=== PATIENT | female | born 1950 | race Caucasian/White ===

== ENCOUNTER 2016-02-22 07:26 | Inpatient (IN) | payer OTHER, MEDICARE ==
[2016-02-22] MEDS ORDERED: morphine CARPU-JECT 2 MG/1 ML DISP.SYRIN IVPUSH ONE (08:08)
--- NOTE | 2016-02-22 08:09 | PDOC ---
Attending Attestation - Resident Resident Name: Galilea Wall - ED Attending Attestation I have performed the following: I have examined & evaluated the patient, The case was reviewed & discussed with the resident, I agree w/resident's findings & plan, Exceptions are as noted - HPI HPI: 02/22/16 08:08 The patient is a 65-year-old female who presents to the emergency department with hip pain, status post mechanical fall. She does report head trauma, but denies loss of consciousness. - Physicial Exam PE: 02/22/16 08:08 Vitals noted C-spine nontender Left hip with pain on any range of motion and palpation - Medical Decision Making 02/22/16 08:08 She is well-appearing, and in mild pain secondary to the left hip Will obtain head CT, labs, chest x-ray, hip x-ray 02/22/16 12:[address] noted There is no evidence of hip fracture However, the patient is unable to transfer out of the bed She is unable to stand She is unable to bear weight She states that she will be unable to perform her activities of daily living, and her will not be able to assist her Will admit for intractable pain secondary to a hip contusion Case discussed in detail with admitting provider including history, physical exam and ancillary studies. Admitting physician has assumed care for the patient, will follow all pending diagnostics and will complete the evaluation and treatment.
[2016-02-22] MEDS ORDERED: morphine CARPU-JECT 2 MG/1 ML DISP.SYRIN ONE (08:22)
[2016-02-22 08:47] LABS: EOSINOPHIL 17.5 % (0-4.5); MCH 26.6 pg (25.7-33.7); MCHC 32.3 g/dl (32.0-36.0); MEAN CELL VOLUME 82.2 fl (80-96); MEAN PLT VOLUME 9.2 fl (7.5-11.1); NEUTROPHILS 50.5 % (42.8-82.8); PLATELET COUNT 235 K/MM3 (134-434); RDW 15.1 % (11.6-15.6); WHITE BLOOD COUNT 10.9 K/mm3 (4.0-10.0)
--- NOTE | 2016-02-22 08:52 | PDOC ---
History of Present Illness <Lou Pulliam - Last Filed: 02/22/16 16:21> - History of Present Illness Initial Comments: 02/22/16 08:55 Patient is a 65 year old female with a PMHx of HTN, DM, Dermatitis with lymphedema, restless leg syndrome, fibromyalgia who presents to the ED s/p fall after feeling lightheaded this morning landing on her left hip. Patient reports she took benadryl this morning which caused her to be drowsy and lightheaded. Patient states she did hit her head when she fell and is having severe left hip and thigh pain, which prompted this ED visit. Patient denies urinary or bowel incontinence. She denies chest pain, palpitations, shortness of breath She denies fever, chills, nausea, vomiting She denies seizures, dizziness, headaches, loss of consciousness, acute visual changes PMHx: HTN, DM, Dermatitis with lymphedema, restless leg syndrome, fibromyalgia PSHx: Hysterectomy MEDS: Refer to ambulatory Allergies: Penicillins and Sulfa Social: Denies alcohol, drugs, and smoking PCP: Not on staff <Galilea Wall - Last Filed: 02/22/16 16:49> - General Chief Complaint: Injury Stated Complaint: SYNCOPE Time Seen by Provider: 02/22/16 08:04 Past History <Lou Pulliam - Last Filed: 02/22/16 16:21> - Past Medical History Diabetes: Yes HTN: Yes Psychiatric Problems: Yes - Surgical History Abdominal Surgery: Yes - Psycho/Social/Smoking Cessation Hx Suicidal Ideation: No Smoking History: Never smoked Have you smoked in the past 12 months: No Information on smoking cessation initiated: No Hx Alcohol Use: No Drug/Substance Use Hx: No Substance Use Type: None <Galilea Wall - Last Filed: 02/22/16 16:49> - Past Medical History Allergies/Adverse Reactions: Allergies Allergy/AdvReac Type Severity Reaction Status Date / Time Penicillins Allergy Verified 02/22/16 07:59 Sulfa (Sulfonamide Allergy Verified 02/22/16 07:59 Antibiotics) Home Medications: Ambulatory Orders Escitalopram Oxalate [Lexapro -] 10 mg PO DAILY 02/22/16 Furosemide [Lasix] 40 mg PO DAILY 02/22/16 Lisinopril [Prinivil] 10 mg PO DAILY 02/22/16 Metformin HCl [Glucophage] 500 mg PO DAILY 02/22/16 Oxycodone HCl/Acetaminophen [Percocet 5-325 mg Tablet] 1 - 2 tab PO HS 02/22/16 Pramipexole Di-HCl [Mirapex] 0.25 mg PO TID 02/22/16 Review of Systems - Review of Systems Constitutional: No: Chills, Diaphoresis, Fever, Night Sweats HEENTM: No: Blurred Vision, Throat Swelling, Difficulty Swallowing Respiratory: No: Cough, Shortness of Breath, SOB with Exertion, Wheezing, Productive cough Cardiac (ROS): Yes: Lightheadedness. No: Chest Pain, Edema, Irregular Heart Rate, Palpitations, Syncope, Chest Tightness ABD/GI: No: Diarrhea, Nausea, Vomiting, Abdominal cramping : No: Burning, Dysuria, Discharge Musculoskeletal: Yes: Joint Pain (chronic ). No: Back Pain, Muscle Pain Integumentary: No: Bruising, Dryness, Erythema Neurological: No: Headache, Numbness, Paresthesia, Seizure, Tingling, Tremors Endocrine: No: Flushing, Change in Weight Hematologic/Lymphatic: No: Anemia, Blood Clots <Galilea Wall - Last Filed: 02/22/16 16:49> *Physical Exam - Vital Signs Last Vital Signs Temp Pulse Resp BP Pulse Ox 98.2 F 94 H 18 111/77 99 02/22/16 07:48 02/22/16 07:48 02/22/16 07:48 02/22/16 07:48 02/22/16 07:48 <Lou Pulliam - Last Filed: 02/22/16 16:21> - Vital Signs Last Vital Signs Temp Pulse Resp BP Pulse Ox 98.2 F 94 H 18 111/77 99 02/22/16 07:48 02/22/16 07:48 02/22/16 07:48 02/22/16 07:48 02/22/16 07:48 <Galilea Wall - Last Filed: 02/22/16 16:49> Heart Score/ECG Review - ECG Intrepretation Comment:: 02/22/16 13:44 ECG obtained at 07:57 Normal sinus at 87 bpm Low voltage QRS <Lou Pulliam - Last Filed: 02/22/16 16:21> ED Treatment Course - LABORATORY CBC & Chemistry Diagram: 02/22/16 08:16 02/22/16 08:16 - ADDITIONAL ORDERS Additional order review: Laboratory Results 02/22/16 02/22/16 02/22/16 08:16 08:16 08:06 INR 1.11 PTT (Actin FS) 33.3 Sodium 140 Potassium 4.1 Chloride 103 Carbon Dioxide 30 Anion Gap 7 L BUN 18 Creatinine 1.1 H Creat Clearance w eGFR 49.69 Random Glucose 112 H Calcium 8.8 Total Bilirubin 0.2 AST 14 L ALT 19 Alkaline Phosphatase 84 Creatine Kinase 55 Troponin I < 0.02 Total Protein 7.1 Albumin 3.4 Blood Type A POSITIVE Antibody Screen Negative 02/22/16 08:16 RBC 4.20 MCV 82.2 MCHC 32.3 RDW 15.1 MPV 9.2 Neutrophils % 50.5 Lymphocytes % 24.9 Monocytes % 6.1 Eosinophils % 17.5 H Basophils % 1.0 - RADIOLOGY Radiograph Interpretation: 02/22/16 16:22 Left hip and pelvis x-ray as reviewed by Dr. Long reports no acute fracture. Chest X-ray as reviewed by Dr. Cameron reports no acute pathology. Head CT as reviewed by Dr. Montgomery reports no evidence of mass, hemmorhage, or acute vascular territory infarction. CT of the lower extremity and CT of pelvis as reviewed by Dr. Montgomery reports no CT evidence of acute fracture or dislocation. No definite hematoma or collections identified with normal visualization of urinary bladder. Normal images through the pelvis and retroperitoneum with no suspicious findings identified. Inguinal region lymph nodes identified bilaterally. - Medications Given in the ED: ED Medications Discontinued Medications Generic Name Dose Route Start Last Admin Trade Name Freq PRN Reason Stop Dose Admin Hydromorphone HCl 1 mg 02/22/16 09:32 02/22/16 09:38 Dilaudid Injection - IVPUSH 02/22/16 09:33 1 mg ONCE ONE Administration Morphine Sulfate 2 mg 02/22/16 08:08 02/22/16 08:29 Morphine Injection - IVPUSH 02/22/16 08:09 2 mg ONCE ONE Administration <Lou Pulliam - Last Filed: 02/22/16 16:21> - LABORATORY CBC & Chemistry Diagram: 02/22/16 08:16 02/22/16 08:16 - ADDITIONAL ORDERS Additional order review: 02/22/16 08:16 RBC 4.20 MCV 82.2 MCHC 32.3 RDW 15.1 MPV 9.2 Neutrophils % 50.5 Lymphocytes % 24.9 Monocytes % 6.1 Eosinophils % 17.5 H Basophils % 1.0 - RADIOLOGY Radiology Studies Ordered: Category Date Time Status HEAD CT WITHOUT CONTRAST [CT] Stat CT Scan 02/22/16 08:06 Ordered CHEST X-RAY PORTABLE* [RAD] Stat Radiology 02/22/16 08:07 Completed HIP & PELVIS-LEFT [RAD] Stat Radiology 02/22/16 08:10 Ordered - Medications Given in the ED: ED Medications Discontinued Medications Generic Name Dose Route Start Last Admin Trade Name Carlo PRN Reason Stop Dose Admin Morphine Sulfate 2 mg 02/22/16 08:08 02/22/16 08:29 Morphine Injection - IVPUSH 02/22/16 08:09 2 mg ONCE ONE Administration <Galilea Wall - Last Filed: 02/22/16 16:49> Medical Decision Making - Medical Decision Making 02/22/16 11:13 <Lou Pulliam - Last Filed: 02/22/16 16:21> *DC/Admit/Observation/Transfer - Attestations Scribe Attestion: 02/22/16 11:16 Documentation prepared by Lou Pulliam, acting as er medical technician for Galilea Wall MD/. <Lou Pulliam - Last Filed: 02/22/16 16:21> - Discharge Dispostion Admit: Yes <Galilea Wall - Last Filed: 02/22/16 16:49> Diagnosis at time of Disposition: Intractable pain Contusion, hip Qualifiers: Encounter type: initial encounter Laterality: left Qualified Code(s): S70.02XA - Contusion of left hip, initial encounter - Referrals - Patient Instructions Addendum entered and electronically signed by Galilea Wall RES 02/22/16 19:38 : Physical Exam Vital Sings: Vital Signs Temperature 98.2 F 02/22/16 07:48 Pulse Rate 88 02/22/16 14:11 Respiratory Rate 18 02/22/16 14:11 Blood Pressure 113/53 02/22/16 14:11 O2 Sat by Pulse Oximetry (%) 96 02/22/16 14:11 Constitutional: Yes: Other (Awake, alert, and in painful distress ) Eyes: Yes: WNL, Conjunctiva Clear HENT: Yes: WNL, Atraumatic, Normocephalic Neck: Yes: WNL, Supple Cardiovascular: Yes: WNL, Regular Rate and Rhythm Respiratory: Yes: WNL, Regular, CTA Bilaterally Gastrointestinal: Yes: Abdomen, Obese. No: Tenderness, Epigastrium, Tenderness , Rebound, Vomiting Extremities: Yes: Other (unable to move right leg, with pain upon palpation of left hip and thigh ) Edema: Yes Edema: LLE: 3+ (with chronic erythema), RLE: 3+ (with chronic erythema ) Neurological: Yes: WNL, Alert, Oriented. No: Aphasia, Confusion, Dysarthria, Facial Droop, Numbness, Tingling, Tremors Psychiatric: Yes: WNL, Alert, Oriented Labs: CBC, BMP 02/22/16 08:16 02/22/16 08:16
[2016-02-22 09:03] LABS: ACTIVATED PTT 33.3 SECONDS (26.9-34.4)
[2016-02-22 09:06] LABS: ALBUMIN 3.4 g/dl (3.4-5.0); ALK PHOS 84 U/L (45-117); ANION GAP 7 (8-16); BILIRUBIN,TOTAL 0.2 mg/dL (0.2-1.0); CALCIUM 8.8 mg/dL (8.5-10.1); CO2 30 mmol/L (21-32); CREATININE 1.1 mg/dL (0.55-1.02); GLUCOSE,RANDOM 112 mg/dL (74-106); SGOT/AST 14 U/L (15-37); SGPT/ALT 19 U/L (12-78); TOT PROT 7.1 g/dl (6.4-8.2)
[2016-02-22 09:09] LABS: TROPONIN I < 0.02 ng/ml (0.00-0.05)
[2016-02-22 09:31] LABS: INR 1.11 (0.82-1.09); PROTHROMBIN TIME (PATIENT) 12.2 SEC (9.98-11.88)
[2016-02-22] MEDS ORDERED: HYDROmorphone HCL CARPU-JECT 1 MG/1 ML DISP.SYRIN IVPUSH ONE (09:32)
[2016-02-22] MEDS ORDERED: HYDROmorphone HCL CARPU-JECT 1 MG/1 ML DISP.SYRIN ONE (09:36)
--- NOTE | 2016-02-22 12:23 | EKG ---
Test Reason : Blood Pressure : / mmHG Vent. Rate : 087 BPM Atrial Rate : 087 BPM P-R Int : 166 ms QRS Dur : 082 ms QT Int : 376 ms P-R-T Axes : 058 032 050 degrees QTc Int : 452 ms POOR DATA QUALITY, INTERPRETATION MAY BE ADVERSELY AFFECTED NORMAL SINUS RHYTHM LOW VOLTAGE QRS BORDERLINE ECG NO PREVIOUS ECGS AVAILABLE Confirmed by JUAN RIBERA MD ([id number]) on 02/22/2016 12:22:54 PM Referred By: Confirmed By:JUAN RIBERA MD
[2016-02-22] MEDS ORDERED: diphenhydrAMINE HCL 25 MG CAPSULE (FP) PO ONE ×4 (14:03→15:21)
[2016-02-22] MEDS: PRAMIPEXOLE DIHYDROCHLORIDE 0.25 MG TABLET PO SCH ×3 (14:08→23:02)
[2016-02-22] MEDS ORDERED: HEMOQUE TEST 1 EACH EACH ONE (17:22)
[2016-02-22] MEDS: INSULIN SLIDING SCALE (NOVOLOG) 1 VIAL SQ SCH ×2 (17:29→23:02)
[2016-02-22 17:36] LABS: TROPONIN I < 0.02 ng/ml (0.00-0.05)
[2016-02-22] MEDS ORDERED: OXYCODONE/APAP 5/325MG COMBO TABLET PO SCH (22:00)
[2016-02-22 22:26] VITALS: BMI 54.6
[2016-02-22] MEDS: ACETAMINOPHEN 325 MG TABLET (FP) PO SCH (23:11)
[2016-02-22] MEDS: oxyCODONE HCL 5 MG TABLET PO SCH (23:11)
[2016-02-23] MEDS: PRAMIPEXOLE DIHYDROCHLORIDE 0.25 MG TABLET PO SCH ×3 (06:53→22:02)
[2016-02-23] MEDS: metFORMIN HCL 500 MG TABLET (FP) PO SCH (06:53)
[2016-02-23] MEDS: INSULIN SLIDING SCALE (NOVOLOG) 1 VIAL SQ SCH ×4 (06:54→22:04)
[2016-02-23 08:19] LABS: BASOPHIL 0.8 % (0-2.0); EOSINOPHIL 14.2 % (0-4.5); MCH 26.7 pg (25.7-33.7); MCHC 32.5 g/dl (32.0-36.0); MEAN PLT VOLUME 9.4 fl (7.5-11.1); NEUTROPHILS 56.5 % (42.8-82.8); PLATELET COUNT 201 K/MM3 (134-434); RDW 15.2 % (11.6-15.6); WHITE BLOOD COUNT 9.7 K/mm3 (4.0-10.0)
[2016-02-23 08:41] LABS: ANION GAP 5 (8-16); CALCIUM 8.4 mg/dL (8.5-10.1); CO2 28 mmol/L (21-32); GLUCOSE,RANDOM 94 mg/dL (74-106)
[2016-02-23 08:46] LABS: ALK PHOS 72 U/L (45-117); BILIRUBIN,TOTAL 0.5 mg/dL (0.2-1.0); CREATININE 0.9 mg/dL (0.55-1.02); SGOT/AST 59 U/L (15-37); SGPT/ALT 25 U/L (12-78); TOT PROT 6.3 g/dl (6.4-8.2)
[2016-02-23] MEDS: FUROSEMIDE 40 MG TABLET (FP) PO SCH (10:08)
[2016-02-23] MEDS: ESCITALOPRAM OXALATE 10 MG TABLET (FP) PO SCH (10:08)
[2016-02-23] MEDS: LISINOPRIL 10 MG TABLET (FP) PO SCH (10:08)
--- NOTE | 2016-02-23 10:08 | HP ---
Admitting History and Physical - Admission Chief Complaint: s/p fall History of Present Illness: Patient is a 65 year old female with a PMHx of HTN, DM, Dermatitis with lymphedema, restless leg syndrome, fibromyalgia who presents to the ED s/p fall after feeling lightheaded this morning landing on her left hip. Patient reports she took benadryl this morning which caused her to be drowsy and lightheaded. Patient states she did hit her head when she fell and is having severe left hip and thigh pain, which prompted this ED visit. Patient denies urinary or bowel incontinence. She denies chest pain, palpitations, shortness of breath She denies fever, chills, nausea, vomiting She denies seizures, dizziness, headaches, loss of consciousness, acute visual changes PMHx: HTN, DM, Dermatitis with lymphedema, restless leg syndrome, fibromyalgia PSHx: Hysterectomy MEDS: Refer to ambulatory Allergies: Penicillins and Sulfa Social: Denies alcohol, drugs, and smoking PCP: Not on staff per patient she went downstairs to eat cookie and then didnot feel good and got up top call her then next thing she remeber was falling she has been feeling lighteaded and uncoordinated in last few days and has been dropping things whatever she picks up she drops, per patient she has been taking benadryl for her itchy legs for a long time and uses eucerin cream per patient she feels unsteady on her feet History Source: Patient - Past Medical History Cardiovascular: Yes: HTN, Hyperlipdemia ...: No Musculoskeletal: Yes: Other (dermatitis) Rheumatology: Yes: Fibromyalgia Endocrine: Yes: Diabetes Mellitus - Past Surgical History Past Surgical History: Yes: , Hysterectomy Additional Past Surgical History: shoulder repair - Smoking History Smoking history: Never smoked Have you smoked in the past 12 months: No - Alcohol/Substance Use Hx Alcohol Use: No Home Medications - Allergies Allergies/Adverse Reactions: Allergies Allergy/AdvReac Type Severity Reaction Status Date / Time Penicillins Allergy Verified 02/22/16 07:59 Sulfa (Sulfonamide Allergy Verified 02/22/16 07:59 Antibiotics) - Home Medications Home Medications: Ambulatory Orders Escitalopram Oxalate [Lexapro -] 10 mg PO DAILY 02/22/16 Furosemide [Lasix] 40 mg PO DAILY 02/22/16 Lisinopril [Prinivil] 10 mg PO DAILY 02/22/16 Metformin HCl [Glucophage] 500 mg PO DAILY 02/22/16 Oxycodone HCl/Acetaminophen [Percocet 5-325 mg Tablet] 1 - 2 tab PO HS 02/22/16 Pramipexole Di-HCl [Mirapex] 0.25 mg PO TID 02/22/16 Review of Systems - Review of Systems Neck: reports: No Symptoms Cardiovascular: reports: No Symptoms Respiratory: reports: No Symptoms Gastrointestinal: reports: No Symptoms Physical Examination Vital Signs: Vital Signs Temperature 99.3 F 02/23/16 05:42 Pulse Rate 96 H 02/23/16 05:42 Respiratory Rate 18 02/23/16 05:42 Blood Pressure 116/50 02/23/16 05:42 O2 Sat by Pulse Oximetry (%) 98 02/23/16 04:00 Constitutional: Yes: Calm Cardiovascular: Yes: Regular Rate and Rhythm, S1, S2 Respiratory: Yes: CTA Bilaterally Gastrointestinal: Yes: Normal Bowel Sounds, Soft Extremities: Yes: Other (lymphedema) Edema: Yes Labs: CBC, BMP 02/23/16 07:40 02/23/16 07:40 Problem List - Problems (1) Contusion, hip Assessment/Plan: PT eval LS spine done negative neuro eval carotid doppler echo will hold po benadryl and try bendaryl cream instead iv hydration for anohter 12 hrs for elevated CK Code(s): S70.00XA - CONTUSION OF UNSPECIFIED HIP, INITIAL ENCOUNTER Qualifiers : Encounter type: initial encounter Laterality: left Qualified Code(s ): S70.02XA - Contusion of left hip, initial encounter (2) Diabetes Assessment/Plan: metformin check bmg [id number] lipid panel Code(s): E11.9 - TYPE 2 DIABETES MELLITUS WITHOUT COMPLICATIONS Qualifiers: Diabetes mellitus type: type 2 (3) HTN (hypertension) Assessment/Plan: lisinopril Code(s): I10 - ESSENTIAL (PRIMARY) HYPERTENSION (4) Restless leg syndrome Assessment/Plan: mirapex Code(s): G25.81 - RESTLESS LEGS SYNDROME
[2016-02-23] MEDS ORDERED: MINERAL OIL/PETROLAT/WATER TOPICAL CREAM 454 GM JAR TP PRN (10:09)
[2016-02-23] MEDS ORDERED: SODIUM CHLORIDE 1,000 ML IV SCH (10:30)
--- NOTE | 2016-02-23 18:26 | CONSULT ---
Consult - text type - Consultation Consultation Note: NEUROLOGY CONSULTATION is greatly appreciated: This 65 yo RH woman with h/o HTN, DM, depression, lymphedema on insulin , lisinopril, lexapro, glucophage and lasix is well-known to me for treatment of chronic Restless Legs Syndrome (RLS) with Pramipexole .375 mg BID and 1.125 mg qHS. Over the last month has had increased leg swelling and redness for which Dr. Manjinder Dietz gave Bioxin 500 mg BID about 2 weeks ago without significant improvement in leg redness or swelling. Has felt "weak" and "unwell" over the last few weeks. Walks with cane at home but has "2 walkers." Now admitted after a fall in her kitchen yesterday morning. + head trauma. -LOC. Patient denies sequellae. Patient feels "a little steadier" in PT today and could walk up steps. NAHOMY: Obese. Scattered petichial skin lesions over arms and legs. No evidence of external head trauma. B/L lymphedema with diffuse erythema, blisters. NEURO: awake, alert, MS/speech: Normal CN II-XII: Normal. Motor: No drift. Normal strength. Decreased LE reflexes No FTN Dystaxia Decreased vibration in feet. Slight shuffle, slight waddle. IMP: Essentially normal Neurological Exam RLS Diabetic Peripheral Neuropathy. Syncope vs simple fall. SUGGEST: Check orthostatic BP's. Increase pramipexole to .25 BID and .5 qHS. Consider ID consult and possible Rx of cellulitis Continue PT with walker. Encourage use of walker at home. Dermatology consult. Check ESR, CRP, CASSANDRA, CK. Thank you very much, Gurmeet Loyd MD
[2016-02-23] MEDS ORDERED: PT OWN MED DRAWER 7, Y5N ONE (21:40)
[2016-02-23] MEDS: ACETAMINOPHEN 325 MG TABLET (FP) PO SCH (22:02)
[2016-02-23] MEDS: HEPARIN NA (PORCINE) 5,000 UNITS/ML 1ML VIAL SQ SCH (22:02)
[2016-02-23] MEDS: oxyCODONE HCL 5 MG TABLET PO SCH (22:03)
[2016-02-24] MEDS ORDERED: PT OWN MED DRAWER 7, Y5N ONE ×3 (05:47→21:51)
[2016-02-24] MEDS: PRAMIPEXOLE DIHYDROCHLORIDE 0.25 MG TABLET PO SCH ×3 (06:06→21:57)
[2016-02-24] MEDS: INSULIN SLIDING SCALE (NOVOLOG) 1 VIAL SQ SCH ×4 (06:07→21:57)
[2016-02-24] MEDS: metFORMIN HCL 500 MG TABLET (FP) PO SCH (06:38)
[2016-02-24 09:47] LABS: ALK PHOS 70 U/L (45-117); ANION GAP 5 (8-16); BILIRUBIN,TOTAL 0.4 mg/dL (0.2-1.0); CHOLESTEROL 151 mg/dL (50-200); CO2 26 mmol/L (21-32); CREATININE 0.8 mg/dL (0.55-1.02); GLUCOSE,RANDOM 86 mg/dL (74-106); SGOT/AST 45 U/L (15-37); SGPT/ALT 22 U/L (12-78); TOT PROT 6.3 g/dl (6.4-8.2)
[2016-02-24 09:49] LABS: C-REACTIVE PROTEIN 2.9 MG/DL (0.00-0.3)
[2016-02-24] MEDS: HEPARIN NA (PORCINE) 5,000 UNITS/ML 1ML VIAL SQ SCH ×2 (10:08→21:57)
[2016-02-24] MEDS: LISINOPRIL 10 MG TABLET (FP) PO SCH (10:08)
[2016-02-24] MEDS: ESCITALOPRAM OXALATE 10 MG TABLET (FP) PO SCH (10:08)
[2016-02-24] MEDS: FUROSEMIDE 40 MG TABLET (FP) PO SCH (10:08)
[2016-02-24 10:23] LABS: BASOPHIL 0.6 % (0-2.0); EOSINOPHIL 14.2 % (0-4.5); MCH 26.7 pg (25.7-33.7); MCHC 32.4 g/dl (32.0-36.0); MEAN CELL VOLUME 82.3 fl (80-96); MEAN PLT VOLUME 9.8 fl (7.5-11.1); NEUTROPHILS 55.3 % (42.8-82.8); PLATELET COUNT 185 K/MM3 (134-434); RDW 14.8 % (11.6-15.6); WHITE BLOOD COUNT 9.6 K/mm3 (4.0-10.0)
--- NOTE | 2016-02-24 12:59 | PN ---
Progress Note, Physician History of Present Illness: FEELS BETTER NO DIZZINESS - Current Medication List Current Medications: Active Medications Acetaminophen (Tylenol -) 325 mg PO HS [facility] Last Admin: 02/23/16 22:02 Dose: 325 mg Escitalopram Oxalate (Lexapro -) 10 mg PO DAILY [facility] Last Admin: 02/24/16 10:08 Dose: 10 mg Furosemide (Lasix -) 40 mg PO DAILY [facility] Last Admin: 02/24/16 10:08 Dose: 40 mg Heparin Sodium (Porcine) (Heparin -) 5,000 unit SQ BID [facility] Last Admin: 02/24/16 10:08 Dose: 5,000 unit Insulin Aspart (Novolog Vial Sliding Scale -) 1 vial SQ ACHS [facility] PRN Reason: Protocol Last Admin: 02/24/16 11:48 Dose: Not Given Lisinopril (Prinivil) 10 mg PO DAILY [facility] Last Admin: 02/24/16 10:08 Dose: 10 mg Metformin HCl (Glucophage -) 500 mg PO ACBK [facility] Last Admin: 02/24/16 06:38 Dose: 500 mg Multi-Ingredient Lotion (Eucerin (Large Jar) -) 1 applic TP BID PRN PRN Reason: DRY SKIN Oxycodone HCl (Roxicodone -) 5 mg PO HS [facility] Last Admin: 02/23/16 22:03 Dose: 5 mg Pramipexole Dihydrochloride (Mirapex -) 0.25 mg PO TID [facility] Last Admin: 02/24/16 06:06 Dose: 0.25 mg Zinc Acetate/Diphenhydramine (Benadryl 2% Cream) 1 applic TP TID [facility] Last Admin: 02/24/16 06:06 Dose: 1 applic - Objective Vital Signs: Vital Signs Temperature 98.3 F 02/24/16 06:00 Pulse Rate 86 02/24/16 06:00 Respiratory Rate 20 02/24/16 06:00 Blood Pressure 100/59 02/24/16 06:00 O2 Sat by Pulse Oximetry (%) 98 02/23/16 20:00 Cardiovascular: Yes: Regular Rate and Rhythm, Murmur Respiratory: Yes: Regular, CTA Bilaterally Gastrointestinal: Yes: Normal Bowel Sounds, Soft Edema: Yes Integumentary: Yes: Erythema, Venous Stasis Changes Labs: CBC, BMP 02/24/16 07:25 02/24/16 07:25 INR, PTT INR 1.11 (0.82-1.09) 02/22/16 08:16 Problem List - Problems (1) Contusion, hip Assessment/Plan: PT MONITOR CT NO FX Code(s): S70.00XA - CONTUSION OF UNSPECIFIED HIP, INITIAL ENCOUNTER Qualifiers : Encounter type: initial encounter Laterality: left Qualified Code(s ): S70.02XA - Contusion of left hip, initial encounter (2) Diabetes Assessment/Plan: BGM Code(s): E11.9 - TYPE 2 DIABETES MELLITUS WITHOUT COMPLICATIONS Qualifiers: Diabetes mellitus type: type 2 (3) HTN (hypertension) Assessment/Plan: MONITOR STABLE Vital Signs Period Temp Pulse Resp BP Sys/Garcia Pulse Ox Last 24 Hr 98.2 F-99.6 F 86-98 20-20 100-141/49-80 98 Code(s): I10 - ESSENTIAL (PRIMARY) HYPERTENSION (4) Restless leg syndrome Assessment/Plan: PER NEURO Code(s): G25.81 - RESTLESS LEGS SYNDROME (5) Anemia Assessment/Plan: W/U ORDERED FOLLOW CBC Code(s): D64.9 - ANEMIA, UNSPECIFIED (6) Syncope Assessment/Plan: POSSIBLE--VS FALL?? W/U IN PROGRESS CARDIO Code(s): R55 - SYNCOPE AND COLLAPSE (7) Edema Assessment/Plan: ON DIURETICS ID CONSULT__POSSIBLE CELLULITIS Code(s): R60.9 - EDEMA, UNSPECIFIED (8) Aortic stenosis Assessment/Plan: CARDIO Code(s): I35.0 - NONRHEUMATIC AORTIC (VALVE) STENOSIS
--- NOTE | 2016-02-24 15:19 | CONSULT ---
Consult Consult Specialty:: Cardiology Referred by:: Dr Weinberg Reason for Consultation:: Aortic stenosis - History of Present Illness Chief Complaint: Fall History of Present Illness: 65 yo obese female, with HTN, DM, Dermatitis with lymphedema, restless leg syndrome, fibromyalgia here s/p fall after feeling lightheaded in setting of benadryl use. Patient has no hx of CT or CP syndrome or CHF. She knows she has mild and is followed by Dr Angel Isaac at [facility]. She doesn't sleep much at night, was sitting at her kitchen counter at 5:30 in AM, working on computer when she felt "odd", dizzy and fell. She remembers falling and denies LOC. She also denies CP, palpitations or SOB. At baseline, she has no dizziness, CP, syncope. Echo done yesterday shows mild AAS . Hence this consult - Past Medical History Cardio/Vascular: Yes: Aortic Stenosis (followe dby Dr Angel Isaac), HTN, Hyperlipdemia, Other (edema/lymohedema -. lasix bid) ...: No Musculoskeletal: Yes: Other (dermatitis) Rheumatology: Yes: Fibromyalgia Endocrine: Yes: Diabetes Mellitus - Past Surgical History Past Surgical History: Yes: , Hysterectomy Additional Surgical History: b/l rotator cuff surgeries - Alcohol/Substance Use Hx Alcohol Use: No - Smoking History Smoking history: Never smoked Have you smoked in the past 12 months: No - Social History Usual Living Arrangement: With Spouse Home Medications - Allergies Allergies/Adverse Reactions: Allergies Allergy/AdvReac Type Severity Reaction Status Date / Time Penicillins Allergy Verified 02/22/16 07:59 Sulfa (Sulfonamide Allergy Verified 02/22/16 07:59 Antibiotics) - Home Medications Home Medications: Ambulatory Orders Escitalopram Oxalate [Lexapro -] 10 mg PO DAILY 02/22/16 Furosemide [Lasix] 40 mg PO DAILY 02/22/16 Lisinopril [Prinivil] 10 mg PO DAILY 02/22/16 Metformin HCl [Glucophage] 500 mg PO DAILY 02/22/16 Oxycodone HCl/Acetaminophen [Percocet 5-325 mg Tablet] 1 - 2 tab PO HS 02/22/16 Pramipexole Di-HCl [Mirapex] 0.25 mg PO TID 02/22/16 Family Disease History - Family Disease History Family History: Denies (premature CAD) Review of Systems - Review of Systems Constitutional: reports: No Symptoms Eyes: reports: No Symptoms HENT: reports: No Symptoms Neck: reports: No Symptoms Cardiovascular: reports: Edema Gastrointestinal: reports: No Symptoms Genitourinary: reports: No Symptoms Musculoskeletal: reports: Muscle Weakness Neurological: reports: Dizziness Psychiatric: reports: No Symptoms Physical Exam Vital Signs: Vital Signs Temperature 97.6 F 02/24/16 13:29 Pulse Rate 106 H 02/24/16 13:29 Respiratory Rate 22 02/24/16 13:29 Blood Pressure 125/64 02/24/16 10:00 O2 Sat by Pulse Oximetry (%) 98 02/24/16 12:00 Constitutional: Yes: No Distress, Obese Eyes: Yes: Conjunctiva Clear HENT: Yes: Atraumatic Neck: Yes: Supple Cardiovascular: Yes: Regular Rate and Rhythm, Murmur (KOREY at base) Respiratory: Yes: CTA Bilaterally Gastrointestinal: Yes: Normal Bowel Sounds, Soft, Abdomen, Obese. No: Tenderness Extremities: Yes: Other (warm, lymphedematous changes) Edema: Yes Peripheral Pulses WNL: Yes Neurological: Yes: Alert, Oriented Psychiatric: Yes: Alert, Oriented Labs: CBC, BMP 02/24/16 07:25 02/24/16 07:25 Imaging - Results Chest X-ray: Report Reviewed, Image Reviewed EKG: Report Reviewed, Image Reviewed Other: Other (Echo (02/23/16) -. Nl LV function. mild LAE, trace-mild MR, mild TR , PASP 30-40, mild ) Assessment/Plan 65 yo obese female, with the above history, here with a fall. She denies LOC, though it is possible that she may have fallen asleep. She remembers not feeling right, before she feel. No evidence of ACS or CHF ? orthostasis, which pramiprexole can cause -. ordered, but not yet done Mild on echo (known to pt 0) -> would not cause symptoms at that level. Rec: Proceed with orthostatics No other cardiac testing warranted Continue current meds Pamiprexole being tapered by Dr Loyd Consider oupt lymphedema therapy Pt to follow with regular beam house inspector after d/c Thanks!
--- NOTE | 2016-02-24 15:31 | PN ---
Progress Note (short form) - Note Progress Note: ID Consult dictated Bilateral LE cellulitis PCN allergy Empiric vancomycin 1gm IVPB q12h
[2016-02-24] MEDS ORDERED: VANCOMYCIN 1 GRAM (PRE-DOCKED) 250 ML IVPB SCH (16:00)
[2016-02-24] MEDS: VANCOMYCIN 1 GRAM (PRE-DOCKED) 250 ML IVPB SCH (17:20)
[2016-02-24 17:58] LABS: FERRITIN 46.758 ng/ml (6.9-282.5); LDL CHOLESTEROL (ONLY SJRH) 101 mg/dL (5-100)
--- NOTE | 2016-02-24 19:47 | CONS ---
DATE OF CONSULTATION: DATE OF DICTATION: 02/24/2016 HISTORY OF PRESENT ILLNESS: The patient is a 65-year-old female who was evaluated for bilateral lower extremity cellulitis. She was admitted to the hospital on February 22, 2016, after a fall. She had sustained trauma to her left hip. She reports that over the past several weeks, she has had increasing lower extremity swelling. She had been treated as an outpatient with Biaxin for possible cellulitis without significant improvement. She has a history of PENICILLIN and SULFA allergies. She is now noted to have patchy erythema and warmth involving both lower extremities bilaterally. She denies any traumatic injury other than the fall. No insect or animal bites or scratches. No associated fever or chills. She has had no recent hospitalizations. PAST MEDICAL HISTORY: Positive for hypertension, diabetes mellitus, chronic lymphedema of the lower extremities bilaterally, restless leg syndrome, fibromyalgia. PAST SURGICAL HISTORY: Status post hysterectomy. ALLERGIES: PENICILLIN and SULFA. MEDICATIONS: Include Tylenol, Prinivil, heparin, Lexapro, Glucophage, NovoLog, Lasix, oxycodone. SOCIAL HISTORY: She lives at home with her . She is a nonsmoker, nondrinker. No recent travel or pet exposure. SYSTEMS REVIEW: Neurologic: No loss of consciousness, seizure activity, focal weakness. Cardiac: Negative chest pain or palpitations. Respiratory: Negative cough or sputum production. Gastrointestinal: Negative vomiting. No diarrhea. Genitourinary: Negative urinary tract infection. LABORATORY DATA: White count 9.6, hematocrit 30.8, platelet count 185, creatinine 0.8. PHYSICAL EXAMINATION: General: On examination, she is awake and alert. She is no acutely toxic appearing. She is obese. Vital Signs: Temperature 97.6, blood pressure 135/67, pulse 94 and regular, respirations 20 per minute. HEENT: Sclerae anicteric. Heart: Heart sounds S1, S2. Lungs: Clear. Abdomen: Obese, soft, nontender. Extremities: Positive for bilateral lower extremity edema and lymphedema. There is patchy erythema involving both lower extremities as well as superficial ulcerations. There is no lymphangitic streaking. She also has dry ulcerations of the upper extremities bilaterally. IMPRESSION: 1. Bilateral lower extremity cellulitis. 2. Chronic lymphedema of the lower extremities bilaterally. 3. PENICILLIN and SULFA allergies. PLAN: Will obtain blood cultures to rule out possible secondary bacteremia. Empiric coverage skin pathogens in this PENICILLIN and SULFA allergic patient with vancomycin 1 g IV piggyback every 8 hours , diuretic therapy. Will follow. Thank you for the kind referral. ANN-MARIE BYRNE M.D. [id number]
[2016-02-24] MEDS: oxyCODONE HCL 5 MG TABLET PO SCH (21:57)
[2016-02-24] MEDS: ACETAMINOPHEN 325 MG TABLET (FP) PO SCH (21:58)
[2016-02-25] MEDS: VANCOMYCIN 1 GRAM (PRE-DOCKED) 250 ML IVPB SCH ×2 (03:38→16:48)
[2016-02-25] MEDS ORDERED: PT OWN MED DRAWER 7, Y5N ONE (06:08)
[2016-02-25] MEDS: INSULIN SLIDING SCALE (NOVOLOG) 1 VIAL SQ SCH ×4 (06:10→21:52)
[2016-02-25] MEDS: PRAMIPEXOLE DIHYDROCHLORIDE 0.25 MG TABLET PO SCH ×3 (06:10→21:47)
[2016-02-25] MEDS: metFORMIN HCL 500 MG TABLET (FP) PO SCH (06:10)
[2016-02-25 08:13] LABS: MCH 27.1 pg (25.7-33.7); MCHC 33.2 g/dl (32.0-36.0); MEAN CELL VOLUME 81.8 fl (80-96); PLATELET COUNT 198 K/MM3 (134-434); RDW 15.1 % (11.6-15.6); WHITE BLOOD COUNT 10.5 K/mm3 (4.0-10.0)
[2016-02-25] MEDS: FUROSEMIDE 40 MG TABLET (FP) PO SCH (09:48)
[2016-02-25] MEDS: ESCITALOPRAM OXALATE 10 MG TABLET (FP) PO SCH (09:49)
[2016-02-25] MEDS: HEPARIN NA (PORCINE) 5,000 UNITS/ML 1ML VIAL SQ SCH ×2 (09:49→21:47)
[2016-02-25] MEDS: LISINOPRIL 10 MG TABLET (FP) PO SCH (09:49)
--- NOTE | 2016-02-25 12:30 | PN ---
Progress Note, Physician History of Present Illness: FEELS BETTER NO DIZZINESS - Current Medication List Current Medications: Active Medications Acetaminophen (Tylenol -) 325 mg PO HS [facility] Last Admin: 02/24/16 21:58 Dose: 325 mg Escitalopram Oxalate (Lexapro -) 10 mg PO DAILY [facility] Last Admin: 02/25/16 09:49 Dose: 10 mg Furosemide (Lasix -) 40 mg PO DAILY [facility] Last Admin: 02/25/16 09:48 Dose: 40 mg Heparin Sodium (Porcine) (Heparin -) 5,000 unit SQ BID [facility] Last Admin: 02/25/16 09:49 Dose: 5,000 unit Vancomycin HCl (Vancomycin (Pre-Docked)) 250 mls @ 166.667 mls/hr IVPB BID@0400 ,1600 [facility] Last Admin: 02/25/16 03:38 Dose: 166.667 mls/hr Insulin Aspart (Novolog Vial Sliding Scale -) 1 vial SQ ACHS [facility] PRN Reason: Protocol Last Admin: 02/25/16 11:44 Dose: Not Given Lisinopril (Prinivil) 10 mg PO DAILY [facility] Last Admin: 02/25/16 09:49 Dose: 10 mg Metformin HCl (Glucophage -) 500 mg PO ACBK [facility] Last Admin: 02/25/16 06:10 Dose: 500 mg Multi-Ingredient Lotion (Eucerin (Large Jar) -) 1 applic TP BID PRN PRN Reason: DRY SKIN Oxycodone HCl (Roxicodone -) 5 mg PO HS [facility] Last Admin: 02/24/16 21:57 Dose: 5 mg Pramipexole Dihydrochloride (Mirapex -) 0.25 mg PO TID [facility] Last Admin: 02/25/16 06:10 Dose: 0.25 mg Zinc Acetate/Diphenhydramine (Benadryl 2% Cream) 1 applic TP TID [facility] Last Admin: 02/25/16 06:10 Dose: 1 applic - Objective Vital Signs: Vital Signs Temperature 99.1 F 02/25/16 06:00 Pulse Rate 100 H 02/25/16 06:00 Respiratory Rate 20 02/25/16 06:00 Blood Pressure 131/70 02/25/16 06:00 O2 Sat by Pulse Oximetry (%) 98 02/25/16 04:00 Cardiovascular: Yes: S1, S2 Respiratory: Yes: Regular, CTA Bilaterally Gastrointestinal: Yes: Normal Bowel Sounds, Soft Edema: Yes Integumentary: Yes: Erythema, Venous Stasis Changes Labs: INR, PTT INR 1.11 (0.82-1.09) 02/22/16 08:16 Problem List - Problems (1) Contusion, hip Assessment/Plan: PT MONITOR CT NO FX Code(s): S70.00XA - CONTUSION OF UNSPECIFIED HIP, INITIAL ENCOUNTER Qualifiers : Encounter type: initial encounter Laterality: left Qualified Code(s ): S70.02XA - Contusion of left hip, initial encounter (2) Diabetes Assessment/Plan: BGM Code(s): E11.9 - TYPE 2 DIABETES MELLITUS WITHOUT COMPLICATIONS Qualifiers: Diabetes mellitus type: type 2 (3) HTN (hypertension) Assessment/Plan: MONITOR STABLE Vital Signs Period Temp Pulse Resp BP Sys/Garcia Pulse Ox Last 24 Hr 98.2 F-99.6 F 86-98 20-20 100-141/49-80 98 Code(s): I10 - ESSENTIAL (PRIMARY) HYPERTENSION (4) Restless leg syndrome Assessment/Plan: PER NEURO Code(s): G25.81 - RESTLESS LEGS SYNDROME (5) Anemia Assessment/Plan: W/U ORDERED FOLLOW CBC Code(s): D64.9 - ANEMIA, UNSPECIFIED (6) Syncope Assessment/Plan: POSSIBLE--VS FALL?? W/U IN PROGRESS CARDIO Code(s): R55 - SYNCOPE AND COLLAPSE (7) Edema Assessment/Plan: ON DIURETICS ID CONSULT__POSSIBLE CELLULITIS Code(s): R60.9 - EDEMA, UNSPECIFIED (8) Aortic stenosis Assessment/Plan: CARDIO Code(s): I35.0 - NONRHEUMATIC AORTIC (VALVE) STENOSIS (9) Cellulitis Assessment/Plan: IV ABX PER ID Code(s): L03.90 - CELLULITIS, UNSPECIFIED
--- NOTE | 2016-02-25 14:22 | PN ---
Progress Note, Physician History of Present Illness: No new complaints, except for knee pain - Current Medication List Current Medications: Active Medications Acetaminophen (Tylenol -) 325 mg PO HS [facility] Last Admin: 02/24/16 21:58 Dose: 325 mg Escitalopram Oxalate (Lexapro -) 10 mg PO DAILY [facility] Last Admin: 02/25/16 09:49 Dose: 10 mg Furosemide (Lasix -) 40 mg PO DAILY [facility] Last Admin: 02/25/16 09:48 Dose: 40 mg Heparin Sodium (Porcine) (Heparin -) 5,000 unit SQ BID [facility] Last Admin: 02/25/16 09:49 Dose: 5,000 unit Vancomycin HCl (Vancomycin (Pre-Docked)) 250 mls @ 166.667 mls/hr IVPB BID@0400 ,1600 [facility] Last Admin: 02/25/16 03:38 Dose: 166.667 mls/hr Insulin Aspart (Novolog Vial Sliding Scale -) 1 vial SQ ACHS [facility] PRN Reason: Protocol Last Admin: 02/25/16 11:44 Dose: Not Given Lisinopril (Prinivil) 10 mg PO DAILY [facility] Last Admin: 02/25/16 09:49 Dose: 10 mg Metformin HCl (Glucophage -) 500 mg PO ACBK [facility] Last Admin: 02/25/16 06:10 Dose: 500 mg Multi-Ingredient Lotion (Eucerin (Large Jar) -) 1 applic TP BID PRN PRN Reason: DRY SKIN Oxycodone HCl (Roxicodone -) 5 mg PO HS [facility] Last Admin: 02/24/16 21:57 Dose: 5 mg Pramipexole Dihydrochloride (Mirapex -) 0.25 mg PO TID [facility] Last Admin: 02/25/16 06:10 Dose: 0.25 mg Zinc Acetate/Diphenhydramine (Benadryl 2% Cream) 1 applic TP TID [facility] Last Admin: 02/25/16 06:10 Dose: 1 applic - Objective Vital Signs: Vital Signs Temperature 97.4 F L 02/25/16 10:00 Pulse Rate 94 H 02/25/16 10:00 Respiratory Rate 20 02/25/16 10:00 Blood Pressure 110/74 02/25/16 12:00 O2 Sat by Pulse Oximetry (%) 98 02/25/16 04:00 Constitutional: Yes: No Distress, Obese Eyes: Yes: Conjunctiva Clear HENT: Yes: Atraumatic Neck: Yes: Supple Cardiovascular: Yes: Regular Rate and Rhythm, Murmur (at base) Respiratory: Yes: CTA Bilaterally Gastrointestinal: Yes: Normal Bowel Sounds, Abdomen, Obese. No: Tenderness Extremities: Yes: Other (lymphedema) Edema: Yes Peripheral Pulses WNL: Yes Neurological: Yes: Alert, Oriented Psychiatric: Yes: Alert, Oriented Labs: INR, PTT INR 1.11 (0.82-1.09) 02/22/16 08:16 Assessment/Plan 65 yo obese female, with the above history, here with a fall. She denies LOC, though it is possible that she may have fallen asleep. She remembers not feeling right, before she feel. No evidence of ACS or CHF ? orthostasis, which pramiprexole can cause -. ordered, but not yet done Mild on echo (known to pt ) -> would not cause symptoms at that level. Orthostatics were negative Pt w/o new complaints Rec: No other cardiac testing warranted Continue current meds Pamiprexole being tapered by Dr Loyd Consider oupt lymphedema therapy Pt to follow with regular investigative agent after d/c Thanks! We'll see prn!
--- NOTE | 2016-02-25 18:40 | PN ---
Progress Note, Physician History of Present Illness: No c/o leg pain Reports significant improvement in LE erythema No c/o fever/chills - Current Medication List Current Medications: Active Medications Acetaminophen (Tylenol -) 325 mg PO HS [facility] Last Admin: 02/24/16 21:58 Dose: 325 mg Escitalopram Oxalate (Lexapro -) 10 mg PO DAILY [facility] Last Admin: 02/25/16 09:49 Dose: 10 mg Furosemide (Lasix -) 40 mg PO DAILY [facility] Last Admin: 02/25/16 09:48 Dose: 40 mg Heparin Sodium (Porcine) (Heparin -) 5,000 unit SQ BID [facility] Last Admin: 02/25/16 09:49 Dose: 5,000 unit Vancomycin HCl (Vancomycin (Pre-Docked)) 250 mls @ 166.667 mls/hr IVPB BID@0400 ,1600 [facility] Last Admin: 02/25/16 16:48 Dose: 166.667 mls/hr Insulin Aspart (Novolog Vial Sliding Scale -) 1 vial SQ ACHS [facility] PRN Reason: Protocol Last Admin: 02/25/16 16:47 Dose: Not Given Lisinopril (Prinivil) 10 mg PO DAILY [facility] Last Admin: 02/25/16 09:49 Dose: 10 mg Metformin HCl (Glucophage -) 500 mg PO ACBK [facility] Last Admin: 02/25/16 06:10 Dose: 500 mg Multi-Ingredient Lotion (Eucerin (Large Jar) -) 1 applic TP BID PRN PRN Reason: DRY SKIN Oxycodone HCl (Roxicodone -) 5 mg PO HS [facility] Last Admin: 02/24/16 21:57 Dose: 5 mg Pramipexole Dihydrochloride (Mirapex -) 0.25 mg PO TID [facility] Last Admin: 02/25/16 14:55 Dose: 0.25 mg Zinc Acetate/Diphenhydramine (Benadryl 2% Cream) 1 applic TP TID [facility] Last Admin: 02/25/16 14:55 Dose: 1 applic - Objective Vital Signs: Vital Signs Temperature 99.0 F 02/25/16 17:46 Pulse Rate 91 H 02/25/16 17:46 Respiratory Rate 18 02/25/16 17:46 Blood Pressure 138/86 02/25/16 17:46 O2 Sat by Pulse Oximetry (%) 98 02/25/16 04:00 Constitutional: Yes: No Distress Eyes: Yes: Conjunctiva Clear Cardiovascular: Yes: Regular Rate and Rhythm, S1, S2 Respiratory: Yes: CTA Bilaterally Gastrointestinal: Yes: Normal Bowel Sounds, Soft Extremities: Yes: Other (decreased bilateral LE erythema, swelling) Labs: INR, PTT INR 1.11 (0.82-1.09) 02/22/16 08:16 Assessment/Plan Bilateral LE cellulitis- improved PCN allergy Continue vancomycin, elevation
[2016-02-25] MEDS: ACETAMINOPHEN 325 MG TABLET (FP) PO SCH (21:47)
[2016-02-25] MEDS: oxyCODONE HCL 5 MG TABLET PO SCH (21:47)
[2016-02-26] MEDS: VANCOMYCIN 1 GRAM (PRE-DOCKED) 250 ML IVPB SCH (04:46)
[2016-02-26] MEDS ORDERED: PT OWN MED DRAWER 7, Y5N ONE (06:17)
[2016-02-26] MEDS: metFORMIN HCL 500 MG TABLET (FP) PO SCH (06:34)
[2016-02-26] MEDS: PRAMIPEXOLE DIHYDROCHLORIDE 0.25 MG TABLET PO SCH (06:34)
[2016-02-26] MEDS: INSULIN SLIDING SCALE (NOVOLOG) 1 VIAL SQ SCH ×2 (06:34→11:20)
--- NOTE | 2016-02-26 09:39 | PN ---
Progress Note, Physician History of Present Illness: C/O bilateral knee pain No c/o leg pain No fever/ chills Tolerating antibiotics - Current Medication List Current Medications: Active Medications Acetaminophen (Tylenol -) 325 mg PO HS [facility] Last Admin: 02/25/16 21:47 Dose: 325 mg Escitalopram Oxalate (Lexapro -) 10 mg PO DAILY [facility] Last Admin: 02/25/16 09:49 Dose: 10 mg Furosemide (Lasix -) 40 mg PO DAILY [facility] Last Admin: 02/25/16 09:48 Dose: 40 mg Heparin Sodium (Porcine) (Heparin -) 5,000 unit SQ BID [facility] Last Admin: 02/25/16 21:47 Dose: 5,000 unit Vancomycin HCl (Vancomycin (Pre-Docked)) 250 mls @ 166.667 mls/hr IVPB BID@0400 ,1600 [facility] Last Admin: 02/26/16 04:46 Dose: 166.667 mls/hr Insulin Aspart (Novolog Vial Sliding Scale -) 1 vial SQ ACHS [facility] PRN Reason: Protocol Last Admin: 02/26/16 06:34 Dose: Not Given Lisinopril (Prinivil) 10 mg PO DAILY [facility] Last Admin: 02/25/16 09:49 Dose: 10 mg Metformin HCl (Glucophage -) 500 mg PO ACBK [facility] Last Admin: 02/26/16 06:34 Dose: 500 mg Multi-Ingredient Lotion (Eucerin (Large Jar) -) 1 applic TP BID PRN PRN Reason: DRY SKIN Oxycodone HCl (Roxicodone -) 5 mg PO [facility] Last Admin: 02/25/16 21:47 Dose: 5 mg Pramipexole Dihydrochloride (Mirapex -) 0.25 mg PO TID [facility] Last Admin: 02/26/16 06:34 Dose: 0.25 mg Zinc Acetate/Diphenhydramine (Benadryl 2% Cream) 1 applic TP TID [facility] Last Admin: 02/26/16 06:34 Dose: Not Given - Objective Vital Signs: Vital Signs Temperature 98 F 02/26/16 05:38 Pulse Rate 94 H 02/26/16 05:38 Respiratory Rate 20 02/26/16 05:38 Blood Pressure 130/62 02/26/16 05:38 O2 Sat by Pulse Oximetry (%) 98 02/25/16 04:00 Constitutional: Yes: No Distress, Obese Eyes: Yes: Conjunctiva Clear Cardiovascular: Yes: Regular Rate and Rhythm, S1, S2 Respiratory: Yes: CTA Bilaterally Gastrointestinal: Yes: Normal Bowel Sounds, Soft. No: Tenderness Extremities: Yes: Other (+ bilateral LE edema Erythema resolved + chronic venous stasis dermatitis) Labs: INR, PTT INR 1.11 (0.82-1.09) 02/22/16 08:16 Assessment/Plan Bilateral LE cellulitis- resolved PCN allergy Discontinue vancomycin after this morning's dose, observe off antibiotics
[2016-02-26] MEDS: FUROSEMIDE 40 MG TABLET (FP) PO SCH (09:53)
[2016-02-26] MEDS: HEPARIN NA (PORCINE) 5,000 UNITS/ML 1ML VIAL SQ SCH (09:53)
[2016-02-26] MEDS: LISINOPRIL 10 MG TABLET (FP) PO SCH (09:53)
[2016-02-26] MEDS: ESCITALOPRAM OXALATE 10 MG TABLET (FP) PO SCH (09:53)
[2016-02-26] MEDS ORDERED: ACETAMINOPHEN 325 MG TABLET (FP) PO ONE (10:00)
--- NOTE | 2016-02-26 12:20 | DS ---
Physical Examination Vital Signs: Vital Signs Temperature 100.5 F H 02/26/16 09:00 Pulse Rate 94 H 02/26/16 10:00 Respiratory Rate 20 02/26/16 09:00 Blood Pressure 104/58 02/26/16 10:00 O2 Sat by Pulse Oximetry (%) 98 02/25/16 04:00 Constitutional: Yes: Calm Neck: Yes: Trachea Midline Cardiovascular: Yes: Regular Rate and Rhythm, S1, S2 Respiratory: Yes: CTA Bilaterally Gastrointestinal: Yes: Normal Bowel Sounds, Soft Extremities: Yes: Other (lymphedema) Edema: LLE: 2+, RLE: 2+ Neurological: Yes: Alert, Oriented Discharge Summary Reason For Visit: INTRACTABLE PAIN,HIP CONTUSION Current Active Problems Anemia (Acute) Aortic stenosis (Acute) Cellulitis (Acute) Contusion, hip (Acute) Diabetes (Acute) Edema (Acute) HTN (hypertension) (Acute) Intractable pain (Acute) Restless leg syndrome (Acute) Syncope (Acute) Hospital Course: - Admission Chief Complaint: s/p fall History of Present Illness: Patient is a 65 year old female with a PMHx of HTN, DM, Dermatitis with lymphedema, restless leg syndrome, fibromyalgia who presents to the ED s/p fall after feeling lightheaded this morning landing on her left hip. Patient reports she took benadryl this morning which caused her to be drowsy and lightheaded. Patient states she did hit her head when she fell and is having severe left hip and thigh pain, which prompted this ED visit. Patient denies urinary or bowel incontinence. She denies chest pain, palpitations, shortness of breath She denies fever, chills, nausea, vomiting She denies seizures, dizziness, headaches, loss of consciousness, acute visual changes PMHx: HTN, DM, Dermatitis with lymphedema, restless leg syndrome, fibromyalgia PSHx: Hysterectomy MEDS: Refer to ambulatory Allergies: Penicillins and Sulfa Social: Denies alcohol, drugs, and smoking PCP: Not on staff per patient she went downstairs to eat cookie and then didnot feel good and got up top call her then next thing she remeber was falling she has been feeling lighteaded and uncoordinated in last few days and has been dropping things whatever she picks up she drops, per patient she has been taking benadryl for her itchy legs for a long time and uses eucerin cream per patient she feels unsteady on her feet PT eval done - needs VNS with home PT leg cellultis: vancomycin was given now improved and stopped seen by neurolyoshi mirapex dose now bid ( am and lunch and night dose increased to 0.5mg HS) - Instructions Diet, Activity, Other Instructions: FU with pmd in one week VNS and home PT Referrals: Gurmeet Loyd MD [Primary Care Provider] - Disposition: VNS/HOME HEALTH CARE - Home Medications Comprehensive Discharge Medication List: Ambulatory Orders Escitalopram Oxalate [Lexapro -] 10 mg PO DAILY 02/22/16 Furosemide [Lasix] 40 mg PO DAILY 02/22/16 Lisinopril [Prinivil] 10 mg PO DAILY 02/22/16 Metformin HCl [Glucophage] 500 mg PO DAILY 02/22/16 Oxycodone HCl/Acetaminophen [Percocet 5-325 mg Tablet] 1 - 2 tab PO HS 02/22/16 Pramipexole Di-HCl [Mirapex] 0.25 mg PO TID 02/22/16
[2016-02-26 15:09] VITALS: BP 135/44; PULSE 87; TEMP 98.4
[2016-02-26] MEDS ORDERED: PRAMIPEXOLE DIHYDROCHLORIDE 0.5 MG TABLET PO SCH (20:00)
[2016-02-27] MEDS ORDERED: PRAMIPEXOLE DIHYDROCHLORIDE 0.25 MG TABLET PO SCH (12:45)
[2016-02-29 13:16] LABS: SERUM IRON 44; TOTAL IRON BINDING CAPACITY 289; UIBC 245
== END 2016-02-26 15:49 | disposition home or self-care (01) | DRG 605 ==
LOC: JER 07:26 → JERBED 12:43 → J6S 22:14 → OBSVTOIN 02-25 08:53
PROVIDERS: ADMIT Family Medicine; ATTEND Family Medicine
DX: S70.02XA Contusion of left hip, initial encounter (principal); Z68.43 Body mass index [BMI] 50.0-59.9, adult; L03.116 Cellulitis of left lower limb; L03.115 Cellulitis of right lower limb; W18.39XA Other fall on same level, initial encounter; Y93.89 Activity, other specified; Y92.098 Other place in other non-institutional residence as the place of occurrence of the external cause; I10 Essential (primary) hypertension; G25.81 Restless legs syndrome; E66.01 Morbid (severe) obesity due to excess calories; Z71.3 Dietary counseling and surveillance; L81.8 Other specified disorders of pigmentation; E11.40 Type 2 diabetes mellitus with diabetic neuropathy, unspecified; R55 Syncope and collapse; I35.0 Nonrheumatic aortic (valve) stenosis; R60.9 Edema, unspecified; M79.7 Fibromyalgia; E78.5 Hyperlipidemia, unspecified; Z88.0 Allergy status to penicillin
CPT/HCPCS: 36415; 70450-TC; 71010-TC; 72192-TC; 73523-TC; 73700-TC-RT; 80053; 80061; 82550; 82553; 82607; 82728; 83036; 83540; 83550; 83721; 84484; 85025; 85027; 85610; 85651; 85730; 86038; 86140; 86850; 86900; 86901; 87040; 93005; 93010; 93306-TC; 93880-TC; 97116-GP; 97162-PG; 99283-25; G0378; J1644

== ENCOUNTER 2017-08-13 13:11 | Inpatient (IN) | payer OTHER, MEDICARE ==
[2017-08-13] MEDS ORDERED: morphine CARPU-JECT 4 MG/1 ML DISP.SYRIN IVPUSH ONE ×3 (13:33→17:43)
[2017-08-13] MEDS ORDERED: morphine SULFATE 4 MG/ML VIAL ONE ×3 (13:36→17:44)
--- NOTE | 2017-08-13 13:49 | PDOC ---
History of Present Illness - General Chief Complaint: Pain Stated Complaint: RT LOWER LEG PAIN Time Seen by Provider: 08/13/17 13:22 History Source: Patient Exam Limitations: No Limitations - History of Present Illness Initial Comments: 08/13/17 13:38 The patient is a 67F with a PMH of HTN, DM, Dermatitis with lymphedema, restless leg syndrome, fibromyalgia who presents to the ER with complaints of abdominal pain. The patient states that her pain started around midnight, gradual onset, sharp in nature, 8.5/10 which initially started periumbilical and now radiates to her RLQ and radiates "somewhat" to her R flank. She denies fever, chills, vomiting, but admits to nausea, diarrhea, and pain when bearing down. She tried taking an oxycodone without any avail. Past History - Past Medical History Allergies/Adverse Reactions: Allergies Allergy/AdvReac Type Severity Reaction Status Date / Time Penicillins Allergy Verified 08/13/17 13:21 Sulfa (Sulfonamide Allergy Verified 08/13/17 13:21 Antibiotics) Home Medications: Ambulatory Orders Escitalopram Oxalate [Lexapro -] 10 mg PO DAILY 02/22/16 Furosemide [Lasix] 40 mg PO DAILY 02/22/16 Lisinopril [Prinivil] 10 mg PO DAILY 02/22/16 Oxycodone HCl/Acetaminophen [Percocet 5-325 mg Tablet] 1 - 2 tab PO HS 02/22/16 Pramipexole Dihydrochloride [Mirapex -] 0.375 mg PO BID 08/13/17 Pramipexole Dihydrochloride [Mirapex -] 1.5 mg PO HS 08/13/17 COPD: No Diabetes: Yes HTN: Yes Psychiatric Problems: Yes - Surgical History Abdominal Surgery: Yes Orthopedic Surgery: Yes (ramirez rotater cuff sx) - Immunization History Immunization Up to Date: Yes - Suicide/Smoking/Psychosocial Hx Smoking History: Never smoked Have you smoked in the past 12 months: No Hx Alcohol Use: No Drug/Substance Use Hx: No Substance Use Type: None Hx Substance Use Treatment: No Review of Systems - Review of Systems Able to Perform ROS?: Yes Comments:: 08/13/17 13:41 GENERAL/CONSTITUTIONAL: No fever or chills. No weakness. HEAD, EYES, EARS, NOSE AND THROAT: No change in vision. No ear pain or discharge. No sore throat. CARDIOVASCULAR: No chest pain, palpitations, or lightheadedness. RESPIRATORY: No cough, wheezing, shortness of breath, or hemoptysis. GASTROINTESTINAL: Positive for nausea, diarrhea, and abdominal. No vomiting or constipation. GENITOURINARY: No dysuria, frequency, hematuria, or change in urination. MUSCULOSKELETAL: No joint or muscle swelling or pain. No neck or back pain. SKIN: No rash or lesions. NEUROLOGIC: No headache, numbness, tingling, weakness, loss of consciousness, or change in strength/sensation. ENDOCRINE: No increased thirst. No abnormal weight change. HEMATOLOGIC/LYMPHATIC: No anemia, easy bleeding, or history of blood clots. ALLERGIC/IMMUNOLOGIC: No hives or skin allergy. Is the patient limited Arabic proficient: No *Physical Exam - Vital Signs Last Vital Signs Temp Pulse Resp BP Pulse Ox 98.5 F 72 16 157/76 99 08/13/17 13:11 08/13/17 13:11 08/13/17 13:11 08/13/17 13:11 08/13/17 13:11 - Physical Exam Comments: 08/13/17 13:49 GENERAL: Well developed, well nourished. Awake and alert. No acute distress. HEENT: Normocephalic, atraumatic. Hearing grossly normal. Moist mucous membranes. PERRLA, EOMI. No conjunctival pallor. Sclera are non-icteric. NECK: Supple. Full ROM. No JVD. CARDIOVASCULAR: Regular rate and rhythm. 2+ systolic murmur on L parasternal border. PULMONARY: No evidence of respiratory distress. Lungs clear to auscultation bilaterally. No wheezing, rales or rhonchi. ABDOMINAL: Soft. TTP over RLQ with guarding. Erythematous non-blanching rash in intertrigenous area. Non-distended. GENITOURINARY: No CVA tenderness bilaterally. MUSCULOSKELETAL: Normal range of motion at all joints. No bony deformities or tenderness. EXTREMITIES: No cyanosis. No clubbing. 2+ edema in b/l LE with erythematous lymphadema, nondraining. No calf tenderness. SKIN: Warm and dry. Normal capillary refill. No rashes. No jaundice. NEUROLOGICAL: Alert, awake, appropriate. Cranial nerves 2-12 intact. Normal speech. Gait is normal without ataxia. PSYCHIATRIC: Cooperative. Good eye contact. Appropriate mood and affect. ED Treatment Course - LABORATORY CBC & Chemistry Diagram: 08/13/17 13:34 08/13/17 13:34 - RADIOLOGY Radiology Studies Ordered: Category Date Time Status ABDOMEN & PELVIS CT WITH CONTR [CT] Stat CT Scan 08/13/17 13:34 Ordered Medical Decision Making - Medical Decision Making 08/13/17 13:54 The patient is a 67F with a PMH of HTN and DM who presents to the ER with RLQ pain. I am concerned for appendicitis as her history makes me suspicious. Pending labs and CTAP w/ IV contrast. Pt will be NPO until after results return. Treating pain w/ morphine. 08/13/17 19:51 CTAP indicates possible early acute appendicitis. Case d/w Dr. Hitchcock, surgery, who agrees with plan to keep pt in hospital and possibly operate tomorrow morning. I have endorsed the pt to Dr. Laguna for admission. Will give pt her home dose of pramipexole. *DC/Admit/Observation/Transfer Diagnosis at time of Disposition: Appendicitis Qualifiers: Appendicitis type: unspecified Qualified Code(s): K37 - Unspecified appendicitis - Discharge Dispostion Condition at time of disposition: Stable Decision to Admit order: Yes - Referrals - Patient Instructions - Post Discharge Activity
[2017-08-13 13:51] LABS: BASO % 0.6 % (0-2.0); EOS % 1.9 % (0-4.5); HEMATOCRIT 37.5 % (32.4-45.2); HEMOGLOBIN 12.3 GM/dL (10.7-15.3); LYMPH % 13.7 % (8-40); MCH 26.2 pg (25.7-33.7); MCHC 32.7 g/dl (32.0-36.0); MEAN PLT VOLUME 9.4 fl (7.5-11.1); MONO % 3.1 % (3.8-10.2); NEUT % 80.7 % (42.8-82.8); PLATELET COUNT 226 K/MM3 (134-434); RBC 4.68 M/mm3 (3.60-5.2); RDW 14.9 % (11.6-15.6); WHITE BLOOD COUNT 9.9 K/mm3 (4.0-10.0)
[2017-08-13 14:08] LABS: PROTHROMBIN TIME (PATIENT) 11.3 SEC (9.7-13.0)
[2017-08-13 14:11] LABS: ACTIVATED PTT 35.6 SECONDS (25.2-36.5)
[2017-08-13 14:18] LABS: ALBUMIN 3.2 g/dl (3.4-5.0); ANION GAP 9 (8-16); BILIRUBIN,TOTAL 0.4 mg/dL (0.2-1.0); BLOOD UREA NITROGEN 16 mg/dL (7-18); CALCIUM 8.8 mg/dL (8.5-10.1); CHLORIDE 103 mmol/L (98-107); CO2 27 mmol/L (21-32); CREATININE 0.9 mg/dL (0.55-1.02); GLUCOSE,RANDOM 120 mg/dL (74-106); LIPASE 46 U/L (73-393); POTASSIUM 4.1 mmol/L (3.5-5.1); SGOT/AST 11 U/L (15-37); SGPT/ALT 16 U/L (12-78); SODIUM 139 mmol/L (136-145)
[2017-08-13 14:19] LABS: ALK PHOS 79 U/L (45-117)
[2017-08-13 14:49] LABS: URINE APPEARANCE CLEAR; URINE BILIRUBIN NEGATIVE (<2.0 mg/dL); URINE COLOR STRAW; URINE GLUCOSE (UA) NEGATIVE (NEGATIVE); URINE KETONE NEGATIVE (NEGATIVE); URINE LEUK ESTERASE TRACE (NEGATIVE); URINE NITRITE NEGATIVE (NEGATIVE); URINE PROTEIN NEGATIVE (NEGATIVE); URINE UROBILINOGEN NEGATIVE mg/dL (0.2-1.0)
[2017-08-13 14:55] LABS: EPI CELLS FEW /HPF (FEW)
--- NOTE | 2017-08-13 14:59 | PDOC ---
Attending Attestation - Resident Resident Name: Euolgio White - ED Attending Attestation I have performed the following: I have examined & evaluated the patient, The case was reviewed & discussed with the resident, I agree w/resident's findings & plan, Exceptions are as noted - HPI HPI: 08/13/17 14:56 "The patient is a 67-year-old female, with a past medical history of HTN, DM, Dermatitis with lymphedema, restless leg syndrome, and fibromyalgia, who presents to the ED with right lower quadrant pain today. Pt states that she awoke at midnight with the pain. She endorses diarrhea but no vomiting. Denies F /C. The patient describes the pain as constant, stabbing in sensation, non- radiating, exacerbated when bearing down, with no alleviating factors. She reports taking a dose of oxycodone which she takes for her restless leg syndrome with no alleviation of her symptoms. Denies any chest pain or shortness of breath. Denies any dysuria, frequency, urgency, or hesitancy. Allergies: Penicillins and Sulfa Past Surgical History: Hysterectomy Past Social History: Denies alcohol, drugs, and smoking PCP: Dr. Loyd " - Physicial Exam PE: 08/13/17 14:58 "GENERAL: Awake, alert, and fully oriented, in no acute distress. HEAD: No signs of trauma EYES: PERRLA, EOMI, sclera anicteric, conjunctiva clear ENT: Auricles normal inspection, hearing grossly normal, nares patent, oropharynx clear without exudates. Moist mucosa NECK: Nontender, no stepoffs, Normal ROM, supple, no lymphadenopathy, JVD, or masses LUNGS: Breath sounds equal, clear to auscultation bilaterally. No wheezes, and no crackles HEART: Regular rate and rhythm, normal S1 and S2, no murmurs, rubs or gallops ABDOMEN: + RLQ tenderness, normoactive bowel sounds. No guarding, no rebound. No masses EXTREMITIES: Normal range of motion, no edema. No clubbing or cyanosis. No cords, erythema, or tenderness NEUROLOGICAL: Cranial nerves II through XII intact. 5/5 strength and sensation in all extremities, Normal speech, normal gait, normal cerebellar function SKIN: Warm, Dry, normal turgor, no rashes or lesions noted. " - Medical Decision Making 08/13/17 14:58 67 F with RLQ pain x 1 day. Concerning for acute appy. - Labs, UA - CTAP - Morphine 08/13/17 18:[address] shows 1cm appendix with no periappendiceal inflammatory changes, but early appy cannot be excluded. Dr. Hitchcock consulted for evaluation of possible appendicitis.
[2017-08-13] MEDS ORDERED: CEFTRIAXONE 1 GM in DEXTROSE 5%-WATER - 100 ML IVPB ONE (18:56)
[2017-08-13] MEDS ORDERED: SODIUM CHLORIDE 0.9% 1000 ML INFUS.BAG IV ONE (18:57)
[2017-08-13] MEDS ORDERED: CEFTRIAXONE 1 GM/50 ML BAG ONE (19:02)
--- NOTE | 2017-08-13 19:36 | CONSULT ---
Consult Consult Specialty:: general surgery Reason for Consultation:: abdominal pain - History of Present Illness Chief Complaint: abdominal pain History of Present Illness: 67yo female PMH HTN, DM, Dermatitis with lymphedema, restless leg syndrome, fibromyalgia who presents to the ER with complaints of abdominal pain. The patient states that her pain started around midnight, gradual onset, sharp in nature, 8.5/10 which initially started periumbilical and now radiates to her RLQ and radiates "somewhat" to her Right flank. She denies fever, chills, vomiting, but admits to nausea, diarrhea, and pain when bearing down. She tried taking an oxycodone without any improvement. She reports a previous episode of acute appendicitis in 1968. We were asked to assess after CT scan reading. - Past Medical History Cardio/Vascular: Yes: Aortic Stenosis (followe dby Dr Angel Isaac), HTN, Hyperlipdemia, Other (edema/lymohedema -. lasix bid) Musculoskeletal: Yes: Other (dermatitis) Rheumatology: Yes: Fibromyalgia Endocrine: Yes: Diabetes Mellitus - Past Surgical History Past Surgical History: Yes: , Hysterectomy - Alcohol/Substance Use Hx Alcohol Use: No - Smoking History Smoking history: Never smoked Have you smoked in the past 12 months: No - Social History Usual Living Arrangement: With Spouse Home Medications - Allergies Allergies/Adverse Reactions: Allergies Allergy/AdvReac Type Severity Reaction Status Date / Time Penicillins Allergy Verified 08/13/17 13:21 Sulfa (Sulfonamide Allergy Verified 08/13/17 13:21 Antibiotics) - Home Medications Home Medications: Ambulatory Orders Escitalopram Oxalate [Lexapro -] 10 mg PO DAILY 02/22/16 Furosemide [Lasix] 40 mg PO DAILY 02/22/16 Lisinopril [Prinivil] 10 mg PO DAILY 02/22/16 Oxycodone HCl/Acetaminophen [Percocet 5-325 mg Tablet] 1 - 2 tab PO HS 02/22/16 Pramipexole Dihydrochloride [Mirapex -] 0.375 mg PO BID 08/13/17 Pramipexole Dihydrochloride [Mirapex -] 1.5 mg PO HS 08/13/17 Review of Systems - Review of Systems Constitutional: denies: Chills, Fever Eyes: denies: Blurred Vision, Recent Change in Vision HENT: denies: Difficult Swallowing, Throat Pain Neck: denies: Swollen Glands, Tenderness Cardiovascular: denies: Chest Pain, Edema Respiratory: denies: Cough, SOB Gastrointestinal: reports: Abdominal Pain. denies: Nausea, Rectal Bleeding Genitourinary: denies: Discharge, Dysuria Breasts: reports: No Symptoms Reported. denies: Pain Musculoskeletal: denies: Muscle Pain, Muscle Weakness Integumentary: denies: Lesions, Lump Neurological: denies: Seizure, Syncope Endocrine: denies: Unexplained Weight Gain, Unexplained Weight Loss Hematology/Lymphatic: denies: Easily Bruised, Excessive Bleeding Psychiatric: denies: Anxiety, Depression Physical Exam Vital Signs: Vital Signs Temperature 98.3 F 08/13/17 17:36 Pulse Rate 71 08/13/17 17:36 Respiratory Rate 18 08/13/17 17:36 Blood Pressure 117/53 08/13/17 17:36 O2 Sat by Pulse Oximetry (%) 99 08/13/17 17:36 Vital Signs Period Temp Pulse Resp BP Sys/Garcia Pulse Ox Last 24 Hr 98.3 F-98.5 F 71-72 16-18 117-157/53-76 99-99 Constitutional: Yes: Well Nourished, No Distress, Calm Eyes: Yes: Conjunctiva Clear, EOM Intact HENT: Yes: Atraumatic, Normocephalic Neck: Yes: Supple, Trachea Midline Cardiovascular: Yes: Regular Rate and Rhythm, S1, S2 Respiratory: Yes: Regular, CTA Bilaterally Gastrointestinal: Yes: Normal Bowel Sounds, Soft, Abdomen, Obese, Tenderness ( RLQ tenderness). No: Ascites, Distention, Hernia ...Rectal Exam: Yes: Sphincter Tone Normal. No: Mass Renal/: No: CVA Tenderness - Left, CVA Tenderness - Right Musculoskeletal: No: Muscle Pain, Muscle Weakness Extremities: No: Cool, Cyanosis Edema: No Peripheral Pulses WNL: Yes Integumentary: No: Jaundice, Rash Neurological: Yes: Alert, Oriented Psychiatric: Yes: Alert, Oriented Labs: CBC, BMP 08/13/17 13:34 08/13/17 13:34 Imaging - Results Cat Scan: Report Reviewed, Image Reviewed (Prominent appendix cannot exclude appendicitis) Problem List - Problems (1) Appendicitis Assessment/Plan: 67 yo female MMP with 1 day of abdominal pain, CTscan read as can not exclude appendicitis NPO and IVF hydration empiric IV antibiotics Analgesia Repeat labs Medical Clearance Reevaluation in AM Possible OR for Laparoscopic appendectomy Thank you for the opportunity to participate in the care of this patient. Code(s): K37 - UNSPECIFIED APPENDICITIS Qualifiers: Appendicitis type: unspecified Qualified Code(s): K37 - Unspecified appendicitis (2) Abdominal pain in female patient Code(s): R10.9 - UNSPECIFIED ABDOMINAL PAIN (3) Anemia Code(s): D64.9 - ANEMIA, UNSPECIFIED (4) Aortic stenosis Code(s): I35.0 - NONRHEUMATIC AORTIC (VALVE) STENOSIS (5) Diabetes Code(s): E11.9 - TYPE 2 DIABETES MELLITUS WITHOUT COMPLICATIONS Qualifiers: Diabetes mellitus type: type 2 (6) HTN (hypertension) Code(s): I10 - ESSENTIAL (PRIMARY) HYPERTENSION
--- NOTE | 2017-08-13 20:33 | PN ---
Teaching Attending Note Name of Resident: Isaias Hunt ATTENDING PHYSICIAN STATEMENT I saw and evaluated the patient. I reviewed the resident's note and discussed the case with the resident. I agree with the resident's findings and plan as documented. SUBJECTIVE: Patient is a 67 year old woman with a history of HTN, DM, bilateral rotator cuff surgery, penicillin and sulfa allergy, Dermatitis with lymphedema, restless leg syndrome, fibromyalgia who presents to the ER with complaints of abdominal pain for about 1 day. Her pain started around midnight, of gradual onset, sharp in nature, 8.5/10 and initially started periumblical but now radiates to her RLQ and also radiates "somewhat" to her R flank. She denies fever, chills, vomiting, but admits to nausea, diarrhea, and pain when bearing down. She took Oxycodone but got no relief. She has not had any more diarrhea since she arrived the hospital. OBJECTIVE: Obese and in pain Vital Signs Period Temp Pulse Resp BP Sys/Garcia Pulse Ox Last 24 Hr 98.3 F-98.5 F 71-72 16-18 117-157/53-76 99-99 HEENT: No Jaundice, eye redness or discharge, PERRLA, EOMI. Normocephalic, atraumatic. External ears are normal and hearing is grossly intact. No nasal discharge. Neck: Supple, nontender. No palpable adenopathy or thyromegaly. No JVD Chest: Good effort. Clear to auscultation and percussion. Heart: Regular. No S3 or rub; 3/6 KOREY Abdomen: Obese; pannus with erythema of abdominal skin folds; tender RLQ with palpable mass in skin fold in RLQ; not distended, soft, and no HSM. No rebound or guarding. Normoactive bowel sounds. Ext: Peripheral pulses intact. Chronic lymphedema with erythema and stasis dermatitis changes but nontender. Skin: Warm and dry. No petechiae, rash or ecchymosis. Neuro: Alert. Oriented x3. CN 2-12 grossly intact. Sensation grossly intact in all four extremities and DTR are symmetric. Home Medications Medication Instructions Recorded Escitalopram Oxalate [Lexapro -] 10 mg PO DAILY 02/22/16 Furosemide [Lasix] 40 mg PO DAILY 02/22/16 Lisinopril [Prinivil] 10 mg PO DAILY 02/22/16 Oxycodone HCl/Acetaminophen 1 - 2 tab PO HS 02/22/16 [Percocet 5-325 mg Tablet] Pramipexole Dihydrochloride 0.375 mg PO BID 08/13/17 [Mirapex -] Pramipexole Dihydrochloride 1.5 mg PO HS 08/13/17 [Mirapex -] Abnormal Lab Results 08/13/17 08/13/17 13:34 13:34 Monocytes % 3.1 L Random Glucose 120 H AST 11 L Albumin 3.2 L Lipase 46 L Current Medications Generic Name Dose Route Start Last Admin Trade Name Freq PRN Reason Stop Dose Admin Acetaminophen 650 mg 08/13/17 23:39 Tylenol - PO Q4H PRN PAIN LEVEL 4 - 6 Escitalopram Oxalate 10 mg 08/14/17 10:00 Lexapro - PO DAILY [facility] Furosemide 40 mg 08/14/17 10:00 Lasix - PO DAILY [facility] Heparin Sodium (Porcine) 5,000 unit 08/14/17 06:00 Heparin - SQ TID [facility] Sodium Chloride 1,000 mls @ 75 mls/hr 08/14/17 00:45 08/14/17 01:18 Normal Saline - IV 75 mls/hr ASDIR DEXTER Administration Metronidazole 500 mg in 100 mls @ 100 mls/hr 08/14/17 02:38 Flagyl 500mg Premixed Ivpb - IVPB 08/14/17 03:37 ONCE ONE Insulin Aspart 1 vial 08/14/17 07:00 Novolog Vial Sliding Scale - SQ ACHS DEXTER Protocol Morphine Sulfate 2 mg 08/14/17 00:40 08/14/17 01:13 Morphine Sulfate IVPUSH 2 mg Q4H PRN Administration PAIN LEVEL 6-10 Nystatin 1 applic 08/14/17 10:00 Nystop Powder - TP DAILY D[facility]TER Pramipexole Dihydrochloride 1.5 mg 08/14/17 22:00 Mirapex - PO HS [facility] [place] Pramipexole Dihydrochloride 0.375 mg 08/14/17 10:00 Mirapex - PO BID@1000,1800 [facility] ASSESSMENT AND PLAN: 1. Possible appendicitis - CT abdomen does not show any overt evidence of appendicitis but cannot rule out possible early appendicitis. She has been evaluated by surgery and may be taken to the OR tomorrow. There is no indication for antibiotics at this time. Will keep her NPO and give IV NS. She has a mass in the skin fold overlying the RLQ - may just be fatty tissue, but will get a sonogram of the RLQ to clarify. This is relevant because of the finding of intra-abdominal lymphadenopathy. Consult oncology. CT scan confirms absent uterus but makes no mention of the ovaries. Once full report of CT abdomen is available showing presence of ovaries, will consult [facility] since rupture of ovarian cysts may explain intense pain that is making her cry. Her EKG does not show any significant changes. 2. Abdominal skin fold fungal infection - Will treat with nystatin powder and keep skin folds dry. 3. DM - We will implement sliding scale insulin regimen. Provide comprehensive diabetes care with patient teaching and counseling about the importance of euglycemia, eye care and foot care. 4. Morbid Obesity - Provide compassionate counseling, motivation and all the necessary assistance to facilitate weight loss. Consult dental equipment mechanic. 5. DVT prophylaxis - Heparin 5000u sq tid. 6. Advance directives - Full code
--- NOTE | 2017-08-13 20:57 | HP ---
CHIEF COMPLAINT: right lower abdominal pain PCP: Dr. Marlo Sandhu ([facility]) HISTORY OF PRESENT ILLNESS: 67 y/o F w/ PMH of HTN, DM, b/l rotator cuff surgery, Dermatitis with lymphedema , restless leg syndrome, fibromyalgia p/w abdominal pain for about 1 day. Her pain started around midnight, of gradual onset, sharp in nature, 10/10 and initially started periumblical but now radiates to her RLQ and also radiates "somewhat" to her R flank. In addition, she reports having multiple episodes of watery diarrhea this morning that was lumpy, non bloody, with rank smell. She denies fever, chills, vomiting, CP, SOB palpataions, recent travel, sick contacts, changes in diet but admits to nausea and pain when bearing down. She took Oxycodone as well tea w/ phennel seeds but got no relief. She has not had any more diarrhea since she arrived the hospital. She reports having a somewhat similar episode in 1968 when she had RLQ pain that was dull ache and was told by doctor she had appendicitis but was not tx w/ anything. ER course was notable for: (1)flagyl 500mg. CTX 1g, morphine (2) (3) Recent Travel: none PAST MEDICAL HISTORY: -Aortic Stenosis, follows w/ cardio Dr. Angel Mccollum -PCP Dr. Marlo Sandhu ([facility]) -colitis w/ L sided pain during flare up w/ bloody diarrhea. 1st episode when teenager PAST SURGICAL HISTORY: -per pt Hx, full hysterectomy w/ ovary and tube removal, OBGYN Dr. Guillen b/l rotator cuff surgery -1 verticle Social History: Smoking: none Alcohol:none Drugs: none Family History: dad stroke 64yo Allergies Penicillins Allergy (Verified 08/13/17 13:21) Sulfa (Sulfonamide Antibiotics) Allergy (Verified 08/13/17 13:21) HOME MEDICATIONS: Home Medications Medication Instructions Recorded Escitalopram Oxalate [Lexapro -] 10 mg PO DAILY 02/22/16 Furosemide [Lasix] 40 mg PO DAILY 02/22/16 Lisinopril [Prinivil] 10 mg PO DAILY 02/22/16 Oxycodone HCl/Acetaminophen 1 - 2 tab PO HS 02/22/16 [Percocet 5-325 mg Tablet] Pramipexole Dihydrochloride 0.375 mg PO BID 08/13/17 [Mirapex -] Pramipexole Dihydrochloride 1.5 mg PO HS 08/13/17 [Mirapex -] REVIEW OF SYSTEMS CONSTITUTIONAL: Absent: fever, chills, diaphoresis, generalized weakness, malaise, loss of appetite, weight change HEENT: Absent: rhinorrhea, nasal congestion, throat pain, throat swelling, difficulty swallowing, mouth swelling, ear pain, eye pain, visual changes CARDIOVASCULAR: Absent: chest pain, syncope, palpitations, irregular heart rate, lightheadedness , peripheral edema RESPIRATORY: Absent: cough, shortness of breath, dyspnea with exertion, orthopnea, wheezing, stridor, hemoptysis GASTROINTESTINAL: + abdominal pain, nausea, diarrhea Absent: , abdominal distension, vomiting, constipation, melena, hematochezia GENITOURINARY: Absent: dysuria, frequency, urgency, hesitancy, hematuria, genital pain MUSCULOSKELETAL: Absent: myalgia, arthralgia, joint swelling, back pain, neck pain SKIN: Absent: rash, itching, pallor HEMATOLOGIC/IMMUNOLOGIC: Absent: easy bleeding, easy bruising, lymphadenopathy, frequent infections ENDOCRINE: Absent: unexplained weight gain, unexplained weight loss, heat intolerance, cold intolerance NEUROLOGIC: Absent: headache, focal weakness or paresthesias, dizziness, unsteady gait, seizure, mental status changes, bladder or bowel incontinence PSYCHIATRIC: Absent: anxiety, depression, suicidal or homicidal ideation, hallucinations. PHYSICAL EXAMINATION Vital Signs - 24 hr 08/13/17 08/13/17 08/13/17 13:11 17:36 19:35 Temperature 98.5 F 98.3 F Pulse Rate 72 Pulse Rate [ 71 Right] Respiratory 16 18 18 Rate Blood Pressure 157/76 Blood Pressure 117/53 [Right Arm] O2 Sat by Pulse 99 99 99 Oximetry (%) GENERAL: Awake, alert, and fully oriented, in acute distress. HEAD: NCAT. EYES: PERRLA, extraocular movements intact, sclera anicteric, conjunctiva clear. No lid lag. EARS, NOSE, THROAT: oropharynx clear without exudates. MMM. NECK: Normal range of motion, supple without lymphadenopathy, JVD, or masses. LUNGS: Breath sounds equal, clear to auscultation bilaterally. No wheezes, and no crackles. No accessory muscle use. HEART:RRR normal S1 and S2. systolic murmur. no rub or gallop. ABDOMEN: TTP RLQ. Soft, not distended, normoactive bowel sounds, no guarding, no rebound, no masses. No hepatomegaly. MUSCULOSKELETAL: Normal range of motion at all joints. No bony deformities or tenderness. No CVA tenderness. UPPER EXTREMITIES: 2+ pulses, warm, well-perfused. No cyanosis. No clubbing. No peripheral edema. LOWER EXTREMITIES: 2+ pulses, warm, well-perfused. No calf tenderness. lymphedema, pachyderma/tough and thick erythematous skin NEUROLOGICAL: Cranial nerves II-XII intact. Normal speech. PSYCHIATRIC: Cooperative. Good eye contact. Appropriate mood and affect. SKIN: Warm, dry, normal capillary refill. lymphedema, pachyderma/tough and thick erythematous skin in legs b/l. Fungal rash noted in inferior aspect of pannus Laboratory Results - last 24 hr 08/13/17 08/13/17 08/13/17 13:34 13:34 13:34 WBC 9.9 RBC 4.68 Hgb 12.3 Hct 37.5 D MCV 80.0 MCH 26.2 MCHC 32.7 RDW 14.9 Plt Count 226 MPV 9.4 Absolute Neuts (auto) 8.0 Neutrophils % 80.7 D Lymphocytes % 13.7 D Monocytes % 3.1 L Eosinophils % 1.9 D Basophils % 0.6 Nucleated RBC % 0 PT with INR INR PTT (Actin FS) Cancelled Sodium Potassium Chloride Carbon Dioxide Anion Gap BUN Creatinine Creat Clearance w eGFR Random Glucose Calcium Total Bilirubin AST ALT Alkaline Phosphatase Total Protein Albumin Lipase Urine Color Urine Appearance Urine pH Ur Specific [place] Urine Protein Urine Glucose (UA) Urine Ketones Urine Blood Urine Nitrite Urine Bilirubin Urine Urobilinogen Ur Leukocyte Esterase Urine WBC (Auto) Urine RBC (Auto) Ur Epithelial Cells Blood Type A POSITIVE Antibody Screen Negative 08/13/17 08/13/17 08/13/17 13:34 13:34 14:40 WBC RBC Hgb Hct MCV MCH MCHC RDW Plt Count MPV Absolute Neuts (auto) Neutrophils % Lymphocytes % Monocytes % Eosinophils % Basophils % Nucleated RBC % PT with INR 11.30 INR 1.00 PTT (Actin FS) 35.6 Sodium 139 Potassium 4.1 Chloride 103 Carbon Dioxide 27 Anion Gap 9 BUN 16 Creatinine 0.9 Creat Clearance w eGFR > 60 Random Glucose 120 H Calcium 8.8 Total Bilirubin 0.4 AST 11 L ALT 16 Alkaline Phosphatase 79 Total Protein 7.0 Albumin 3.2 L Lipase 46 L Urine Color Straw Urine Appearance Clear Urine pH 8.0 Ur Specific [place] 1.006 Urine Protein Negative Urine Glucose (UA) Negative Urine Ketones Negative Urine Blood Negative Urine Nitrite Negative Urine Bilirubin Negative Urine Urobilinogen Negative Ur Leukocyte Esterase Trace Urine WBC (Auto) 1 Urine RBC (Auto) None Ur Epithelial Cells Few Blood Type Antibody Screen UA - negative EKG - no significant changes A/P CT - preliminary read: 1cm appendix w/ no inflammatory changes. pending official read ASSESSMENT/PLAN: 67 y/o F w/ PMH of HTN, DM, Dermatitis with lymphedema, restless leg syndrome, and fibromyalgia, p/w RLQ pain, nausea, and non bloody diarrhea x1 day 2/2 possible early acute appendicitis vs histrionic vs possible [employer] source #Possible Early acute appendicitis vs histrionic vs possible [employer] source - CT prelim report shows no inflammatory changes but cannot exclude appendicitis. Per pt report ovaries were removed but needs to be confirmed w/ CT official read -Surgery consult -OBGYN consult for possible [employer] source of abd pain -NPO -IV fluids NS @75cc/hr -morphine 2mg IV q4h PRN pain 6-10 -f/u official A/P CT report w/ regards to whether ovaries are present or not -CTX 1g IVPB for appendicitis #Abdominal skin fold fungal rash -Nystatin powder -keep area dry #DM -sliding scale -fsg ACHS -DM education about the importance of euglycemia, eye care and foot care. #HTN -will hold ACEi for in the event of possible surgery for tomorrow. BP is currently stable and well controlled #lymphedema -lasix 40mg PO qd #restless leg -c/w home med pramipexole -c/w home med Lexapro #FEN -IV fluids NS @75cc/hr -replete electrolytes as needed -NPO #DVT ppx -SQH 5000U TID #Dispo -admit to inpatient -reasses in the AM for possibe surgery -Full code Visit type - Emergency Visit Emergency Visit: Yes ED Registration Date: 08/13/17 Care time: The patient presented to the Emergency Department on the above date and was hospitalized for further evaluation of their emergent condition. - New Patient This patient is new to me today: Yes Date on this admission: 08/14/17 - Critical Care Critical Care patient: No Hospitalist Screening - Colonoscopy Questionnaire Colonoscopy Questionnaire: Colonoscopy Questionnaire - Patient: 50 - 75 years old and never had a screening colonoscopy: Unknown History of colon or rectal polyps, or CA: Unknown History of IBD, Crohn's disease or UC: Unknown History of abdominal radiation therapy as a child: Unknown - Relative: 1 with colon or rectal CA, or polyps at age 60 or younger: Unknown Colon or rectal CA diagnosed at age 45 or younger: Unknown Multiple relatives with colon or rectal CA: Unknown - Outcome: Screening Result: Negative Screen
[2017-08-13] MEDS ORDERED: ACETAMINOPHEN 325 MG TABLET (FP) PO PRN (23:39)
[2017-08-14] MEDS ORDERED: SODIUM CHLORIDE 1,000 ML IV SCH (00:45)
[2017-08-14] MEDS: MORPHINE SULFATE 2 MG/ML VIAL IVPUSH PRN ×6 (01:13→23:02)
[2017-08-14 01:47] VITALS: BMI 55.4
[2017-08-14] MEDS ORDERED: CEFTRIAXONE 1 GM in DEXTROSE 5%-WATER - 50 ML IVPB ONE ×2 (02:41→06:00)
[2017-08-14] MEDS: INSULIN SLIDING SCALE (NOVOLOG) 1 VIAL SQ SCH ×4 (06:00→22:02)
[2017-08-14] MEDS: HEPARIN NA (PORCINE) 5,000 UNITS/ML 1ML VIAL SQ SCH ×3 (06:00→22:01)
[2017-08-14] MEDS ORDERED: DEXTROSE 5%-WATER - 50 ML IVPB ONE (06:21)
[2017-08-14] MEDS ORDERED: cefTRIAXone SODIUM 1 GM VIAL ONE (06:21)
[2017-08-14 07:59] LABS: BASO % 1.1 % (0-2.0); EOS % 2.6 % (0-4.5); HEMATOCRIT 35.4 % (32.4-45.2); HEMOGLOBIN 11.5 GM/dL (10.7-15.3); MCHC 32.4 g/dl (32.0-36.0); MEAN CELL VOLUME 80.3 fl (80-96); MEAN PLT VOLUME 9.3 fl (7.5-11.1); MONO % 4.5 % (3.8-10.2); NEUT % 75.8 % (42.8-82.8); PLATELET COUNT 209 K/MM3 (134-434); RBC 4.41 M/mm3 (3.60-5.2); WHITE BLOOD COUNT 9.7 K/mm3 (4.0-10.0)
[2017-08-14 08:30] LABS: ALBUMIN 2.9 g/dl (3.4-5.0); ANION GAP 9 (8-16); BLOOD UREA NITROGEN 12 mg/dL (7-18); CALCIUM 8.4 mg/dL (8.5-10.1); CHLORIDE 106 mmol/L (98-107); CO2 26 mmol/L (21-32); GLUCOSE,RANDOM 119 mg/dL (74-106); POTASSIUM 4.2 mmol/L (3.5-5.1); SODIUM 141 mmol/L (136-145)
[2017-08-14 08:35] LABS: ALK PHOS 71 U/L (45-117); BILIRUBIN,TOTAL 0.4 mg/dL (0.2-1.0); CREATININE 0.8 mg/dL (0.55-1.02); SGOT/AST 10 U/L (15-37); SGPT/ALT 12 U/L (12-78); TOT PROT 6.6 g/dl (6.4-8.2)
[2017-08-14] MEDS ORDERED: LIDOCAINE HCL 2% 100 MG/5 ML DISP.SYRIN ONE (10:03)
[2017-08-14] MEDS ORDERED: PROPOFOL 20 ML ONE (10:03)
[2017-08-14] MEDS ORDERED: ePHEDrine SULFATE 50 MG/1 ML AMPULE ONE (10:03)
[2017-08-14] MEDS ORDERED: PHENYLEPHRINE HCL 10 MG/1 ML SINGLE DOSE VIAL ONE (10:03)
[2017-08-14] MEDS ORDERED: SUCCINYLCHOLINE CHLORIDE 200 MG/10 ML VIAL ONE (10:03)
[2017-08-14] MEDS ORDERED: MIDAZOLAM HCL 2 MG/2 ML SINGLE DOSE VIAL ONE (10:04)
[2017-08-14] MEDS ORDERED: ETOMIDATE 20 MG/10 ML AMPUL IVPUSH ONE (10:05)
[2017-08-14] MEDS ORDERED: PT OWN MED DRAWER 7, Y5N ONE ×2 (10:40→18:10)
[2017-08-14] MEDS: FUROSEMIDE 40 MG TABLET (FP) PO SCH (10:42)
[2017-08-14] MEDS: ESCITALOPRAM OXALATE 10 MG TABLET (FP) PO SCH (10:43)
[2017-08-14] MEDS: PRAMIPEXOLE DIHYDROCHLORIDE 0.125 MG TABLET PO SCH ×2 (10:44→18:11)
[2017-08-14] MEDS: NYSTATIN POWDER 100,000 UNITS/GM - 15 GM TOPICAL POWDER TP SCH (10:45)
--- NOTE | 2017-08-14 11:57 | PN ---
Progress Note, Physician Chief Complaint: abdominal pain History of Present Illness: 67yo female PMH HTN, DM, Dermatitis with lymphedema, restless leg syndrome, fibromyalgia who presents to the ER with complaints of abdominal pain. Abdominal pain persists. - Current Medication List Current Medications: Active Medications Acetaminophen (Tylenol -) 650 mg PO Q4H PRN PRN Reason: PAIN LEVEL 4 - 6 Escitalopram Oxalate (Lexapro -) 10 mg PO DAILY [facility] Last Admin: 08/14/17 10:43 Dose: 10 mg Furosemide (Lasix -) 40 mg PO DAILY [facility] Last Admin: 08/14/17 10:42 Dose: 40 mg Heparin Sodium (Porcine) (Heparin -) 5,000 unit SQ TID [facility] Last Admin: 08/14/17 06:00 Dose: 5,000 unit Sodium Chloride (Normal Saline -) 1,000 mls @ 75 mls/hr IV ASDIR [facility] Last Admin: 08/14/17 01:18 Dose: 75 mls/hr Insulin Aspart (Novolog Vial Sliding Scale -) 1 vial SQ ACHS [facility]; Protocol Last Admin: 08/14/17 06:00 Dose: Not Given Morphine Sulfate (Morphine Sulfate) 2 mg IVPUSH Q3H PRN PRN Reason: PAIN LEVEL 6-10 Nystatin (Nystop Powder -) 1 applic TP DAILY [facility] Last Admin: 08/14/17 10:45 Dose: 1 applic Pramipexole Dihydrochloride (Mirapex -) 1.5 mg PO HS [facility] Pramipexole Dihydrochloride (Mirapex -) 0.375 mg PO BID@1000,1800 [facility] Last Admin: 08/14/17 10:44 Dose: 0.375 mg - Objective Vital Signs: Vital Signs Temperature 98.4 F 08/14/17 10:00 Pulse Rate 65 08/14/17 10:00 Respiratory Rate 18 08/14/17 10:00 Blood Pressure 160/72 08/14/17 10:00 O2 Sat by Pulse Oximetry (%) 98 08/14/17 01:49 Constitutional: Yes: No Distress, Calm, Obese Eyes: Yes: Conjunctiva Clear, EOM Intact HENT: Yes: Atraumatic, Normocephalic Neck: Yes: Supple, Trachea Midline Cardiovascular: Yes: Regular Rate and Rhythm, S1, S2 Respiratory: Yes: Regular, CTA Bilaterally Gastrointestinal: Yes: Normal Bowel Sounds, Soft, Abdomen, Obese, Tenderness ( bilateral lower abdoman umcomfortable, -rebound -guarding). No: Hernia, Tenderness, Epigastrium, Tenderness, Rebound Musculoskeletal: No: Muscle Pain, Muscle Weakness Extremities: No: Cool, Cyanosis Neurological: Yes: Alert, Oriented Psychiatric: Yes: Alert, Oriented Labs: CBC, BMP 08/14/17 07:40 08/14/17 07:40 INR, PTT INR 1.00 (0.82-1.09) 08/13/17 13:34 Problem List - Problems (1) Appendicitis Assessment/Plan: 67 yo female MMP with 1 day of abdominal pain, CTscan re- read not acute appendicitis. No indication for surgical intervention Diet as tolerated empiric IV antibiotics Pain management for analgesia Repeat labs will follow peripherally Code(s): K37 - UNSPECIFIED APPENDICITIS Qualifiers: Appendicitis type: unspecified Qualified Code(s): K37 - Unspecified appendicitis (2) Abdominal pain in female patient Code(s): R10.9 - UNSPECIFIED ABDOMINAL PAIN (3) Anemia Code(s): D64.9 - ANEMIA, UNSPECIFIED (4) Aortic stenosis Code(s): I35.0 - NONRHEUMATIC AORTIC (VALVE) STENOSIS (5) Diabetes Code(s): E11.9 - TYPE 2 DIABETES MELLITUS WITHOUT COMPLICATIONS Qualifiers: Diabetes mellitus type: type 2 (6) HTN (hypertension) Code(s): I10 - ESSENTIAL (PRIMARY) HYPERTENSION
[2017-08-14] MEDS ORDERED: CELECOXIB 200 MG CAPSULE PO ONE (12:51)
--- NOTE | 2017-08-14 16:42 | PN ---
Physical Exam: SUBJECTIVE: Patient seen and examined at bedside. Complains of severe pain in RLQ and diffuse pain throughout back, hips, and legs. OBJECTIVE: Vital Signs Period Temp Pulse Resp BP Sys/Garcia Pulse Ox Last 24 Hr 98 F-99.1 F 65-83 18-22 117-162/53-80 98-99 GENERAL: Morbidly obese woman appearing stated age, in significant pain. A&Ox3. HEAD: NC/AT EYES: PERRLA, EOMI, anicteric sclera ENT: MMM NECK: Trachea midline, full range of motion, supple, no JVD or cervical LAD appreciated LUNGS: CTA b/l HEART: RRR, S1S2, systolic murmur ABDOMEN: +bs, soft, non-distended, significant TTP in RLQ, no guarding, no rebound tenderness EXTREMITIES: 2+ pulses, warm, well-perfused, no edema, lymphedema, pachyderma/ tough and thick erythematous skin NEUROLOGICAL: Cranial nerves II through XII grossly intact, moving 4 extremities spontaneously, sensorium intact SKIN: Warm, dry, normal capillary refill. lymphedema, pachyderma/tough and thick erythematous skin in legs b/l. Fungal rash noted in inferior aspect of pannus Laboratory Results - last 24 hr 08/14/17 08/14/17 08/14/17 05:59 07:40 07:40 WBC 9.7 RBC 4.41 Hgb 11.5 Hct 35.4 MCV 80.3 MCH 26.0 MCHC 32.4 RDW 15.0 Plt Count 209 MPV 9.3 Absolute Neuts (auto) 7.3 Neutrophils % 75.8 Lymphocytes % 16.0 Monocytes % 4.5 Eosinophils % 2.6 Basophils % 1.1 Nucleated RBC % 0 Sodium 141 Potassium 4.2 Chloride 106 Carbon Dioxide 26 Anion Gap 9 BUN 12 Creatinine 0.8 Creat Clearance w eGFR > 60 POC Glucometer 135 Random Glucose 119 H Calcium 8.4 L Total Bilirubin 0.4 AST 10 L ALT 12 Alkaline Phosphatase 71 Total Protein 6.6 Albumin 2.9 L 08/14/17 12:16 WBC RBC Hgb Hct MCV MCH MCHC RDW Plt Count MPV Absolute Neuts (auto) Neutrophils % Lymphocytes % Monocytes % Eosinophils % Basophils % Nucleated RBC % Sodium Potassium Chloride Carbon Dioxide Anion Gap BUN Creatinine Creat Clearance w eGFR POC Glucometer 138 Random Glucose Calcium Total Bilirubin AST ALT Alkaline Phosphatase Total Protein Albumin Active Medications Generic Name Dose Route Start Last Admin Trade Name Donnieq PRN Reason Stop Dose Admin Acetaminophen 650 mg 08/13/17 23:39 Tylenol - PO Q4H PRN PAIN LEVEL 4 - 6 Escitalopram Oxalate 10 mg 08/14/17 10:00 08/14/17 10:43 Lexapro - PO 10 mg DAILY [facility] Administration Furosemide 40 mg 08/14/17 10:00 08/14/17 10:42 Lasix - PO 40 mg DAILY [facility] Administration Heparin Sodium (Porcine) 5,000 unit 08/14/17 06:00 08/14/17 06:00 Heparin - SQ 5,000 unit TID [facility] Administration Insulin Aspart 1 vial 08/14/17 07:00 08/14/17 12:53 Novolog Vial Sliding Scale - SQ Not Given [facility] Protocol Morphine Sulfate 2 mg 08/14/17 11:33 08/14/17 15:22 Morphine Sulfate IVPUSH 2 mg Q3H PRN Administration PAIN LEVEL 6-10 Nystatin 1 applic 08/14/17 10:00 08/14/17 10:45 Nystop Powder - TP 1 applic DAILY [facility] Administration Pramipexole Dihydrochloride 1.5 mg 08/14/17 22:00 Mirapex - PO HS [facility] Pramipexole Dihydrochloride 0.375 mg 08/14/17 10:00 08/14/17 10:44 Mirapex - PO 0.375 mg BID@1000,1800 [facility] Administration ASSESSMENT/PLAN: 67 y/o F w/ PMH of HTN, DM, Dermatitis with lymphedema, restless leg syndrome, and fibromyalgia, p/w RLQ pain, nausea, and non bloody diarrhea x1 day 2/2 possible early acute appendicitis vs histrionic vs possible [employer] source #Possible Early acute appendicitis vs histrionic vs possible MACH[employer]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 #HTN -ACEi can be given as there will be no surgical intervention; patient to be discharged imminently #lymphedema -lasix 40mg PO qd #restless leg -c/w home med pramipexole -c/w home med Lexapro #FEN -IV fluids NS @75cc/hr -replete electrolytes as needed -clear liquid #DVT ppx -SQH 5000U TID #Dispo -discharge home if CT negative; neuro evaluation can be pursued as outpatient -Full code Visit type - Emergency Visit Emergency Visit: No - New Patient This patient is new to me today: Yes Date on this admission: 08/14/17 - Critical Care Critical Care patient: No
--- NOTE | 2017-08-14 19:09 | CONSULT ---
Consult - text type - Consultation Consultation Note: NEUROLOGY CONSULTATION is greatly appreciated: This 67 yo RH woman with h/o HTN, DM, Gout and lymphedema is well-known to me over many years with severe RLS. Maintained on: Escitalopram; Furosemide; Lisinopril; Percocet 5-325 mg; and Pramipexole .375 mg PO BID and 1.5 mg PO HS. Now admitted with RLQ pain that begam in the middle of the night and awakened her. W/U neg for appendicitis. Nl WBC. Nl Abd/pelvic CT. CT of LS spine: Moderate, diffuse DJD without surgical lesions. Much more comfortable today. Notes decreased leg swelling with bedrest. EXAM: Obese. B/L Lymphedema and redness with some blisters. Neg SLR NEURO: MS/Speech: Normal CN II-XII: Normal Motor: Normal strength. Areflexic in the legs. Coord: No FTN Dystaxia Sensory: Reduced vibration in the feet. IMP: Non-focal exam sig for a moderate, predominantly sensory, peripheral neuropathy. Severe Restless Limbs Syndrome (RLS). SUGGEST: Check Fe++, TIBC, Ferritin. Continue Pramipexole: .375 BID and 1.5 mg QHS. Neuro f/u as out patient. Thank you very much, Gurmeet Loyd MD
--- NOTE | 2017-08-14 21:12 | PN ---
Teaching Attending Note Name of Resident: Sixto Orozco ATTENDING PHYSICIAN STATEMENT I saw and evaluated the patient. I reviewed the resident's note and discussed the case with the resident. I agree with the resident's findings and plan as documented. SUBJECTIVE: OBJECTIVE: Vital Signs Temperature 98.3 F 08/14/17 17:20 Pulse Rate 75 08/14/17 17:20 Respiratory Rate 20 08/14/17 17:20 Blood Pressure 159/73 08/14/17 17:20 O2 Sat by Pulse Oximetry (%) 98 08/14/17 01:49 CBCD WBC 9.7 K/mm3 (4.0-10.0) 08/14/17 07:40 RBC 4.41 M/mm3 (3.60-5.2) 08/14/17 07:40 Hgb 11.5 GM/dL (10.7-15.3) 08/14/17 07:40 Hct 35.4 % (32.4-45.2) 08/14/17 07:40 MCV 80.3 fl (80-96) 08/14/17 07:40 MCHC 32.4 g/dl (32.0-36.0) 08/14/17 07:40 RDW 15.0 % (11.6-15.6) 08/14/17 07:40 Plt Count 209 K/MM3 (134-434) 08/14/17 07:40 MPV 9.3 fl (7.5-11.1) 08/14/17 07:40 CMP Sodium 141 mmol/L (136-145) 08/14/17 07:40 Potassium 4.2 mmol/L (3.5-5.1) 08/14/17 07:40 Chloride 106 mmol/L (98-107) 08/14/17 07:40 Carbon Dioxide 26 mmol/L (21-32) 08/14/17 07:40 Anion Gap 9 (8-16) 08/14/17 07:40 BUN 12 mg/dL (7-18) 08/14/17 07:40 Creatinine 0.8 mg/dL (0.55-1.02) 08/14/17 07:40 Creat Clearance w eGFR > 60 (>60) 08/14/17 07:40 Random Glucose 119 mg/dL (74-106) H 07/05/18 07:40 Calcium 8.4 mg/dL (8.5-10.1) L 08/14/17 07:40 Total Bilirubin 0.4 mg/dL (0.2-1.0) 08/14/17 07:40 AST 10 U/L (15-37) L 08/14/17 07:40 ALT 12 U/L (12-78) 08/14/17 07:40 Alkaline Phosphatase 71 U/L (45-117) 08/14/17 07:40 Total Protein 6.6 g/dl (6.4-8.2) 08/14/17 07:40 Albumin 2.9 g/dl (3.4-5.0) L 08/14/17 07:40 Current Medications Generic Name Dose Route Start Last Admin Trade Name Freq PRN Reason Stop Dose Admin Acetaminophen 650 mg 08/13/17 23:39 Tylenol - PO Q4H PRN PAIN LEVEL 4 - 6 Escitalopram Oxalate 10 mg 08/14/17 10:00 08/14/17 10:43 Lexapro - PO 10 mg DAILY [facility] Administration Furosemide 40 mg 08/14/17 10:00 08/14/17 10:42 Lasix - PO 40 mg DAILY [facility] Administration Heparin Sodium (Porcine) 5,000 unit 08/14/17 06:00 08/14/17 16:52 Heparin - SQ 5,000 unit TID [facility] Administration Insulin Aspart 1 vial 08/14/17 07:00 08/14/17 18:02 Novolog Vial Sliding Scale - SQ Not Given ACHS [facility] Protocol Morphine Sulfate 2 mg 08/14/17 11:33 08/14/17 19:16 Morphine Sulfate IVPUSH 2 mg Q3H PRN Administration PAIN LEVEL 6-10 Nystatin 1 applic 08/14/17 10:00 08/14/17 10:45 Nystop Powder - TP 1 applic DAILY [facility] Administration Pramipexole Dihydrochloride 1.5 mg 08/14/17 22:00 Mirapex - PO HS [facility] Pramipexole Dihydrochloride 0.375 mg 08/14/17 10:00 08/14/17 18:11 Mirapex - PO 0.375 mg BID@1000,1800 [facility] Administration Home Medications Medication Instructions Recorded Escitalopram Oxalate [Lexapro -] 10 mg PO DAILY 02/22/16 Furosemide [Lasix] 40 mg PO DAILY 02/22/16 Lisinopril [Prinivil] 10 mg PO DAILY 02/22/16 Oxycodone HCl/Acetaminophen 1 - 2 tab PO HS 02/22/16 [Percocet 5-325 mg Tablet] Pramipexole Dihydrochloride 0.375 mg PO BID 08/13/17 [Mirapex -] Pramipexole Dihydrochloride 1.5 mg PO HS 08/13/17 [Mirapex -] ASSESSMENT AND PLAN: 67 y/o F w/ PMH of HTN, DM, Dermatitis with lymphedema, restless leg syndrome, and fibromyalgia, p/w RLQ pain, nausea, and non bloody diarrhea x1 day 2/2 possible early acute appendicitis vs histrionic vs possible [employer]AIGHT[employer] source #Acute Lower back/pelvic/hip pain r/o fx, CT is pending on pain meds continue #Abdominal skin fold fungal rash , Nystatin powder #RLQ pain ,acute appendicitis was rulled out, also patient has hx if GUILLAUME with OOpherectomy #HTN continue meds #lymphedema continue lasix 40mg PO qd #restless leg c/w home med pramipexole and lexapro #DVT ppx :SQH 5000U TID discharge home if CT negative; neuro evaluation can be pursued as outpatient -Full code
[2017-08-14] MEDS ORDERED: PRAMIPEXOLE DIHYDROCHLORIDE 1.5 MG TABLET PO SCH (22:00)
[2017-08-15] MEDS: MORPHINE SULFATE 2 MG/ML VIAL IVPUSH PRN ×3 (02:38→09:53)
[2017-08-15] MEDS: HEPARIN NA (PORCINE) 5,000 UNITS/ML 1ML VIAL SQ SCH (05:49)
[2017-08-15] MEDS: INSULIN SLIDING SCALE (NOVOLOG) 1 VIAL SQ SCH ×2 (06:01→15:10)
[2017-08-15] MEDS ORDERED: LISINOPRIL 10 MG TABLET (FP) PO ONE (06:28)
[2017-08-15 06:58] LABS: BASO % 0.8 % (0-2.0); EOS % 2.4 % (0-4.5); HEMATOCRIT 33.5 % (32.4-45.2); LYMPH % 12.9 % (8-40); MCH 26.2 pg (25.7-33.7); MCHC 32.7 g/dl (32.0-36.0); MEAN PLT VOLUME 9.5 fl (7.5-11.1); MONO % 6.8 % (3.8-10.2); NEUT % 77.1 % (42.8-82.8); PLATELET COUNT 183 K/MM3 (134-434); RBC 4.19 M/mm3 (3.60-5.2); RDW 15.4 % (11.6-15.6); WHITE BLOOD COUNT 11.9 K/mm3 (4.0-10.0)
[2017-08-15 07:22] LABS: CHLORIDE 105 mmol/L (98-107); POTASSIUM 3.7 mmol/L (3.5-5.1); SODIUM 141 mmol/L (136-145)
[2017-08-15 07:33] LABS: ANION GAP 10 (8-16); BLOOD UREA NITROGEN 11 mg/dL (7-18); CALCIUM 8.3 mg/dL (8.5-10.1); CO2 26 mmol/L (21-32); CREATININE 0.8 mg/dL (0.55-1.02); GLUCOSE,RANDOM 114 mg/dL (74-106)
[2017-08-15 09:48] VITALS: BP 114/79; PULSE 77; TEMP 99.8
[2017-08-15] MEDS: FUROSEMIDE 40 MG TABLET (FP) PO SCH (09:49)
[2017-08-15] MEDS: ESCITALOPRAM OXALATE 10 MG TABLET (FP) PO SCH (09:49)
--- NOTE | 2017-08-15 09:49 | PN ---
Progress Note, Physician Chief Complaint: abdominal pain History of Present Illness: 67yo female PMH HTN, DM, Dermatitis with lymphedema, restless leg syndrome, fibromyalgia who presents to the ER with complaints of abdominal pain. Abdominal pain persists, but remain non specific. - Current Medication List Current Medications: Active Medications Acetaminophen (Tylenol -) 650 mg PO Q4H PRN PRN Reason: PAIN LEVEL 4 - 6 Escitalopram Oxalate (Lexapro -) 10 mg PO DAILY [facility] Last Admin: 08/14/17 10:43 Dose: 10 mg Furosemide (Lasix -) 40 mg PO DAILY [facility] Last Admin: 08/14/17 10:42 Dose: 40 mg Heparin Sodium (Porcine) (Heparin -) 5,000 unit SQ TID [facility] Last Admin: 08/15/17 05:49 Dose: 5,000 unit Insulin Aspart (Novolog Vial Sliding Scale -) 1 vial SQ ACHS [facility]; Protocol Last Admin: 08/15/17 06:01 Dose: Not Given Morphine Sulfate (Morphine Sulfate) 2 mg IVPUSH Q3H PRN PRN Reason: PAIN LEVEL 6-10 Last Admin: 08/15/17 05:49 Dose: 2 mg Nystatin (Nystop Powder -) 1 applic TP DAILY [facility] Last Admin: 08/14/17 10:45 Dose: 1 applic Pramipexole Dihydrochloride (Mirapex -) 1.5 mg PO HS [facility] Last Admin: 08/14/17 22:02 Dose: 1.5 mg Pramipexole Dihydrochloride (Mirapex -) 0.375 mg PO BID@1000,1800 [facility] Last Admin: 08/14/17 18:11 Dose: 0.375 mg - Objective Vital Signs: Vital Signs Temperature 98.7 F 08/15/17 03:00 Pulse Rate 74 08/15/17 03:00 Respiratory Rate 20 08/15/17 03:00 Blood Pressure 141/69 08/15/17 03:00 O2 Sat by Pulse Oximetry (%) 94 L 08/14/17 21:00 Vital Signs Period Temp Pulse Resp BP Sys/Garcia Pulse Ox Last 24 Hr 98.1 F-98.7 F 65-83 18-20 141-162/69-80 94 Constitutional: Yes: No Distress, Calm, Obese Eyes: Yes: Conjunctiva Clear, EOM Intact HENT: Yes: Atraumatic, Normocephalic Neck: Yes: Supple, Trachea Midline Cardiovascular: Yes: Regular Rate and Rhythm, S1, S2 Respiratory: Yes: Regular, CTA Bilaterally Gastrointestinal: Yes: Normal Bowel Sounds, Soft, Abdomen, Obese. No: Distention, Tenderness, Tenderness, Epigastrium, Tenderness, Rebound ...Rectal Exam: Yes: Deferred Genitourinary: No: CVA Tenderness - Left, CVA Tenderness - Right Labs: CBC, BMP 08/15/17 06:30 08/15/17 06:30 INR, PTT INR 1.00 (0.82-1.09) 08/13/17 13:34 Problem List - Problems (1) Appendicitis Assessment/Plan: 67 yo female MMP with 1 day of abdominal pain, CTscan re- read not acute appendicitis. No indication for surgical intervention Diet as tolerated empiric IV antibiotics Pain management for analgesia Repeat labs will follow peripherally Discharge planning Code(s): K37 - UNSPECIFIED APPENDICITIS Qualifiers: Appendicitis type: unspecified Qualified Code(s): K37 - Unspecified appendicitis (2) Abdominal pain in female patient Code(s): R10.9 - UNSPECIFIED ABDOMINAL PAIN (3) Anemia Code(s): D64.9 - ANEMIA, UNSPECIFIED (4) Aortic stenosis Code(s): I35.0 - NONRHEUMATIC AORTIC (VALVE) STENOSIS (5) Diabetes Code(s): E11.9 - TYPE 2 DIABETES MELLITUS WITHOUT COMPLICATIONS Qualifiers: Diabetes mellitus type: type 2 (6) HTN (hypertension) Code(s): I10 - ESSENTIAL (PRIMARY) HYPERTENSION
[2017-08-15] MEDS: PRAMIPEXOLE DIHYDROCHLORIDE 0.125 MG TABLET PO SCH (09:50)
[2017-08-15] MEDS: NYSTATIN POWDER 100,000 UNITS/GM - 15 GM TOPICAL POWDER TP SCH (09:51)
[2017-08-15] MEDS ORDERED: PT OWN MED DRAWER 7, Y5N ONE (10:00)
--- NOTE | 2017-08-15 14:43 | DS ---
Physical Exam: SUBJECTIVE: Patient seen and examined at bedside. Reports good control of pain with morphine and tavo OBJECTIVE: Vital Signs Period Temp Pulse Resp BP Sys/Garcia Pulse Ox Last 24 Hr 98.1 F-99.8 F 74-83 18-20 114-162/69-80 94 PHYSICAL EXAM GENERAL: Morbidly obese woman appearing stated age, in significant pain. A&Ox3. HEAD: NC/AT EYES: PERRLA, EOMI, anicteric sclera ENT: MMM NECK: Trachea midline, full range of motion, supple, no JVD or cervical LAD appreciated LUNGS: CTA b/l HEART: RRR, S1S2, systolic murmur ABDOMEN: +bs, soft, non-distended, significant TTP in RLQ, no guarding, no rebound tenderness EXTREMITIES: 2+ pulses, warm, well-perfused, no edema, lymphedema, pachyderma/ tough and thick erythematous skin NEUROLOGICAL: Cranial nerves II through XII grossly intact, moving 4 extremities spontaneously, sensorium intact SKIN: Warm, dry, normal capillary refill. lymphedema, pachyderma/tough and thick erythematous skin in legs b/l. Fungal rash noted in inferior aspect of pannus. LABS Laboratory Results - last 24 hr 08/14/17 08/14/17 08/15/17 17:30 21:02 05:54 WBC RBC Hgb Hct MCV MCH MCHC RDW Plt Count MPV Absolute Neuts (auto) Neutrophils % Lymphocytes % Monocytes % Eosinophils % Basophils % Nucleated RBC % Sodium Potassium Chloride Carbon Dioxide Anion Gap BUN Creatinine Creat Clearance w eGFR POC Glucometer 105 126 118 Random Glucose Calcium Ferritin 08/15/17 08/15/17 08/15/17 06:30 06:30 06:35 WBC 11.9 H RBC 4.19 Hgb 11.0 Hct 33.5 MCV 80.0 MCH 26.2 MCHC 32.7 RDW 15.4 Plt Count 183 MPV 9.5 Absolute Neuts (auto) 9.1 Neutrophils % 77.1 Lymphocytes % 12.9 Monocytes % 6.8 Eosinophils % 2.4 Basophils % 0.8 Nucleated RBC % 0 Sodium 141 Potassium 3.7 Chloride 105 Carbon Dioxide 26 Anion Gap 10 BUN 11 Creatinine 0.8 Creat Clearance w eGFR > 60 POC Glucometer Random Glucose 114 H Calcium 8.3 L Ferritin 38.3 Cancelled HOSPITAL COURSE: Date of Admission:08/13/17 Patient is a 67 y/o F w/ PMHx HTN, DM, Dermatitis with lymphedema, restless leg syndrome, and fibromyalgia, p/w severe RLQ pain, nausea, and non bloody diarrhea x1 day, admitted for workup of possible appendicitis. Pelvic CT scan showed large but non-inflamed appendix. Evaluation by the surgical team found the abdomen to be non-surgical. Following admission, the patient additionally complained of diffuse pain throughout lumbar region and hips, particularly on the right side. Pain persisted throughout hospitalization but was ultimately well-controlled with morphine and celecoxib. CT of the lumbar spine and hips found evidence of multiple herniating/bulging discs and possible neuroma at L5/ S1, but demonstrated no fractures. Patient was evaluated by her usual neurologist, Dr. Loyd, while hospitalized, and recommended for outpatient followup. The patient was discharged home with instructions to follow up on an outpatient basis with Dr. Loyd and Dr. Sandhu, resume home medications as usual, and was additionally prescribed a 7 day supply of celecoxib. Date of Discharge: 08/15/17 Minutes to complete discharge: 39 Discharge Summary Reason For Visit: APPENDICITIS Condition: Stable - Instructions Diet, Activity, Other Instructions: You were hospitalized due to abdominal pain. You were evaluated by CT scan and by the surgical team, who determined that you do not require surgery since your appendix was not found to require operative management. You were given medication and IV fluids to manage the pain. Referrals: You have been given referrals to Dr. Sandhu and Dr. Loyd for followup evaluation of your symptoms. Please make appointments with each of them within one week of discharge. Medical recommendations: Please resume your home medications as directed. Please drink plenty of water. Please follow outpatient recommendations for longterm control of your pain. If you experience increasingly severe abdominal pain, new onset vomiting or diarrhea, develop fevers or chills, develop difficulty breathing or chest pain, or develop any new symptoms, please come to the Emergency Department immediately. Referrals: Gurmeet Loyd MD [Staff Physician] - 1 Week Marlo Sandhu MD [Non Staff, Medical] - 1 Week Disposition: HOME - Home Medications Comprehensive Discharge Medication List: Ambulatory Orders Escitalopram Oxalate [Lexapro -] 10 mg PO DAILY 02/22/16 Furosemide [Lasix] 40 mg PO DAILY 02/22/16 Lisinopril [Prinivil] 10 mg PO DAILY 02/22/16 Oxycodone HCl/Acetaminophen [Percocet 5-325 mg Tablet] 1 - 2 tab PO HS 02/22/16 Pramipexole Dihydrochloride [Mirapex -] 0.375 mg PO BID 08/13/17 Pramipexole Dihydrochloride [Mirapex -] 1.5 mg PO HS 08/13/17 Celecoxib [Celebrex -] 200 mg PO DAILY #7 capsule 08/15/17 This patient is new to me today: No Emergency Visit: No Critical Care patient: No - Discharge Referral Referred to [facility] Med P.C.: No
--- NOTE | 2017-08-15 17:10 | PN ---
Teaching Attending Note Name of Resident: Sixto Orozco ATTENDING PHYSICIAN STATEMENT I saw and evaluated the patient. I reviewed the resident's note and discussed the case with the resident. I agree with the resident's findings and plan as documented. SUBJECTIVE: HER PAIN IS MUCH IMPROVED POST CELEBRYX OBJECTIVE: Vital Signs Temperature 99.8 F H 08/15/17 09:47 Pulse Rate 77 08/15/17 09:47 Respiratory Rate 18 08/15/17 09:47 Blood Pressure 114/79 08/15/17 09:47 O2 Sat by Pulse Oximetry (%) 94 L 08/14/17 21:00 CBCD WBC 11.9 K/mm3 (4.0-10.0) H 08/15/17 06:30 RBC 4.19 M/mm3 (3.60-5.2) 08/15/17 06:30 Hgb 11.0 GM/dL (10.7-15.3) 08/15/17 06:30 Hct 33.5 % (32.4-45.2) 08/15/17 06:30 MCV 80.0 fl (80-96) 08/15/17 06:30 MCHC 32.7 g/dl (32.0-36.0) 08/15/17 06:30 RDW 15.4 % (11.6-15.6) 08/15/17 06:30 Plt Count 183 K/MM3 (134-434) 08/15/17 06:30 MPV 9.5 fl (7.5-11.1) 08/15/17 06:30 CMP Sodium 141 mmol/L (136-145) 08/15/17 06:30 Potassium 3.7 mmol/L (3.5-5.1) 08/15/17 06:30 Chloride 105 mmol/L (98-107) 08/15/17 06:30 Carbon Dioxide 26 mmol/L (21-32) 08/15/17 06:30 Anion Gap 10 (8-16) 08/15/17 06:30 BUN 11 mg/dL (7-18) 08/15/17 06:30 Creatinine 0.8 mg/dL (0.55-1.02) 08/15/17 06:30 Creat Clearance w eGFR > 60 (>60) 08/15/17 06:30 Random Glucose 114 mg/dL (74-106) H 08/15/17 06:30 Calcium 8.3 mg/dL (8.5-10.1) L 08/15/17 06:30 Total Bilirubin 0.4 mg/dL (0.2-1.0) 08/14/17 07:40 AST 10 U/L (15-37) L 08/14/17 07:40 ALT 12 U/L (12-78) 08/14/17 07:40 Alkaline Phosphatase 71 U/L (45-117) 08/14/17 07:40 Total Protein 6.6 g/dl (6.4-8.2) 08/14/17 07:40 Albumin 2.9 g/dl (3.4-5.0) L 08/14/17 07:40 Home Medications Medication Instructions Recorded Escitalopram Oxalate [Lexapro -] 10 mg PO DAILY 02/22/16 Furosemide [Lasix] 40 mg PO DAILY 02/22/16 Lisinopril [Prinivil] 10 mg PO DAILY 02/22/16 Oxycodone HCl/Acetaminophen 1 - 2 tab PO HS 02/22/16 [Percocet 5-325 mg Tablet] Pramipexole Dihydrochloride 0.375 mg PO BID 08/13/17 [Mirapex -] Pramipexole Dihydrochloride 1.5 mg PO HS 08/13/17 [Mirapex -] Celecoxib [Celebrex -] 200 mg PO DAILY #7 capsule 08/15/17 CT scan of the lumbar spine without intravenous contrast. Coronal and sagittal reconstruction images were obtained. There is moderate to marked degenerative disc disease at T11-T12 level, mainly anteriorly. Mild to moderate degenerative disc disease at L3-L4 level, mainly posteriorly and on the left. Otherwise the height and alignment of the vertebral bodies appear unremarkable without gross evidence of a compression fracture or subluxation. L3-L4 mild bilateral lateral disc bulge probably slightly impinging far lateral left L3 nerve root. L4-L5 mild mainly central disc bulge with moderately severe bilateral facet and ligamentum hypertrophy resulting in moderate narrowing of the central canal. L5- S1 mild right lateral disc bulge impinging right L5 nerve root with a soft tissue density measuring approximately 1.4 cm seen around the right S1 nerve roots at upper S1 level that may represent an extruded disc fragment. No prior surgeries identified to suggest scar tissue. However, there is a moderately severe right facet hypertrophy with sclerotic and subchondral cystic changes and mild irregularity of the facet joint. Mild left facet hypertrophy is present. Note is made of small bilateral pleural effusion. No paraspinal soft tissue mass is seen. Small calcified plaques in the abdominal aorta down through its bifurcation. Adequately distended urinary bladder without wall thickening. Perirectal fat is clear Impression: No compression fracture or subluxation are identified. Moderate to marked degenerative disc disease at T11- T12 level, mainly anteriorly. And mild to moderate degenerative disc disease at L3-L4 level, mainly posteriorly, on the left. L3-L4 mild bilateral lateral disc bulge probably slightly impinging far lateral left L3 nerve root. L4-L5 mild central disc bulge with significant bilateral facet and ligamentum hypertrophy resulting in moderate degenerative central spinal canal stenosis. L5-S1 soft tissue masslike density in the right anterior aspect of the spinal canal at upper S1 level that may represent a large extruded disc fragment impinging right S1 nerve root. A nerve root sheath lesion/neuroma could not be excluded. There is also significant degenerative changes involving the right facet joint with irregularity of the corresponding articular margins. Mild left facet hypertrophy. Correlation with contrast-enhanced MRI of the lumbar spine is needed for further evaluation. Status post fall CT scan of the pelvis without intravenous contrast Both hip joints appear intact without gross evidence of a fracture or dislocation. Degenerative changes in included portion of the lower lumbar spine, as described above. Nonvisualization of the uterus. Otherwise, the visualized soft tissue appears unremarkable. Impression: Both hip joints appear unremarkable without gross evidence of a fracture or dislocation. pe;PER RESIDENT'S NOTE ASSESSMENT AND PLAN: 67 y/o F w/ PMH of HTN, DM, Dermatitis with lymphedema, restless leg syndrome, and fibromyalgia, p/w RLQ pain, nausea, and non bloody diarrhea x1 day 2/2 possible early acute appendicitis vs histrionic vs possible [employer] source #Acute Lower back/pelvic/hip pain r/o fx, FEELS BETTER ON cELEBRYX 200MG X 1 DOSE GIVEN. PATIENT WILL CONTINUE CELEBRYX X 7 DAYS FOR PAIN, WILL TAKE PERCOCET PER NEURO. #Abdominal skin fold fungal rash , Nystatin powder #RLQ pain ,acute appendicitis was rulled out, also patient has hx if GUILLAUME with OOpherectomy #HTN continue meds #lymphedema continue lasix 40mg PO qd #restless leg c/w home med pramipexole and lexapro discharge home AND FOLLOW UP WITH nEURO, -Full code
[2017-08-16 06:19] LABS: SERUM IRON SATURATION 19 % (15-55); TOTAL IRON BINDING CAPACITY 315 ug/dL (250-450); UIBC 256 ug/dL (118-369)
== END 2017-08-15 13:26 | disposition home or self-care (01) | DRG 392 ==
LOC: JER 13:11 → JERBED 19:59 → J8W 21:56
PROVIDERS: ADMIT Internal Medicine; ATTEND Internal Medicine
DX: R10.9 Unspecified abdominal pain (principal); Z68.43 Body mass index [BMI] 50.0-59.9, adult; E66.01 Morbid (severe) obesity due to excess calories; K37 Unspecified appendicitis; I10 Essential (primary) hypertension; E11.9 Type 2 diabetes mellitus without complications; G25.81 Restless legs syndrome; M47.897 Other spondylosis, lumbosacral region; M79.7 Fibromyalgia; Z90.710 Acquired absence of both cervix and uterus; I35.0 Nonrheumatic aortic (valve) stenosis; Z88.0 Allergy status to penicillin; Z88.2 Allergy status to sulfonamides; R21 Rash and other nonspecific skin eruption; I89.0 Lymphedema, not elsewhere classified; M10.9 Gout, unspecified; G62.9 Polyneuropathy, unspecified
CPT/HCPCS: 36415; 72131-TC; 72192-TC; 74177-TC; 80048; 80053; 81003; 81015; 82728; 82962; 83540; 83550; 83690; 85025; 85610; 85730; 86850; 86900; 86901; 99283-25; J1644; J7030

== ENCOUNTER 2017-11-14 13:32 | Inpatient (IN) | payer OTHER, MEDICARE ==
[2017-11-14] MEDS ORDERED: SODIUM CHLORIDE 0.9% 1000 ML INFUS.BAG IV STA (13:55)
--- NOTE | 2017-11-14 13:55 | PDOC ---
History of Present Illness - General Chief Complaint: Weakness Stated Complaint: Weakness Time Seen by Provider: 11/14/17 13:44 History Source: Patient Exam Limitations: No Limitations - History of Present Illness Initial Comments: 11/14/17 16:38 Mrs Bautista 67 year old female, with a significant PMH of HTN, pre diabetic, chronic dermatitis with lymphedema, restless leg syndrome, and fibromyalgia, who presents to the emergency department for evaluation of an episode of syncope that occurred this afternoon. The patient states she was sitting on her recliner when she suddenly felt weak, lightheaded and passed out for about 2 minutes. The patient's states patient appeared to be confused for 5 min after regaining consciousness but returned to her normal baseline afterwards. Prodromal sx of dizziness/subjective fever and chills, now back to baseline. The patient states she endorses associated symptoms of fevers, chills , dizziness, headache, and generalized weakness beginning yesterday, where she has lack of energy and generalized malaise. The patient denies any head trauma , numbness or tingling. The patient denies chest pain and palpitation. Denies any sick contact, nausea and vomit. Allergies: Penicillins, Sulfa Past Surgical History: Hysterectomy and bilateral rotator cuff surgery Past Social History: Denies alcohol, drugs, and smoking PCP: Kasie Mccoy Neurologist Dr. Loyd Past History - Past Medical History Allergies/Adverse Reactions: Allergies Allergy/AdvReac Type Severity Reaction Status Date / Time Penicillins Allergy Verified 11/14/17 13:50 Sulfa (Sulfonamide Allergy Verified 11/14/17 13:50 Antibiotics) Home Medications: Ambulatory Orders Escitalopram Oxalate [Lexapro -] 10 mg PO DAILY 02/22/16 Furosemide [Lasix] 40 mg PO DAILY 02/22/16 Lisinopril [Prinivil] 10 mg PO DAILY 02/22/16 Oxycodone HCl/Acetaminophen [Percocet 5-325 mg Tablet] 1 - 2 tab PO HS 02/22/16 Pramipexole Dihydrochloride [Mirapex -] 0.375 mg PO BID 08/13/17 Pramipexole Dihydrochloride [Mirapex -] 1.5 mg PO HS 08/13/17 Celecoxib [Celebrex -] 200 mg PO DAILY #7 capsule 08/15/17 CVA: No COPD: No Diabetes: Yes HTN: Yes Psychiatric Problems: Yes - Surgical History Abdominal Surgery: Yes Orthopedic Surgery: Yes (ramirez rotater cuff sx) - Immunization History Immunization Up to Date: Yes - Suicide/Smoking/Psychosocial Hx Smoking History: Never smoked Have you smoked in the past 12 months: No Information on smoking cessation initiated: No Hx Alcohol Use: No Drug/Substance Use Hx: No Substance Use Type: None Hx Substance Use Treatment: No Review of Systems - Review of Systems Able to Perform ROS?: Yes Comments:: 11/14/17 16:38 GENERAL/CONSTITUTIONAL: (+)fever (+) weakness. No sweats. HEAD, EYES, EARS, NOSE AND THROAT: No change in vision or hearing. No ear pain or discharge. No sore throat or mouth pain. No difficulty swallowing. No congestion. CARDIOVASCULAR: No chest pain or palpitations, +peripheral edema and +syncope. RESPIRATORY: (+) SOB (+)cough. No wheezing, or hemoptysis. GASTROINTESTINAL: (+) abdominal pain. No nausea/vomiting. No diarrhea or constipation. No bloody stools. GENITOURINARY: No hematuria, dysuria, frequency, urgency or other changes. MUSCULOSKELETAL:(+) lower extremity swelling, chronic venous stasis.. No joint pain . No neck or back pain. SKIN: venous stasis changes in BLE NEUROLOGIC: (+)headache, (+) loss of consciousness, No vertigo, or change in strength/sensation. No gait instability. HEMATOLOGIC/LYMPHATIC: No anemia, easy bruising/bleeding, or history of blood clots. ALLERGIC/IMMUNOLOGIC: No allergies All other systems reviewed and negative, or as documented in HPI. 11/14/17 16:55 *Physical Exam - Vital Signs Last Vital Signs Temp Pulse Resp BP Pulse Ox 102.7 F H 113 H 16 151/54 L 98 11/14/17 13:32 11/14/17 13:32 11/14/17 13:32 11/14/17 13:32 11/14/17 13:32 - Physical Exam Comments: 11/14/17 17:22 General: malaised appearing HEENT: NCAT, PERRL, EOMI, clear conjunctiva, anicteric, +dry mucus membranes, clear oropharynx, no oral lesions.. Neck: neck supple, FROM Resp: CTAB, normal and even respirations, no respiratory distress CVS: +tachycardic, no murmurs, 2+ peripheral pulses throughout, +peripheral edema with chronic lymphedema and erythematous/warmth Abdomen: soft, +RLQ tenderness. morbidly obese. no CVAT. Back: nontender, normal inspection and ROM MSK: +peripheral edema, JAUREGUI x4, ROM intact. No clubbing or cyanosis. normal bulk and tone. Neuro: alert, oriented appropriately; no focal neurologic deficits Skin: very warm to touch, moist skin and well perfused, cap refill <2 sec, + erythema to BLE with warmth and tenderness, chronic lymphedema Heart Score/ECG Review - ECG Impressions Comment:: 11/14/17 16:57 EKG sinus tachycardia, no interval abnormalities, narrow QRS, ST and T wave segments and morphology normal. Nonspecific T wave abnormalities ED Treatment Course - LABORATORY CBC & Chemistry Diagram: 11/14/17 14:23 11/14/17 14:23 Medical Decision Making - Medical Decision Making 11/14/17 17:15 A/P: Mrs Bautista 67 year old female, with a significant PMH of HTN, pre diabetic , chronic dermatitis with lymphedema, restless leg syndrome, and fibromyalgia, who presents to the emergency department for evaluation of an episode of syncope , with increased malaise and weakness x today, fever and chills. DDx abdominal pain: GERD, PUD, esophageal spasm, pancreatitis, hepatitis, constipation, colitis, gastroenteritis, cholecystitis, UTI, pyelonephritis, hernia, appendicitis, diverticulitis, sepsis/severe sepsis, cellulitis, bacteremia. electrolyte derangements/metabolic derangement. Vital signs reviewed, +fever, tachycardia. normotensive. repeat VS improved, still febrile, tachycardia improving. Infection Plan: CBC, CMP, UA, urine cx, blood cx, lactic acid, ECG, trop, CXR. resuscitative IVF x 2 liters, antipyretics, analgesia, IV abx vancomycin/ cefepime (pcn allergy, hives reaction). Prior notes reviewed, including admissions, discharges and consultations. laboratory results and imaging reviewed, basic labs and lytes notable for significant leukocytosis >17.9K with neutrophilic shift, lactic acidosis. lytes and Cr normal. no acidosis. blood cultures and urine culture pending. EKG normal sinus rhythm, no interval abnormalities, narrow QRS, ST and T wave segments and morphology normal. Nonspecific T wave abnormalities CT a/p to r/o appy, as she does have RLQ tenderness. LE cellulitis superimposed on lymphedema present and possible given broad spectrum abx already repeat lactic, monitoring VS Admit to hospitalist for severe sepsis likely 2/2 leg cellulitis/chronic lymphedema, hydration, supportive care and f/u cultures to ID source.. Discussed results and management plan with pt and family member at bedside, agree with impression and plan 11/15/17 08:17 *DC/Admit/Observation/Transfer Diagnosis at time of Disposition: Cellulitis, Restless leg syndrome, Severe sepsis, Lactic acidosis - Discharge Dispostion Condition at time of disposition: Guarded Decision to Admit order: Yes Decision to Admit order Date/Time: 11/14/17 17:25 Decision to Admit Order Category Date Time Status Decision to Admit to Hospital Routine Admission 11/14/17 14:53 Active - Referrals - Patient Instructions - Post Discharge Activity - Attestations Physician Attestion: 11/14/17 13:55 I, Laura Reyes MD, attest that this document has been prepared under my direction and personally reviewed by me in its entirety. I further attest, that it accurately reflects all work, treatment, procedures and medical decision -making performed by me.
[2017-11-14] MEDS ORDERED: ACETAMINOPHEN 1000 MG/100 ML VIAL (NON FORMULARY) IVPB ONE (13:57)
[2017-11-14] MEDS ORDERED: SODIUM CHLORIDE 0.9% 500 ML INFUS.BAG IV ONE (14:24)
[2017-11-14 14:39] LABS: BASO % 0.4 % (0-2.0); EOS % 0.8 % (0-4.5); HEMATOCRIT 34.3 % (32.4-45.2); LYMPH % 3.4 % (8-40); MCH 25.8 pg (25.7-33.7); MCHC 32.2 g/dl (32.0-36.0); MEAN CELL VOLUME 80.2 fl (80-96); MEAN PLT VOLUME 9.4 fl (7.5-11.1); MONO % 2.4 % (3.8-10.2); PLATELET COUNT 224 K/MM3 (134-434); RBC 4.28 M/mm3 (3.60-5.2); RDW 15.5 % (11.6-15.6); WHITE BLOOD COUNT 17.9 K/mm3 (4.0-10.0)
[2017-11-14] MEDS ORDERED: VANCOMYCIN 1,750 MG in DEXTROSE 5%-WATER - 250 ML IVPB ONE (14:49)
[2017-11-14] MEDS ORDERED: ACETAMINOPHEN INJECTION 100 ML IVPB ONE (14:49)
[2017-11-14] MEDS ORDERED: CEFEPIME HCL/D5W 1 GM/50 ML BAG IVPB ONE (14:50)
[2017-11-14 14:52] LABS: INR 1.08 (0.83-1.09); PROTHROMBIN TIME (PATIENT) 12.7 SEC (9.7-13.0)
[2017-11-14 15:07] LABS: VENOUS PC02 35.2 mmHg (38-52); VENOUS PH 7.46 (7.32-7.42)
[2017-11-14 15:16] LABS: ALBUMIN 3.1 g/dl (3.4-5.0); ALK PHOS 78 U/L (45-117); ANION GAP 8 MMOL/L (8-16); BILIRUBIN,TOTAL 0.5 mg/dL (0.2-1); BLOOD UREA NITROGEN 24 mg/dL (7-18); CALCIUM 8.2 mg/dL (8.5-10.1); CHLORIDE 103 mmol/L (98-107); CO2 26 mmol/L (21-32); CREATININE 1.1 mg/dL (0.55-1.3); GLUCOSE,RANDOM 141 mg/dL (74-106); POTASSIUM 4.3 mmol/L (3.5-5.1); SGOT/AST 18 U/L (15-37); SGPT/ALT 14 U/L (13-61); SODIUM 137 mmol/L (136-145); TOT PROT 7.1 g/dl (6.4-8.2)
[2017-11-14] MEDS ORDERED: morphine SULFATE 4 MG/ML VIAL ONE ×2 (18:25→20:26)
[2017-11-14] MEDS ORDERED: VANCOMYCIN 1,000 MG in DEXTROSE 5%-WATER - 250 ML IVPB SCH (18:30)
[2017-11-14] MEDS ORDERED: SODIUM CHLORIDE 1,000 ML IV SCH ×2 (18:30→23:14)
[2017-11-14] MEDS ORDERED: morphine CARPU-JECT 4 MG/1 ML DISP.SYRIN IVPUSH ONE (18:41)
[2017-11-14] MEDS ORDERED: morphine SULFATE 4 MG/ML VIAL IVPUSH ONE (18:41)
[2017-11-14] MEDS ORDERED: ACETAMINOPHEN 325 MG TABLET (FP) PO ONE (18:42)
--- NOTE | 2017-11-14 18:56 | HP ---
CHIEF COMPLAINT: Loss of consciousness PCP: Dr. Kasie Mccoy HISTORY OF PRESENT ILLNESS: Patient is a 67 year old female with past medical history of HTN, prediabetes, chronic dermatitis with lymphedema, restless leg syndrome, fibromyalgia, and lumbar disc herniation, presented with sudden onset loss of consciousness today. Patient was sitting down on the chair, suddenly felt lightheaded and passed out. As per who witnessed the event, patient suddenly lost consciousness for about 2 minutes. She woke up confused, but denies bowel and bladder incontinence, or tongue biting. Patient complains of severe bilateral leg pain, with right more painful than the left, that starts at the hip area and going down, describing it as if her legs are twisting. She also noted that the redness in lower legs have been increasing for the past weeks, with weeping from the skin that she puts in sanitary napkins to absorb the moisture. Patient also reports having chills for the past week. Otherwise, patient denies chest pain, SOB, palpitations, diarrhea, constipation, headache, urinary symptoms. ER course was notable for: (1)WBC 17.9 (2)Cefepime and vancomycin given (3)1 L NS given (4) CT of abdomen and pelvis done Recent Travel:denies any recent travel PAST MEDICAL HISTORY: Hypertension Pre-diabetes Chronic dermatitis Lymphedema Restless leg syndrome Fibromyalgia Disc herniation PAST SURGICAL HISTORY: -Hysterectomy -Bilateral rotator cuff surgery Social History: Smoking:nonsmoker Alcohol:non EtOH drinker Drugs: denies illicit drug use Family History: Allergies Penicillins Allergy (Verified 11/14/17 13:50) Sulfa (Sulfonamide Antibiotics) Allergy (Verified 11/14/17 13:50) HOME MEDICATIONS: Home Medications Medication Instructions Recorded Escitalopram Oxalate [Lexapro -] 10 mg PO DAILY 02/22/16 Furosemide [Lasix] 40 mg PO DAILY 02/22/16 Lisinopril [Prinivil] 10 mg PO DAILY 02/22/16 Oxycodone HCl/Acetaminophen 1 - 2 tab PO HS 02/22/16 [Percocet 5-325 mg Tablet] Pramipexole Dihydrochloride 0.375 mg PO BID 08/13/17 [Mirapex -] Pramipexole Dihydrochloride 1.5 mg PO HS 08/13/17 [Mirapex -] Celecoxib [Celebrex -] 200 mg PO DAILY #7 capsule 08/15/17 REVIEW OF SYSTEMS CONSTITUTIONAL: chills Absent: fever, diaphoresis, generalized weakness, malaise, loss of appetite, weight change HEENT: Absent: rhinorrhea, nasal congestion, throat pain, throat swelling, difficulty swallowing, mouth swelling, ear pain, eye pain, visual changes CARDIOVASCULAR: lightheadedness, peripheral edema Absent: chest pain, syncope, palpitations, irregular heart rate RESPIRATORY: Absent: cough, shortness of breath, dyspnea with exertion, orthopnea, wheezing, stridor, hemoptysis GASTROINTESTINAL: abdominal pain Absent:abdominal distension, nausea, vomiting, diarrhea, constipation, melena, hematochezia GENITOURINARY: Absent: dysuria, frequency, urgency, hesitancy, hematuria, flank pain, genital pain MUSCULOSKELETAL: Absent: myalgia, arthralgia, joint swelling, back pain, neck pain SKIN: Absent: rash, itching, pallor HEMATOLOGIC/IMMUNOLOGIC: Absent: easy bleeding, easy bruising, lymphadenopathy, frequent infections ENDOCRINE: Absent: unexplained weight gain, unexplained weight loss, heat intolerance, cold intolerance NEUROLOGIC: Absent: headache, focal weakness or paresthesias, dizziness, unsteady gait, seizure, mental status changes, bladder or bowel incontinence PSYCHIATRIC: Absent: anxiety, depression, suicidal or homicidal ideation, hallucinations. PHYSICAL EXAMINATION Vital Signs - 24 hr 11/14/17 11/14/17 11/14/17 13:32 14:35 15:47 Temperature 102.7 F H 102.0 F H Pulse Rate 113 H Pulse Rate [ 100 H Apical] Respiratory 16 20 Rate Blood Pressure 151/54 L Blood Pressure 130/44 L [Right Arm] O2 Sat by Pulse 98 100 98 Oximetry (%) 11/14/17 18:27 Temperature 99.8 F H Pulse Rate Pulse Rate [ 98 H Apical] Respiratory 18 Rate Blood Pressure Blood Pressure 101/51 L [Right Arm] O2 Sat by Pulse 98 Oximetry (%) OBJECTIVE: Last Vital Signs Temp Pulse Resp BP Pulse Ox 99.8 F H 98 H 18 101/51 L 98 11/14/17 18:27 11/14/17 18:27 11/14/17 18:27 11/14/17 18:27 11/14/17 18:27 GENERAL: Awake, alert, and fully oriented, grimacing in pain HEAD: Normal with no signs of trauma. EYES:PERRLA, EOMI, sclera anicteric, conjunctiva clear. EARS, NOSE, THROAT: Ears normal, nares patent, oropharynx clear without exudates. Moist mucous membranes. NECK: Normal range of motion, supple without lymphadenopathy, JVD, or masses. LUNGS: Breath sounds equal, clear to auscultation bilaterally. No wheezes, and no crackles. No accessory muscle use. HEART: Regular rate and rhythm, normal S1 and S2 +systolic murmur ABDOMEN: Soft,+RLQ tenderness, not distended, normoactive bowel sounds, no guarding, no rebound. MUSCULOSKELETAL: Normal range of motion at all joints. No bony deformities or tenderness. No CVA tenderness. UPPER EXTREMITIES: 2+ pulses, warm, well-perfused. No cyanosis. No clubbing. No peripheral edema. LOWER EXTREMITIES: weak pulses, warm, well-perfused. BLE: +lymphedema. +erythema , warmth, tenderness around the mid-maya to ankle area with active weeping. + calf tenderness. +tough,thickening of the skin. NEUROLOGICAL: Cranial nerves II-XII intact. Normal speech. PSYCHIATRIC: Cooperative. Good eye contact. Appropriate mood and affect. Laboratory Results - last 24 hr 11/14/17 11/14/17 11/14/17 14:23 14:23 14:23 WBC 17.9 H RBC 4.28 Hgb 11.0 Hct 34.3 MCV 80.2 MCH 25.8 MCHC 32.2 RDW 15.5 Plt Count 224 D MPV 9.4 Absolute Neuts (auto) 16.6 H Total Counted 100 Neutrophils % 93.0 H D Neutrophils % (Manual) 94.0 H* Band Neutrophils % 2.0 Lymphocytes % 3.4 L D Lymphocytes % (Manual) 2.0 L Monocytes % 2.4 L Monocytes % (Manual) 1 L Eosinophils % 0.8 Eosinophils % (Manual) 1.0 Basophils % 0.4 Basophils % (Manual) 0.0 Nucleated RBC % 0 PT with INR INR VBG pH POC VBG pCO2 POC VBG pO2 Mixed VBG HCO3 Sodium 137 Potassium 4.3 Chloride 103 Carbon Dioxide 26 Anion Gap 8 BUN 24 H Creatinine 1.1 Creat Clearance w eGFR 49.39 Random Glucose 141 H Lactic Acid Calcium 8.2 L Total Bilirubin 0.5 AST 18 ALT 14 Alkaline Phosphatase 78 Troponin I < 0.02 Total Protein 7.1 Albumin 3.1 L TSH 1.30 11/14/17 11/14/17 11/14/17 14:23 14:30 14:37 WBC RBC Hgb Hct MCV MCH MCHC RDW Plt Count MPV Absolute Neuts (auto) Total Counted Neutrophils % Neutrophils % (Manual) Band Neutrophils % Lymphocytes % Lymphocytes % (Manual) Monocytes % Monocytes % (Manual) Eosinophils % Eosinophils % (Manual) Basophils % Basophils % (Manual) Nucleated RBC % PT with INR 12.70 INR 1.08 VBG pH 7.46 H POC VBG pCO2 35.2 L POC VBG pO2 52.0 H Mixed VBG HCO3 24.5 Sodium Potassium Chloride Carbon Dioxide Anion Gap BUN Creatinine Creat Clearance w eGFR Random Glucose Lactic Acid 2.7 H* Calcium Total Bilirubin AST ALT Alkaline Phosphatase Troponin I Total Protein Albumin TSH ASSESSMENT/PLAN: Patient is a 67 year old female with past medical history of HTN, prediabetes, chronic dermatitis with lymphedema, restless leg syndrome, fibromyalgia, and lumbar disc herniation, presented with sudden onset loss of consciousness today. #Sepsis: likely 2/2 bilateral LE cellulitis -Temp 102.7, HR 113, WBC 17.9 with left shift -Received Cefepime 1gm and Vancomycin 1750mg at the ED -Will continue Cefepime q8 and Vancomycin q12. -ID consulted. -Blood cultures done. -Urinalysis with cultures and CXR ordered to rule out other sources of infection -Duplex US of b/l LE ordered to rule out DVT -IV NS @ 100ml/hr -Lactate trending down. #Syncope -likely from dehydration and infection -Trend cardiac enzymes Trop <0.02 x2 -Will treat infection for now. #Lymphedema -has been seeing record center specialist in the past. -May benefit from vascular surgeon -Will refer as oupatient. #RLQ tenderness -Patient reports to have this tenderness for a while -Previous CT - showed enlarged, but not inflamed appendix -Repeat CT of abdomen and pelvis done. Will follow-up final read. #Lactic acidosis: likely 2/2 to sepsis -2.7 --> 2.3 --> 2.1 -Trending down. -Will monitor. -IV NS given. #Restless leg syndrome -also has chronic back pain/Leg pain: likely 2/2 to disc herniation and restless leg syndrome -continue Pramipexole -Morphine 2mg q8h PRN and oxycodone 5mg q8h PRN for pain -follow-up as outpatient with Dr. Loyd #Hypertension -continue Lisinopril 10mg daily -hold Lasix for now #Pre-diabetes -Routine glucose monitoring -HbA1c -diabetic diet #Fibromyalgia -Oxycodone 5mg q8h PRN for pain #FEN -IV NS @ 100ml/hr -Electrolytes wnl, routine bmp monitoring -Protein/diabetic diet #Prophylaxis -Heparin 5000units sq tid #Disposition -admit to med-surg Visit type - Emergency Visit Emergency Visit: Yes ED Registration Date: 11/14/17 Care time: The patient presented to the Emergency Department on the above date and was hospitalized for further evaluation of their emergent condition. - New Patient This patient is new to me today: Yes Date on this admission: 11/14/17 - Critical Care Critical Care patient: No
--- NOTE | 2017-11-14 19:01 | PN ---
Teaching Attending Note Name of Resident: Scarlet Zimmerman ATTENDING PHYSICIAN STATEMENT I saw and evaluated the patient. I reviewed the resident's note and discussed the case with the resident. I agree with the resident's findings and plan as documented. SUBJECTIVE:67yo F with PMH HTN. DM, fibromyalgia, lymphedema and RLS presented to the ER after syncopizing at home. witnessed by . states she was feeling weak and lightheaded. passed out for about 2 mins and was confused as she was waking up. c/o severe B/L LE pain R>L. pain is a twisting pain. assoc with chills for the past week. states she noticed that her leg swelling and erythema has also been progressively worsening during this time with increasing weeping from the skin which shes been applying sanitary napkins on her legs to absorb all the moisture. denies Cp, SOB, fever, N/V/C/D, urinary frequency, urgency, dysuria or body aches. any sick contacts or recent abx use OBJECTIVE: Last Vital Signs Temp Pulse Resp BP Pulse Ox 99.8 F H 98 H 18 101/51 L 98 11/14/17 18:27 10 18:27 10 18:27 11/14/17 18:27 11/14/17 18:27 general mild distress due to pain HEENT no sinus tenderness CV S1 s2 RRR +murmur Lungs CTA B/L no wheeinzg/rales/rhonchi abdomen soft +RLQ tenderness no rebound or guarding. normoactive BS obese Extremities B/L circumferential erythema from mid maya to ankle. skin is warm and tender. active weeping from the R anterior maya. +chrissy sign in both legs unable to assess dorsal pulse. chronic skin changes. +swelling. thickening of the skin ASSESSMENT AND PLAN: 67yo F with PMH HTN. DM, fibromyalgia, lymphedema and RLS presented to the ER after syncopizing at home and found to have severe sepsis due to B/L LE cellulitis 1. Severe sepsis due to B/L LE cellulitis- Medicine admission. Tm 102.7 and tachycardia with Leukocytosis with left shift. start on NS at 100cc/H. received vanco/cefepime in the ER. repeat lactate. will obtain doppler to r/o dvt due to swelling and tenderness although low suspicion. ID consult. Allergy to PCN and sulfa noted. f/u Cx. pain control 2. RLQ tenderness- states she has had this chronic pain for several years. CT abdomen/pelvis done. will f/u results 3. Syncope- was likley due to dehydration and sepsis. will treat the infection at this time 4. HTN- hold antihypertensives at this time. slowly re-start as needed 5. DM- diet controlled. cont diabetic diet 6. RLS- cont home medications. has appt this month with neurologist 7. Lymphedema- does not have vascular surgeon. encouraged to f/u with as outpatient. may be candidate for therapy 8. DVT ppx- hep sq
[2017-11-14] MEDS: MORPHINE SULFATE 2 MG/ML VIAL IVPUSH PRN (20:30)
[2017-11-14] MEDS ORDERED: PRAMIPEXOLE DIHYDROCHLORIDE 0.5 MG TABLET PO SCH (22:00)
[2017-11-14] MEDS ORDERED: CEFEPIME 1 GM in DEXTROSE 5%-WATER - 50 ML IVPB ONE (23:00)
[2017-11-14] MEDS ORDERED: CEFEPIME HCL 1 GM VIAL (RESTRICTED TO ID) ONE (23:14)
[2017-11-14] MEDS: oxyCODONE HCL 5 MG TABLET PO PRN (23:17)
[2017-11-14] MEDS: HEPARIN NA (PORCINE) 5,000 UNITS/ML 1ML VIAL SQ SCH (23:19)
[2017-11-14] MEDS: PRAMIPEXOLE DIHYDROCHLORIDE 1.5 MG TABLET PO SCH (23:19)
[2017-11-15] MEDS ORDERED: CEFEPIME HCL/D5W 1 GM/50 ML BAG IVPB SCH (02:00)
[2017-11-15] MEDS ORDERED: VANCOMYCIN 1,000 MG in DEXTROSE 5%-WATER - 250 ML IVPB SCH (03:00)
[2017-11-15 05:24] VITALS: BMI 52.4
[2017-11-15] MEDS: MORPHINE SULFATE 2 MG/ML VIAL IVPUSH PRN ×3 (05:26→20:32)
[2017-11-15] MEDS: HEPARIN NA (PORCINE) 5,000 UNITS/ML 1ML VIAL SQ SCH ×3 (05:54→21:09)
[2017-11-15] MEDS ORDERED: PRAMIPEXOLE DIHYDROCHLORIDE 0.25 MG TABLET PO SCH (06:00)
[2017-11-15] MEDS: PRAMIPEXOLE DIHYDROCHLORIDE PO SCH ×2 (06:07→13:56)
[2017-11-15] MEDS: ACETAMINOPHEN 325 MG TABLET (FP) PO PRN ×2 (07:47→16:52)
[2017-11-15 08:23] LABS: BASO % 0.5 % (0-2.0); EOS % 2.5 % (0-4.5); HEMATOCRIT 29.3 % (32.4-45.2); HEMOGLOBIN 9.3 GM/dL (10.7-15.3); LYMPH % 10.6 % (8-40); MCH 25.6 pg (25.7-33.7); MCHC 31.9 g/dl (32.0-36.0); MEAN CELL VOLUME 80.4 fl (80-96); MEAN PLT VOLUME 9.5 fl (7.5-11.1); MONO % 4.5 % (3.8-10.2); NEUT % 81.9 % (42.8-82.8); PLATELET COUNT 184 K/MM3 (134-434); RBC 3.65 M/mm3 (3.60-5.2); WHITE BLOOD COUNT 15.2 K/mm3 (4.0-10.0)
[2017-11-15 08:50] LABS: ALBUMIN 2.7 g/dl (3.4-5.0); ALK PHOS 67 U/L (45-117); ANION GAP 6 MMOL/L (8-16); BILIRUBIN,TOTAL 0.9 mg/dL (0.2-1); BLOOD UREA NITROGEN 26 mg/dL (7-18); CALCIUM 8.3 mg/dL (8.5-10.1); CHLORIDE 102 mmol/L (98-107); CO2 29 mmol/L (21-32); CREATININE 1.1 mg/dL (0.55-1.3); GLUCOSE,RANDOM 88 mg/dL (74-106); MAGNESIUM 2.4 mg/dL (1.8-2.4); POTASSIUM 4.4 mmol/L (3.5-5.1); SGOT/AST 15 U/L (15-37); SGPT/ALT 12 U/L (13-61); SODIUM 137 mmol/L (136-145); TOT PROT 6.3 g/dl (6.4-8.2)
[2017-11-15] MEDS ORDERED: FLU VACCINE QUAD 60 MCG/0.5 ML (MDV 18-19) IM ONE (10:00)
[2017-11-15] MEDS ORDERED: PT OWN MED DRAWER 7, Y5N ONE ×2 (10:07→21:07)
[2017-11-15] MEDS: LISINOPRIL 10 MG TABLET (FP) PO SCH (10:09)
[2017-11-15] MEDS: ESCITALOPRAM OXALATE 10 MG TABLET (FP) PO SCH (10:09)
--- NOTE | 2017-11-15 10:53 | PN ---
Progress Note (short form) - Note Progress Note: c/o pain but much improved since yesterday. states swelling has also improved and that the LLE now appears like her baseline. denies CP, SOB, fever, chills, N /V/C/D Current Medications Generic Name Dose Route Start Last Admin Trade Name Freq PRN Reason Stop Dose Admin Acetaminophen 650 mg 11/15/17 06:11 11/15/17 07:47 Tylenol - PO 650 mg Q6H PRN Administration Fever Or Pain Escitalopram Oxalate 10 mg 11/15/17 10:00 11/15/17 10:09 Lexapro - PO 10 mg DAILY DEXTER Administration Heparin Sodium (Porcine) 5,000 unit 11/14/17 22:00 11/15/17 05:54 Heparin - SQ 5,000 unit TID DEXTER Administration Vancomycin HCl 1,000 mg/ 250 mls @ 150 mls/hr 11/15/17 03:00 Dextrose IVPB BID@0300,1500 DEXTER Protocol Cefepime HCl 1 gm/ Dextrose 50 mls @ 100 mls/hr 11/15/17 02:00 IVPB Q8H-IV DEXTER Protocol Sodium Chloride 1,000 mls @ 100 mls/hr 11/14/17 23:14 11/14/17 23:18 Normal Saline - IV Not Given ASDIR DEXTER Lisinopril 10 mg 11/15/17 10:00 11/15/17 10:09 Prinivil PO 10 mg DAILY DEXTER Administration Morphine Sulfate 2 mg 11/14/17 23:00 11/15/17 05:26 Morphine Sulfate IVPUSH 2 mg Q6H PRN Administration PAIN LEVEL 7 - 10 Oxycodone HCl 5 mg 11/14/17 18:48 11/14/17 23:17 Roxicodone - PO 5 mg Q8H PRN Administration PAIN LEVEL 7 - 10 Pramipexole Dihydrochloride 1.5 mg 11/14/17 23:00 11/14/17 23:19 Mirapex - PO Not Given HS DEXTER Pramipexole Dihydrochloride 0. 0.375 mg 11/15/17 06:00 11/15/17 06:07 25 mg/ Pramipexole PO 0.375 mg Dihydrochloride 0.125 mg BID@0600,1400 DEXTER Administration Last Vital Signs Temp Pulse Resp BP Pulse Ox 100.7 F H 75 20 101/61 97 11/15/17 06:00 11/15/17 06:00 11/15/17 06:00 11/15/17 06:00 11/15/17 06:10 general NAD Extremities RLE cicumferential eythema from knee to ankle, hot, slightly tender and swollen with active serous drainage. LLE is erythematous but no longer warm or tender. +lymphedema CBCD WBC 15.2 K/mm3 (4.0-10.0) H 11/15/17 07:15 RBC 3.65 M/mm3 (3.60-5.2) 11/15/17 07:15 Hgb 9.3 GM/dL (10.7-15.3) L 11/15/17 07:15 Hct 29.3 % (32.4-45.2) L 11/15/17 07:15 MCV 80.4 fl (80-96) 11/15/17 07:15 MCHC 31.9 g/dl (32.0-36.0) L 11/15/17 07:15 RDW 16.0 % (11.6-15.6) H 11/15/17 07:15 Plt Count 184 K/MM3 (134-434) 11/15/17 07:15 MPV 9.5 fl (7.5-11.1) 11/15/17 07:15 CMP Sodium 137 mmol/L (136-145) 11/15/17 07:15 Potassium 4.4 mmol/L (3.5-5.1) 11/15/17 07:15 Chloride 102 mmol/L (98-107) 11/15/17 07:15 Carbon Dioxide 29 mmol/L (21-32) 11/15/17 07:15 Anion Gap 6 MMOL/L (8-16) L 11/15/17 07:15 BUN 26 mg/dL (7-18) H 11/15/17 07:15 Creatinine 1.1 mg/dL (0.55-1.3) 11/15/17 07:15 Creat Clearance w eGFR 49.39 (>60) 11/15/17 07:15 Calcium 8.3 mg/dL (8.5-10.1) L 11/15/17 07:15 Total Bilirubin 0.9 mg/dL (0.2-1) 11/15/17 07:15 AST 15 U/L (15-37) 11/15/17 07:15 ALT 12 U/L (13-61) L 11/15/17 07:15 Alkaline Phosphatase 67 U/L (45-117) 11/15/17 07:15 Total Protein 6.3 g/dl (6.4-8.2) L 11/15/17 07:15 Albumin 2.7 g/dl (3.4-5.0) L 11/15/17 07:15 ASSESSMENT AND PLAN: 67yo F with PMH HTN. DM, fibromyalgia, lymphedema and RLS presented to the ER after syncopizing at home and found to have severe sepsis due to B/L LE cellulitis 1. Severe sepsis due to B/L LE cellulitis- Tm 102. clinically improved. lactic acidosis resolved. on cefepime/Vanco day 2. ID consulted. F/u Cx. 2. RLQ tenderness- pain is stable. CT not showing any acute pathology 3. Normocytic anemia- liekly dilutional. no signs of bleeding. no indication for transfusion. will trend hgb. check iron studies. last colonoscopy was more than 10 years ago and was normal per pt 4. Syncope- was likley due to dehydration and sepsis. no repeat episodes. monitor 5. HTN- controlled. re-start lisinopril. would hold diuretic 6. DM- diet controlled. cont diabetic diet 7. RLS- cont home medications. has appt this month with neurologist 8. Lymphedema- does not have vascular surgeon. encouraged to f/u with as outpatient. may be candidate for therapy 9. DVT ppx- hep sq 10. spoke with present at bedside. all questions answered. verbalized understanding Visit type - Emergency Visit Emergency Visit: Yes ED Registration Date: 11/14/17 Care time: The patient presented to the Emergency Department on the above date and was hospitalized for further evaluation of their emergent condition. - New Patient This patient is new to me today: No - Critical Care Critical Care patient: No - Discharge Referral Referred to [facility] No
--- NOTE | 2017-11-15 12:11 | CONSULT ---
Consult Consult Specialty:: General Surgery - Past Medical History Cardio/Vascular: Yes: Aortic Stenosis (followe dby Dr Angel Isaac), HTN, Hyperlipdemia, Other (edema/lymohedema -. lasix bid) ...: No Musculoskeletal: Yes: Other (dermatitis) Rheumatology: Yes: Fibromyalgia Endocrine: Yes: Diabetes Mellitus - Past Surgical History Past Surgical History: Yes: , Hysterectomy - Alcohol/Substance Use Hx Alcohol Use: No - Smoking History Smoking history: Never smoked Have you smoked in the past 12 months: No - Social History Usual Living Arrangement: With Spouse Home Medications - Allergies Allergies/Adverse Reactions: Allergies Allergy/AdvReac Type Severity Reaction Status Date / Time Penicillins Allergy Verified 11/14/17 13:50 Sulfa (Sulfonamide Allergy Verified 11/14/17 13:50 Antibiotics) - Home Medications Home Medications: Ambulatory Orders Escitalopram Oxalate [Lexapro -] 10 mg PO DAILY 02/22/16 Furosemide [Lasix] 40 mg PO DAILY 02/22/16 Lisinopril [Prinivil] 10 mg PO DAILY 02/22/16 Oxycodone HCl/Acetaminophen [Percocet 5-325 mg Tablet] 1 - 2 tab PO HS 02/22/16 Pramipexole Dihydrochloride [Mirapex -] 0.375 mg PO BID 08/13/17 Pramipexole Dihydrochloride [Mirapex -] 1.5 mg PO HS 08/13/17 Celecoxib [Celebrex -] 200 mg PO DAILY #7 capsule 08/15/17 Physical Exam Vital Signs: Vital Signs Temperature 100.7 F H 11/15/17 06:00 Pulse Rate 75 11/15/17 06:00 Respiratory Rate 20 11/15/17 06:00 Blood Pressure 101/61 11/15/17 06:00 O2 Sat by Pulse Oximetry (%) 97 11/15/17 06:10 Labs: CBC, BMP 11/15/17 07:15 11/15/17 07:15
[2017-11-15] MEDS ORDERED: diphenhydrAMINE HCL 25 MG CAPSULE (FP) PO PRN (12:37)
--- NOTE | 2017-11-15 14:27 | CON.ID ---
Consult Consult Specialty:: infectious disease Referred by:: hospitalist Reason for Consultation:: celulitis, fever - History of Present Illness Chief Complaint: syncope History of Present Illness: passed out while sitting in recliner at home 3 days of fevers, chills, shivering bilateral leg erythema and swellling no cough no nausea or vomiting no dysuria no pets no travel no sick contacts ct scan in ed - adenopathy- nonspecific duplex- negative abdominal pain has resolved, had a bm today reports has seen multiple specialists for chronic leg swelling nothing has worked elevated lactic acid and wbc in ed along with fevers pen allergy, itching, tolerates cephalsporins - History Source History Provided By: Patient, Medical Record Limitations to Obtaining History: No Limitations - Past Medical History Cardio/Vascular: Yes: Aortic Stenosis (followe dby Dr Angel Isaac), HTN, Hyperlipdemia, Other (edema/lymohedema -. lasix bid) ...: No Musculoskeletal: Yes: Other (dermatitis) Rheumatology: Yes: Fibromyalgia Endocrine: Yes: Diabetes Mellitus - Past Surgical History Past Surgical History: Yes: , Hysterectomy Additional Surgical History: bilateral rotator cuff surgery - Alcohol/Substance Use Hx Alcohol Use: No - Smoking History Smoking history: Never smoked Have you smoked in the past 12 months: No - Social History Usual Living Arrangement: With Spouse ADL: Independent Place of : [facility] History of Recent Travel: No Home Medications - Allergies Allergies/Adverse Reactions: Allergies Allergy/AdvReac Type Severity Reaction Status Date / Time Penicillins Allergy Verified 11/14/17 13:50 Sulfa (Sulfonamide Allergy Verified 11/14/17 13:50 Antibiotics) - Home Medications Home Medications: Ambulatory Orders Escitalopram Oxalate [Lexapro -] 10 mg PO DAILY 02/22/16 Furosemide [Lasix] 40 mg PO DAILY 02/22/16 Lisinopril [Prinivil] 10 mg PO DAILY 02/22/16 Oxycodone HCl/Acetaminophen [Percocet 5-325 mg Tablet] 1 - 2 tab PO HS 02/22/16 Pramipexole Dihydrochloride [Mirapex -] 0.375 mg PO BID 08/13/17 Pramipexole Dihydrochloride [Mirapex -] 1.5 mg PO HS 08/13/17 Celecoxib [Celebrex -] 200 mg PO DAILY #7 capsule 08/15/17 Family Disease History - Family Disease History Family History: Denies Review of Systems - Review of Systems Constitutional: reports: Chills, Fever Eyes: reports: No Symptoms HENT: reports: No Symptoms Neck: reports: No Symptoms Cardiovascular: reports: Edema. denies: Chest Pain Respiratory: denies: Cough Gastrointestinal: denies: Abdominal Pain Genitourinary: reports: No Symptoms Musculoskeletal: reports: Joint Pain (bilateral knee) Physical Exam Vital Signs: Vital Signs Temperature 100.7 F H 11/15/17 06:00 Pulse Rate 75 11/15/17 06:00 Respiratory Rate 20 11/15/17 06:00 Blood Pressure 101/61 11/15/17 06:00 O2 Sat by Pulse Oximetry (%) 97 11/15/17 06:10 Constitutional: Yes: Well Nourished, No Distress Eyes: Yes: Conjunctiva Clear HENT: Yes: Atraumatic, Normocephalic Neck: Yes: Supple Cardiovascular: Yes: Regular Rate and Rhythm Respiratory: Yes: Regular, CTA Bilaterally Gastrointestinal: Yes: Normal Bowel Sounds, Soft Extremities: Yes: Erythema, Other (bilateral erythema and edema, venous stasis, +warmth) Edema: LLE: 1+, RLE: 1+ Psychiatric: Yes: Alert, Oriented Labs: CBC, BMP 11/15/17 07:15 11/15/17 07:15 Imaging - Results Chest X-ray: Report Reviewed, Image Reviewed Cat Scan: Report Reviewed (adenopathy noted) Ultrasound: Report Reviewed (negative) Problem List - Problems (1) Severe sepsis Code(s): A41.9 - SEPSIS, UNSPECIFIED ORGANISM; R65.20 - SEVERE SEPSIS WITHOUT SEPTIC SHOCK (2) Lactic acidosis Code(s): E87.2 - ACIDOSIS (3) Cellulitis Code(s): L03.90 - CELLULITIS, UNSPECIFIED (4) Syncope Code(s): R55 - SYNCOPE AND COLLAPSE (5) Obesity Code(s): E66.9 - OBESITY, UNSPECIFIED (6) Allergy to multiple antibiotics Code(s): Z88.1 - ALLERGY STATUS TO OTHER ANTIBIOTIC AGENTS STATUS Assessment/Plan suspect sepsis secondary to cellulitis both legs vancomycin/rocephin f/u blood cultures anemia nonspecific adenopathy on ct scan- will need outpt f/u with her PMD check ldh
[2017-11-15] MEDS ORDERED: VANCOMYCIN 1,500 MG in DEXTROSE 5%-WATER - 500 ML IVPB SCH (14:30)
[2017-11-15] MEDS: CEFEPIME 1 GM in DEXTROSE 5%-WATER - 50 ML IVPB SCH (14:55)
[2017-11-15] MEDS ORDERED: DEXTROSE 5%-WATER 100 ML IVPB ONE (14:58)
[2017-11-15] MEDS: CEFTRIAXONE 2 GM in DEXTROSE 5%-WATER 100 ML IVPB SCH (15:03)
[2017-11-15] MEDS: LACTOBACILLUS ACIDOPHILUS 1 TABLET PO SCH (16:49)
[2017-11-15] MEDS: oxyCODONE HCL 5 MG TABLET PO PRN (16:53)
--- NOTE | 2017-11-15 17:12 | EKG ---
Test Reason : Blood Pressure : / mmHG Vent. Rate : 115 BPM Atrial Rate : 115 BPM P-R Int : 152 ms QRS Dur : 094 ms QT Int : 328 ms P-R-T Axes : 067 -04 041 degrees QTc Int : 453 ms SINUS TACHYCARDIA POSSIBLE LEFT ATRIAL ENLARGEMENT POOR R WAVE PROGRESSION ABNORMAL ECG WHEN COMPARED WITH ECG OF 22-FEB-2016 07:57, NOTE PRESENSE OF POOR R-WAVE PROGRESSION Confirmed by VANESA STRONG, LUISITO ([id number]) on 11/15/2017 5:12:27 PM Referred By: Confirmed By:LUISITO ALEXIS MD
[2017-11-15] MEDS: PRAMIPEXOLE DIHYDROCHLORIDE 1.5 MG TABLET PO SCH (21:09)
[2017-11-16] MEDS: oxyCODONE HCL 5 MG TABLET PO PRN ×2 (00:50→22:54)
[2017-11-16] MEDS: PRAMIPEXOLE DIHYDROCHLORIDE PO SCH ×2 (05:54→14:29)
[2017-11-16] MEDS: HEPARIN NA (PORCINE) 5,000 UNITS/ML 1ML VIAL SQ SCH ×3 (05:54→22:07)
[2017-11-16] MEDS: MORPHINE SULFATE 2 MG/ML VIAL IVPUSH PRN (05:56)
--- NOTE | 2017-11-16 07:51 | PN ---
Physical Exam: SUBJECTIVE: Patient seen and examined this AM. She states that her legs are better than yesterday. Says she wants to get her legs under control so she can resume a somewhat normal life. OBJECTIVE: Vital Signs Period Temp Pulse Resp BP Sys/Garcia Pulse Ox Last 24 Hr 98.4 F-99.4 F 76-99 18-20 116-141/54-65 97 GENERAL: A&O, morbidly obese, no acute distress HEAD: Normocephalic, atraumatic. EYES: PERRL, no scleral icterus EARS, NOSE, THROAT: oropharynx clear without exudates. Moist mucous membranes. NECK: supple without lymphadenopathy LUNGS: CTA b/l, no crackles or wheezes HEART: Regular rate and rhythm, normal S1 and S2 without murmur ABDOMEN: Soft, nontender to palpation, normoactive bowel sounds MUSCULOSKELETAL: No bony deformities or tenderness. EXTREMITIES: 2+ pulses, warm, well-perfused. B/l 4+ pitting edema with erythema and warmth more so on the RLE NEUROLOGICAL: Cranial nerves II-XII grossly intact. Normal speech. PSYCHIATRIC: Cooperative. Good eye contact. Appropriate mood and affect. Laboratory Results - last 24 hr 11/15/17 11/15/17 11/15/17 07:15 07:15 07:15 WBC 15.2 H RBC 3.65 Hgb 9.3 L Hct 29.3 L MCV 80.4 MCH 25.6 L MCHC 31.9 L RDW 16.0 H Plt Count 184 MPV 9.5 Absolute Neuts (auto) 12.4 H Neutrophils % 81.9 Lymphocytes % 10.6 D Monocytes % 4.5 D Eosinophils % 2.5 D Basophils % 0.5 Nucleated RBC % 0 Sodium 137 Potassium 4.4 Chloride 102 Carbon Dioxide 29 Anion Gap 6 L BUN 26 H Creatinine 1.1 Creat Clearance w eGFR 49.39 Random Glucose 88 Lactic Acid 0.8 Calcium 8.3 L Phosphorus 3.0 Magnesium 2.4 Total Bilirubin 0.9 AST 15 ALT 12 L Alkaline Phosphatase 67 Total Protein 6.3 L Albumin 2.7 L Active Medications Generic Name Dose Route Start Last Admin Trade Name Freq PRN Reason Stop Dose Admin Acetaminophen 650 mg 11/15/17 06:11 11/15/17 16:52 Tylenol - PO 650 mg Q6H PRN Administration Fever Or Pain Diphenhydramine HCl 25 mg 11/15/17 12:37 11/15/17 12:58 Benadryl - PO 25 mg Q6H PRN Administration FOR ITCHING Escitalopram Oxalate 10 mg 11/15/17 10:00 11/15/17 10:09 Lexapro - PO 10 mg DAILY DEXTER Administration Heparin Sodium (Porcine) 5,000 unit 11/14/17 22:00 11/16/17 05:54 Heparin - SQ 5,000 unit TID DEXTER Administration Ceftriaxone Sodium 2 gm/ 100 mls @ 200 mls/hr 11/15/17 14:30 11/15/17 15:03 Dextrose IVPB 200 mls/hr DAILY DEXTER Administration Protocol Vancomycin HCl 1,500 mg/ 500 mls @ 250 mls/hr 11/15/17 14:30 11/15/17 16:49 Dextrose IVPB 250 mls/hr Q24H DEXTER Administration Protocol Lactobacillus Acidophilus 1 tab 11/15/17 16:15 11/15/17 16:49 Bacid - PO 1 tab DAILY DEXTER Administration Lisinopril 10 mg 11/15/17 10:00 11/15/17 10:09 Prinivil PO 10 mg DAILY DEXTER Administration Morphine Sulfate 2 mg 11/14/17 23:00 11/16/17 05:56 Morphine Sulfate IVPUSH 2 mg Q6H PRN Administration PAIN LEVEL 7 - 10 Oxycodone HCl 5 mg 11/14/17 18:48 11/16/17 00:50 Roxicodone - PO 5 mg Q8H PRN Administration PAIN LEVEL 7 - 10 Pramipexole Dihydrochloride 1.5 mg 11/14/17 23:00 11/15/17 21:09 Mirapex - PO 1.5 mg HS DEXTER Administration Pramipexole Dihydrochloride 0. 0.375 mg 11/15/17 06:00 11/16/17 05:54 25 mg/ Pramipexole PO 0.375 mg Dihydrochloride 0.125 mg BID@0600,1400 DEXTER Administration ASSESSMENT/PLAN: 67 year old female with past medical history of HTN, prediabetes, chronic dermatitis with lymphedema, restless leg syndrome, fibromyalgia, and lumbar disc herniation admitted with fevers, chills and an episode of witnessed LOC w/ o trauma at home. Sepsis secondary to B/L LE Cellulitis -Predisposed to cellulitis given chronic dermatits and lymphedema -ID consult appreciated -Vanc/Ceftrixone d/c and Ceftaroline 600 mg IV BID started today, Day 3 Abx therapy -Will await ID recommendation for conversion to PO Abx Syncopal Episode -likely secondary to sepsis and dehydration, no repeat episodes during this admission HTN -Lisinopril 10 mg PO Daily Lymphedema -Pt follows with vascular surgery as outpatient, has been denied lymphedema pump in the past due to insurance refusal -Pt would benefit from lymphedema pump Fibromyalgia -Pain is controlled well with Tylenol Q6, Morphine 2 mg Q6 PRN (required once today), and Oxycodone 5 mg PO Q8 -Continue home Mirapex DVT Prophylaxis -Heparin 5000 units SQ TID FEN -Fluids: none -Electrolytes: No electrolyte abnormalities, BMP in AM -Nutrition: Diabetic Diet Disposition Med/Surg Visit type - Emergency Visit Emergency Visit: Yes ED Registration Date: 11/14/17 Care time: The patient presented to the Emergency Department on the above date and was hospitalized for further evaluation of their emergent condition. - New Patient This patient is new to me today: Yes Date on this admission: 11/16/17 - Critical Care Critical Care patient: No
[2017-11-16 08:22] LABS: BASO % 0.7 % (0-2.0); EOS % 5.1 % (0-4.5); HEMATOCRIT 29.6 % (32.4-45.2); HEMOGLOBIN 9.4 GM/dL (10.7-15.3); LYMPH % 12.2 % (8-40); MCH 25.6 pg (25.7-33.7); MCHC 31.7 g/dl (32.0-36.0); MEAN CELL VOLUME 80.7 fl (80-96); MEAN PLT VOLUME 9.5 fl (7.5-11.1); MONO % 4.6 % (3.8-10.2); NEUT % 77.4 % (42.8-82.8); PLATELET COUNT 165 K/MM3 (134-434); RBC 3.67 M/mm3 (3.60-5.2); RDW 15.8 % (11.6-15.6); WHITE BLOOD COUNT 12.5 K/mm3 (4.0-10.0)
[2017-11-16] MEDS ORDERED: DEXTROSE 5%-WATER 100 ML IVPB ONE (10:15)
[2017-11-16] MEDS: CEFTRIAXONE 2 GM in DEXTROSE 5%-WATER 100 ML IVPB SCH (10:23)
[2017-11-16] MEDS: LISINOPRIL 10 MG TABLET (FP) PO SCH (10:24)
[2017-11-16] MEDS: ESCITALOPRAM OXALATE 10 MG TABLET (FP) PO SCH (10:24)
[2017-11-16] MEDS: LACTOBACILLUS ACIDOPHILUS 1 TABLET PO SCH (10:24)
--- NOTE | 2017-11-16 11:20 | PN ---
Progress Note (short form) - Note Progress Note: feels better no fevers overnight Vital Signs Period Temp Pulse Resp BP Sys/Garcia Pulse Ox Last 24 Hr 98.4 F-99.4 F 76-91 18-20 118-141/54-65 97 cor-rrr lungs clear abd soft,nt ext +edema, +erythema CBC, BMP 11/16/17 06:00 11/15/17 07:15 Microbiology 11/14/17 14:37 Blood - Peripheral Venous Blood Culture - Preliminary NO GROWTH OBTAINED AFTER 24 HOURS, INCUBATION TO CONTINUE FOR 4 DAYS. 11/14/17 14:23 Blood - Peripheral Venous Blood Culture - Preliminary NO GROWTH OBTAINED AFTER 24 HOURS, INCUBATION TO CONTINUE FOR 4 DAYS. a/p severe cellulitis of the legs improving temperature curve and wbc, blood cultures are negative she reports seiing a vascular surgeon at [facility] and being told she had lymphedema- insurance would not pay for the lymphedema machine at that time pen /sulfa allergy nares swab for MRSA switch to ceftaroline Problem List - Problems (1) Severe sepsis Code(s): A41.9 - SEPSIS, UNSPECIFIED ORGANISM; R65.20 - SEVERE SEPSIS WITHOUT SEPTIC SHOCK (2) Lactic acidosis Code(s): E87.2 - ACIDOSIS (3) Cellulitis Code(s): L03.90 - CELLULITIS, UNSPECIFIED (4) Syncope Code(s): R55 - SYNCOPE AND COLLAPSE (5) Obesity Code(s): E66.9 - OBESITY, UNSPECIFIED (6) Allergy to multiple antibiotics Code(s): Z88.1 - ALLERGY STATUS TO OTHER ANTIBIOTIC AGENTS STATUS
[2017-11-16] MEDS: CEFTAROLINE FOSAMIL ACETATE 600 MG in DEXTROSE 5%-WATER - 100 ML IVPB SCH ×2 (14:28→22:08)
--- NOTE | 2017-11-16 14:49 | PN ---
Teaching Attending Note Name of Resident: Eliot Dominguez ATTENDING PHYSICIAN STATEMENT I saw and evaluated the patient. I reviewed the resident's note and discussed the case with the resident. I agree with the resident's findings and plan as documented. SUBJECTIVE:states legs are improved and almost back to baseline. denies CP, SOB , fever, chills, N/V/C/D OBJECTIVE: Last Vital Signs Temp Pulse Resp BP Pulse Ox 98.4 F 86 18 128/64 97 11/16/17 14:00 11/16/17 14:00 11/16/17 14:00 11/16/17 14:00 11/15/17 20:42 General NAD Extremities RLE circumferential erythema improved. warm no longer tender + active serous drainage from ant maya. LLE lymphedema changes ASSESSMENT AND PLAN: 67yo F with PMH HTN. DM, fibromyalgia, lymphedema and RLS presented to the ER after syncopizing at home and found to have severe sepsis due to B/L LE cellulitis 1. Severe sepsis due to B/L LE cellulitis- afebrile. clinically improved. LLE no longer appears infected. abx switched to Ceftraroline. day 3 of total abx therapy. BCx negative. will need to f/u [facility] vasc surgeon as outpatient for management of legs to prevent recurrence and improve overall/ 2. RLQ tenderness- pain is stable. CT not showing any acute pathology 3. Normocytic anemia- liekly dilutional. no signs of bleeding. no indication for transfusion. Hgb stable. last colonoscopy was more than 10 years ago and was normal per pt 4. Syncope- was likley due to dehydration and sepsis. no repeat episodes. monitor 5. HTN- controlled. cont current management 6. DM- diet controlled. cont diabetic diet 7. RLS- cont home medications. has appt this month with neurologist 8. Lymphedema- does not have vascular surgeon. encouraged to f/u with as outpatient. may be candidate for therapy 9. DVT ppx- hep sq
[2017-11-16] MEDS ORDERED: PT OWN MED DRAWER 7, Y5N ONE (21:53)
[2017-11-16] MEDS: PRAMIPEXOLE DIHYDROCHLORIDE 1.5 MG TABLET PO SCH (22:07)
[2017-11-17] MEDS ORDERED: PT OWN MED DRAWER 7, Y5N ONE ×2 (05:42→21:08)
[2017-11-17] MEDS ORDERED: ONDANSETRON 4 MG/2 ML VIAL IVPUSH ONE (05:55)
[2017-11-17 06:11] LABS: SERUM IRON SATURATION 9 % (15-55); TOTAL IRON BINDING CAPACITY 272 ug/dL (250-450); UIBC 248 ug/dL (118-369)
[2017-11-17] MEDS: HEPARIN NA (PORCINE) 5,000 UNITS/ML 1ML VIAL SQ SCH ×3 (06:30→22:00)
[2017-11-17] MEDS: PRAMIPEXOLE DIHYDROCHLORIDE PO SCH ×2 (06:30→14:20)
[2017-11-17] MEDS: CEFTAROLINE FOSAMIL ACETATE 600 MG in DEXTROSE 5%-WATER - 100 ML IVPB SCH (09:20)
[2017-11-17] MEDS: LACTOBACILLUS ACIDOPHILUS 1 TABLET PO SCH (09:20)
[2017-11-17] MEDS: ESCITALOPRAM OXALATE 10 MG TABLET (FP) PO SCH (09:20)
[2017-11-17] MEDS: oxyCODONE HCL 5 MG TABLET PO PRN (11:26)
[2017-11-17] MEDS: LISINOPRIL 10 MG TABLET (FP) PO SCH (12:17)
[2017-11-17] MEDS: FERROUS SO4 325 MG TABLET (FP) PO SCH (14:20)
[2017-11-17] MEDS: MORPHINE SULFATE 2 MG/ML VIAL IVPUSH PRN ×2 (14:22→22:03)
--- NOTE | 2017-11-17 14:54 | PN ---
Teaching Attending Note Name of Resident: Eliot Dominguez ATTENDING PHYSICIAN STATEMENT I saw and evaluated the patient. I reviewed the resident's note and discussed the case with the resident. I agree with the resident's findings and plan as documented. SUBJECTIVE:continues to have leg pain but states its more from her RLS. denies CP, SOB, fever, chills, N/V/C/D OBJECTIVE: Last Vital Signs Temp Pulse Resp BP Pulse Ox 98.7 F 84 20 116/47 L 97 11/17/17 12:15 11/17/17 12:15 11/17/17 12:15 11/17/17 12:15 11/16/17 21:00 General NAD Extremities RLE circumferential erythema. warm no longer tender +active serous drainage from ant maya. LLE lymphedema changes ASSESSMENT AND PLAN: 67yo F with PMH HTN. DM, fibromyalgia, lymphedema and RLS presented to the ER after syncopizing at home and found to have severe sepsis due to B/L LE cellulitis 1. Severe sepsis due to B/L LE cellulitis- afebrile. overall improved however does not look much changed from yesterday. believe pt might benefit from longer IV abx treatment. will d/w ID. on Ceftraroline day 4 of total abx therapy. BCx negative. will need to f/u [facility] vasc surgeon as outpatient for management of legs to prevent recurrence and improve overall/ 2. RLQ tenderness- pain is stable. CT not showing any acute pathology 3. Normocytic anemia- liekly dilutional. no signs of bleeding. iron def anemia. will start iron supplements. educated on side effects of stool softeners. will need repeat iron supplements in 3 months. no indication for transfusion. Hgb stable. last colonoscopy was more than 10 years ago and was normal per pt 4. Syncope- was likley due to dehydration and sepsis. no repeat episodes. monitor 5. HTN- controlled. cont current management 6. DM- diet controlled. cont diabetic diet 7. RLS- cont home medications. has appt this month with neurologist 8. Lymphedema- does not have vascular surgeon. encouraged to f/u with as outpatient. may be candidate for therapy 9. DVT ppx- hep sq
--- NOTE | 2017-11-17 14:56 | PN ---
Progress Note (short form) - Note Progress Note: feels lousy having pain allover Vital Signs Period Temp Pulse Resp BP Sys/Garcia Pulse Ox Last 24 Hr 98.7 F-99.8 F 84-89 18-20 112-143/43-66 97 cor-rrr lungs clear abd soft,nt ext less erythema of both legs CBC, BMP 11/16/17 06:00 11/15/17 07:15 Microbiology 11/14/17 14:23 Blood - Peripheral Venous Blood Culture - Preliminary NO GROWTH OBTAINED AFTER 72 HOURS, INCUBATION TO CONTINUE FOR 2 DAYS. 11/16/17 12:00 Nares - Mrsa Screen - Left MRSA Screen - Final NO MRSA ISOLATED 11/16/17 12:00 Nares - Mrsa Screen - Right MRSA Screen - Final NO MRSA ISOLATED 11/14/17 14:37 Blood - Peripheral Venous Blood Culture - Preliminary NO GROWTH OBTAINED AFTER 48 HOURS, INCUBATION TO CONTINUE FOR 3 DAYS. a/p severe cellulitis of the legs improving temperature curve and wbc, blood cultures are negative she reports seiing a vascular surgeon at [facility] and being told she had lymphedema- insurance would not pay for the lymphedema machine at that time pen /sulfa allergy nares swab negative still low grade temp switch to cefazolin and if afebrile in am d/c home on keflex 500 tid for 10 days anemia f/u PMD repeat cbc in am Problem List - Problems (1) Severe sepsis Code(s): A41.9 - SEPSIS, UNSPECIFIED ORGANISM; R65.20 - SEVERE SEPSIS WITHOUT SEPTIC SHOCK (2) Lactic acidosis Code(s): E87.2 - ACIDOSIS (3) Cellulitis Code(s): L03.90 - CELLULITIS, UNSPECIFIED (4) Syncope Code(s): R55 - SYNCOPE AND COLLAPSE (5) Obesity Code(s): E66.9 - OBESITY, UNSPECIFIED (6) Allergy to multiple antibiotics Code(s): Z88.1 - ALLERGY STATUS TO OTHER ANTIBIOTIC AGENTS STATUS
--- NOTE | 2017-11-17 17:24 | PN ---
Physical Exam: SUBJECTIVE: Patient seen and examined this AM. She states her legs are slightly improved from yesterday. No overnight events noted. She says she will likely need VNS on discharge as her works and she has noone who can help her at home. She also requests to be seen by PT as she has many stairs in her house which makes her nervous. OBJECTIVE: Vital Signs Period Temp Pulse Resp BP Sys/Garcia Pulse Ox Last 24 Hr 98.7 F-99.8 F 84-89 18-20 112-143/43-66 97 GENERAL: A&O, morbidly obese, no acute distress HEAD: Normocephalic, atraumatic. EYES: PERRL, no scleral icterus EARS, NOSE, THROAT: oropharynx clear without exudates. Moist mucous membranes. NECK: supple without lymphadenopathy LUNGS: CTA b/l, no crackles or wheezes HEART: Regular rate and rhythm, mild systolic murmur ABDOMEN: Soft, nontender to palpation, normoactive bowel sounds MUSCULOSKELETAL: No bony deformities or tenderness. EXTREMITIES: 2+ pulses, warm, well-perfused. B/l 4+ pitting edema with erythema and warmth more so on the RLE, minimal change from yesterday NEUROLOGICAL: Cranial nerves II-XII grossly intact. Normal speech. PSYCHIATRIC: Cooperative. Good eye contact. Appropriate mood and affect. Laboratory Results - last 24 hr 11/16/17 11/17/17 06:00 03:17 POC Glucometer 105 Iron 24 L TIBC 272 Iron Saturation 9 L Active Medications Generic Name Dose Route Start Last Admin Trade Name Freq PRN Reason Stop Dose Admin Acetaminophen 650 mg 11/15/17 06:11 11/15/17 16:52 Tylenol - PO 650 mg Q6H PRN Administration Fever Or Pain Diphenhydramine HCl 25 mg 11/15/17 12:37 11/15/17 12:58 Benadryl - PO 25 mg Q6H PRN Administration FOR ITCHING Escitalopram Oxalate 10 mg 11/15/17 10:00 11/17/17 09:20 Lexapro - PO 10 mg DAILY DEXTER Administration Ferrous Sulfate 325 mg 11/17/17 13:30 11/17/17 14:20 Feosol - PO 325 mg DAILY DEXTER Administration Heparin Sodium (Porcine) 5,000 unit 11/14/17 22:00 11/17/17 14:20 Heparin - SQ 5,000 unit TID DEXTER Administration Cefazolin Sodium/Dextrose 2 gm in 50 mls @ 100 mls/hr 11/17/17 18:00 Ancef 2 Gm Premixed Ivpb - IVPB Q8H-IV DEXTER Lactobacillus Acidophilus 1 tab 11/15/17 16:15 11/17/17 09:20 Bacid - PO 1 tab DAILY DEXTER Administration Lisinopril 10 mg 11/15/17 10:00 11/17/17 12:17 Prinivil PO Not Given DAILY [facility] Morphine Sulfate 2 mg 11/14/17 23:00 11/17/17 14:22 Morphine Sulfate IVPUSH 2 mg Q6H PRN Administration PAIN LEVEL 7 - 10 Oxycodone HCl 5 mg 11/14/17 18:48 11/17/17 11:26 Roxicodone - PO 5 mg Q8H PRN Administration PAIN LEVEL 7 - 10 Pramipexole Dihydrochloride 1.5 mg 11/14/17 23:00 11/16/17 22:07 Mirapex - PO 1.5 mg HS DEXTER Administration Pramipexole Dihydrochloride 0. 0.375 mg 11/15/17 06:00 11/17/17 14:20 25 mg/ Pramipexole PO 0.375 mg Dihydrochloride 0.125 mg BID@0600,1400 [facility] Administration ASSESSMENT/PLAN: 67 year old female with past medical history of HTN, prediabetes, chronic dermatitis with lymphedema, restless leg syndrome, fibromyalgia, and lumbar disc herniation admitted with fevers, chills and an episode of witnessed LOC w/ o trauma at home. Sepsis secondary to B/L LE Cellulitis -Predisposed to cellulitis given chronic dermatitis and lymphedema -Clinically similar to yesterday -ID consult appreciated -Switch to Cefazolin today, if improving can likely DC on Keflex 500 TID for 10 days Syncopal Episode -likely secondary to sepsis and dehydration, no repeat episodes during this admission HTN -Lisinopril 10 mg PO Daily Lymphedema -Pt follows with vascular surgery as outpatient, has been denied lymphedema pump in the past due to insurance refusal -Pt would benefit from lymphedema pump Fibromyalgia -Pain is controlled well with Tylenol Q6, Morphine 2 mg Q6 PRN (required once today), and Oxycodone 5 mg PO Q8 -Continue home Mirapex DVT Prophylaxis -Heparin 5000 units SQ TID FEN -Fluids: none -Electrolytes: No electrolyte abnormalities, BMP in AM -Nutrition: Diabetic Diet Disposition Med/Surg Visit type - Emergency Visit Emergency Visit: Yes ED Registration Date: 11/14/17 Care time: The patient presented to the Emergency Department on the above date and was hospitalized for further evaluation of their emergent condition. - New Patient This patient is new to me today: No - Critical Care Critical Care patient: No
[2017-11-17] MEDS: CEFAZOLIN 2 GM/D5W 2 GM/50 ML ML IVPB SCH (18:27)
[2017-11-17] MEDS ORDERED: SIMETHICONE 80 MG TAB.CHEW (FP) PO PRN (21:16)
[2017-11-17] MEDS: PRAMIPEXOLE DIHYDROCHLORIDE 1.5 MG TABLET PO SCH (22:00)
[2017-11-18] MEDS ORDERED: oxyCODONE HCL 5 MG TABLET PO ONE (00:21)
[2017-11-18] MEDS: ACETAMINOPHEN 325 MG TABLET (FP) PO PRN (00:27)
[2017-11-18] MEDS: CEFAZOLIN 2 GM/D5W 2 GM/50 ML ML IVPB SCH ×3 (01:48→17:31)
[2017-11-18] MEDS ORDERED: PT OWN MED DRAWER 7, Y5N ONE (05:45)
[2017-11-18] MEDS: PRAMIPEXOLE DIHYDROCHLORIDE PO SCH ×2 (06:54→14:56)
[2017-11-18] MEDS: HEPARIN NA (PORCINE) 5,000 UNITS/ML 1ML VIAL SQ SCH ×2 (06:54→14:56)
[2017-11-18 08:06] LABS: BASO % 1.2 % (0-2.0); EOS % 6.4 % (0-4.5); HEMATOCRIT 30.6 % (32.4-45.2); HEMOGLOBIN 9.8 GM/dL (10.7-15.3); LYMPH % 17.9 % (8-40); MCH 26.1 pg (25.7-33.7); MEAN CELL VOLUME 81.5 fl (80-96); MEAN PLT VOLUME 9.6 fl (7.5-11.1); MONO % 8.2 % (3.8-10.2); NEUT % 66.3 % (42.8-82.8); PLATELET COUNT 194 K/MM3 (134-434); RBC 3.76 M/mm3 (3.60-5.2); RDW 15.6 % (11.6-15.6); WHITE BLOOD COUNT 10.2 K/mm3 (4.0-10.0)
[2017-11-18 08:30] LABS: ANION GAP 6 MMOL/L (8-16); BLOOD UREA NITROGEN 12 mg/dL (7-18); CALCIUM 8.4 mg/dL (8.5-10.1); CHLORIDE 103 mmol/L (98-107); CO2 28 mmol/L (21-32); CREATININE 0.9 mg/dL (0.55-1.3); GLUCOSE,RANDOM 83 mg/dL (74-106); POTASSIUM 4.4 mmol/L (3.5-5.1); SODIUM 137 mmol/L (136-145)
[2017-11-18] MEDS ORDERED: KETOROLAC TROMETHAMINE 15 MG/ML VIAL IVPUSH PRN (08:45)
[2017-11-18] MEDS: LISINOPRIL 10 MG TABLET (FP) PO SCH (09:00)
[2017-11-18] MEDS: LACTOBACILLUS ACIDOPHILUS 1 TABLET PO SCH (10:19)
[2017-11-18] MEDS: FERROUS SO4 325 MG TABLET (FP) PO SCH (10:19)
[2017-11-18] MEDS: ESCITALOPRAM OXALATE 10 MG TABLET (FP) PO SCH (10:19)
[2017-11-18] MEDS ORDERED: oxyCODONE HCL 5 MG TABLET PO PRN (12:04)
--- NOTE | 2017-11-18 15:31 | PN ---
Teaching Attending Note Name of Resident: Eliot Dominguez ATTENDING PHYSICIAN STATEMENT I saw and evaluated the patient. I reviewed the resident's note and discussed the case with the resident. I agree with the resident's findings and plan as documented with exceptions below. SUBJECTIVE: Patient seen and examined, leg symptoms improved. No new concerns, requesting her home oxycodone for restless leg syndrome. OBJECTIVE: Vital Signs Period Temp Pulse Resp BP Sys/Garcia Pulse Ox Last 24 Hr 98.8 F-99.3 F 82-87 20-20 115-122/45-74 97-97 Intake & Output 11/15/17 11/16/17 11/17/17 11/18/17 23:59 23:59 23:59 23:59 Intake Total 3200 1180 200 250 Balance 3200 1180 200 250 Weight 315 lb 315 lb General: sitting in bed in no acute distress Extremities: chronic lymphedea with chronic skin thickening with discoloration, scabs over lower maya bilateral lower extremities, non warm, non tender, positive pedal pulses Abdomen:soft, obese,NT Active Medications Acetaminophen (Tylenol -) 650 mg PO Q6H PRN PRN Reason: Fever Or Pain Last Admin: 11/18/17 00:27 Dose: 650 mg Diphenhydramine HCl (Benadryl -) 25 mg PO Q6H PRN PRN Reason: FOR ITCHING Last Admin: 11/15/17 12:58 Dose: 25 mg Escitalopram Oxalate (Lexapro -) 10 mg PO DAILY [facility] Last Admin: 11/18/17 10:19 Dose: 10 mg Ferrous Sulfate (Feosol -) 325 mg PO DAILY [facility] Last Admin: 11/18/17 10:19 Dose: 325 mg Heparin Sodium (Porcine) (Heparin -) 5,000 unit SQ TID DEXTER Last Admin: 11/18/17 14:56 Dose: 5,000 unit Cefazolin Sodium/Dextrose (Ancef 2 Gm Premixed Ivpb -) 2 gm in 50 mls @ 100 mls /hr IVPB Q8H-IV DEXTER Last Admin: 11/18/17 10:19 Dose: 100 mls/hr Ketorolac Tromethamine (Toradol Injection -) 15 mg IVPUSH Q6H PRN PRN Reason: PAIN LEVEL 6-10 Stop: 11/23/17 08:44 Lactobacillus Acidophilus (Bacid -) 1 tab PO DAILY [facility] Last Admin: 11/18/17 10:19 Dose: 1 tab Lisinopril (Prinivil) 10 mg PO DAILY [facility] Last Admin: 11/18/17 09:00 Dose: Not Given Oxycodone HCl (Roxicodone -) 5 mg PO Q8H PRN PRN Reason: PAIN LEVEL 6-10 Pramipexole Dihydrochloride (Mirapex -) 1.5 mg PO HS [facility] Last Admin: 11/17/17 22:00 Dose: 1.5 mg Pramipexole Dihydrochloride 0. 25 mg/ Pramipexole Dihydrochloride 0.125 mg 0.375 mg PO BID@0600,1400 [facility] Last Admin: 11/18/17 14:56 Dose: 0.375 mg Simethicone (Mylicon -) 80 mg PO Q6H PRN PRN Reason: DYSPEPSIA Last Admin: 11/17/17 22:00 Dose: 80 mg Laboratory Results - last 24 hr 11/18/17 11/18/17 06:45 06:45 WBC 10.2 H RBC 3.76 Hgb 9.8 L Hct 30.6 L MCV 81.5 MCH 26.1 MCHC 32.0 RDW 15.6 Plt Count 194 MPV 9.6 Absolute Neuts (auto) 6.8 Neutrophils % 66.3 Lymphocytes % 17.9 D Monocytes % 8.2 Eosinophils % 6.4 H Basophils % 1.2 Nucleated RBC % 0 Sodium 137 Potassium 4.4 Chloride 103 Carbon Dioxide 28 Anion Gap 6 L BUN 12 Creatinine 0.9 Creat Clearance w eGFR > 60 Random Glucose 83 Calcium 8.4 L Microbiology 11/14/17 14:37 Blood - Peripheral Venous Blood Culture - Preliminary NO GROWTH OBTAINED AFTER 96 HOURS, INCUBATION TO CONTINUE FOR 1 DAYS. 11/14/17 14:23 Blood - Peripheral Venous Blood Culture - Preliminary NO GROWTH OBTAINED AFTER 96 HOURS, INCUBATION TO CONTINUE FOR 1 DAYS. 11/16/17 12:00 Nares - Mrsa Screen - Left MRSA Screen - Final NO MRSA ISOLATED 11/16/17 12:00 Nares - Mrsa Screen - Right MRSA Screen - Final NO MRSA ISOLATED ASSESSMENT AND PLAN: 67yo F with PMH HTN. DM, fibromyalgia, lymphedema and RLS presented to the ER after syncopizing at home and found to have severe sepsis due to B/L LE cellulitis -Severe sepsis due to bilateral lower extremity cellulitis -Chronic lymphedema LE -RLQ tenderness, CT A/p neg, resolved -Normocytic anemia -Syncope, likely from pain/hypovolumia -HTN -Diet controlled DM -Restless leg syndrome Plan: ID input noted. Cefazolin day 2 )antibiotic day 5, change to keflex for 10 days on dc. Outpatient vascular surgery follow up. h/h stable. ISS, diabetic diet. Resume home oxycodone DVTPPx heparin PT eval noted, plan for SNF Dispo to SNF when bed available. Plan discussed with patient in detail, all questions answered.
[2017-11-18 17:58] VITALS: BP 131/70; PULSE 92; TEMP 99.7
--- NOTE | 2017-11-18 19:05 | DS ---
Physical Exam: SUBJECTIVE: Patient seen and examined this AM. She says that her legs are greatly improved from admission. She does say that she does not feel confident going home and is requesting to go to a SNF. OBJECTIVE: Vital Signs Period Temp Pulse Resp BP Sys/Garcia Pulse Ox Last 24 Hr 98.8 F-99.7 F 82-92 20-20 116-131/45-74 97-97 PHYSICAL EXAM GENERAL: A&O, morbidly obese, no acute distress HEAD: Normocephalic, atraumatic. EYES: PERRL, no scleral icterus EARS, NOSE, THROAT: oropharynx clear without exudates. Moist mucous membranes. NECK: supple without lymphadenopathy LUNGS: CTA b/l, no crackles or wheezes HEART: Regular rate and rhythm, normal S1 and S2 without murmur ABDOMEN: Soft, nontender to palpation, normoactive bowel sounds EXTREMITIES: 2+ pulses, warm, well-perfused. B/l 4+ pitting edema with erythema and warmth more so on the RLE NEUROLOGICAL: Cranial nerves II-XII grossly intact. Normal speech. PSYCHIATRIC: Cooperative. Good eye contact. Appropriate mood and affect. LABS Laboratory Results - last 24 hr 11/18/17 11/18/17 06:45 06:45 WBC 10.2 H RBC 3.76 Hgb 9.8 L Hct 30.6 L MCV 81.5 MCH 26.1 MCHC 32.0 RDW 15.6 Plt Count 194 MPV 9.6 Absolute Neuts (auto) 6.8 Neutrophils % 66.3 Lymphocytes % 17.9 D Monocytes % 8.2 Eosinophils % 6.4 H Basophils % 1.2 Nucleated RBC % 0 Sodium 137 Potassium 4.4 Chloride 103 Carbon Dioxide 28 Anion Gap 6 L BUN 12 Creatinine 0.9 Creat Clearance w eGFR > 60 Random Glucose 83 Calcium 8.4 L IMAGING: CXR: No acute pathology Abdomen/Pelvis CT: No sign of appendicitis, No obvious change from 08/23/2017 B/L Duplex: Negative for DVT HOSPITAL COURSE: Date of Admission:11/14/17 Date of Discharge: 11/18/17 HPI Patient is a 67 year old female with past medical history of HTN, prediabetes, chronic dermatitis with lymphedema, restless leg syndrome, fibromyalgia, and lumbar disc herniation, presented with sudden onset loss of consciousness today. Patient was sitting down on the chair, suddenly felt lightheaded and passed out. As per who witnessed the event, patient suddenly lost consciousness for about 2 minutes. She woke up confused, but denies bowel and bladder incontinence, or tongue biting. Patient complains of severe bilateral leg pain, with right more painful than the left, that starts at the hip area and going down, describing it as if her legs are twisting. She also noted that the redness in lower legs have been increasing for the past weeks, with weeping from the skin that she puts in sanitary napkins to absorb the moisture. Patient also reports having chills for the past week. Otherwise, patient denies chest pain, SOB, palpitations, diarrhea, constipation, headache, urinary symptoms. Hospital Course Pt was diagnosed with Severe Sepsis secondary to b/l LE Cellulitis. She was seen by ID who recommended Cefepime/Vanco. The patient was penicillin allergic. Her antibiotics were transitioned to ceftaroline when MRSA screen was negative. Her legs continued to resolve with antibiotics. She was switched to Cefazolin for one day and discharged on Keflex 500 mg TID for 10 days. She was instructed to follow up with her Primary care physician within one week to verify further resolution. She was also instructed to follow up with her vascular surgeon for further management of her lymphedema. Minutes to complete discharge: 35 Discharge Summary Reason For Visit: SEPSIS Current Active Problems Allergy to multiple antibiotics (Chronic) Cellulitis (Chronic) Obesity (Chronic) Restless leg syndrome (Chronic) Condition: Stable - Instructions Diet, Activity, Other Instructions: You were admitted to the hospital with sepsis caused by a skin infection in both of your legs. You were seen by an Infectious Disease doctor (antibiotic doctor) who made recommendations on which antibiotics to give you in the hospital and upon discharge. Your infection was improving with the IV antibiotics and it was determined that you could return home with antibiotics by mouth. You requested short term rehab at a nursing facility as you do not feel comfortable going home yet and do not feel confident with the stairs in your house. It was agreed that you would benefit from a rehab facility. You are being discharged on Keflex 500 mg by mouth three times a day, take one tablet in the morning, one at noon, and one at night for 10 days. It is important that you follow up with your vascular surgeon for continued management of your lymphedema as it was likely a cause of your skin infection in your legs. You should also follow up with your primary care physician within 1 week of discharge from the hospital. If you begin to have high fevers, worsening weakness, of loss of consciousness, you should call your doctor or return to the Emergency Department immediately Referrals: Kasie Mccoy MD [Primary Care Provider] - Disposition: [facility] F[facility] - Home Medications Comprehensive Discharge Medication List: Ambulatory Orders Escitalopram Oxalate [Lexapro -] 10 mg PO DAILY 02/22/16 Furosemide [Lasix] 40 mg PO DAILY 02/22/16 Lisinopril [Prinivil] 10 mg PO DAILY 02/22/16 Oxycodone HCl/Acetaminophen [Percocet 5-325 mg Tablet] 1 - 2 tab PO TID PRN 01/26 Pramipexole Dihydrochloride [Mirapex -] 0.375 mg PO BID 08/13/17 Pramipexole Dihydrochloride [Mirapex -] 1.5 mg PO HS 08/13/17 Celecoxib [CeleBREX -] 200 mg PO DAILY #7 capsule 08/15/17 Cephalexin Monohydrate [Keflex -] 500 mg PO Q8H #30 capsule 11/18/17 Diphenhydramine HCl [Benadryl Capsule -] 25 mg PO Q6H PRN capsule 11/18/17 Ferrous Sulfate [Feosol] 325 mg PO DAILY ud 11/18/17 Lactobacillus Acidophilus [Bacid -] 1 tab PO DAILY tab 11/18/17 Simethicone [Mylicon -] 80 mg PO Q6H PRN tab.chew 11/18/17 This patient is new to me today: No Emergency Visit: Yes ED Registration Date: 11/14/17 Care time: The patient presented to the Emergency Department on the above date and was hospitalized for further evaluation of their emergent condition. Critical Care patient: No - Discharge Referral Referred to [facility] Med P.C.: No
== END 2017-11-18 19:52 | DRG 872 ==
LOC: JER 13:32 → JERBED 14:53 → J6S 22:04
PROVIDERS: ADMIT Internal Medicine; ATTEND Hospitalist
DX: A41.9 Sepsis, unspecified organism (principal); E87.2 Acidosis; L03.116 Cellulitis of left lower limb; L03.115 Cellulitis of right lower limb; Z68.43 Body mass index [BMI] 50.0-59.9, adult; I10 Essential (primary) hypertension; G25.81 Restless legs syndrome; M79.7 Fibromyalgia; R00.0 Tachycardia, unspecified; E86.0 Dehydration; R55 Syncope and collapse; I89.0 Lymphedema, not elsewhere classified; D72.829 Elevated white blood cell count, unspecified; L30.9 Dermatitis, unspecified; R73.03 Prediabetes; D64.9 Anemia, unspecified; E66.01 Morbid (severe) obesity due to excess calories; R65.20 Severe sepsis without septic shock; M51.26 Other intervertebral disc displacement, lumbar region; Z88.0 Allergy status to penicillin; Z88.1 Allergy status to other antibiotic agents
CPT/HCPCS: 36415; 71046-TC-FY; 74177-TC; 80048; 80053; 82728; 82803; 82962; 83540; 83550; 83605; 83615; 83735; 84100; 84443; 84484; 85025; 85610; 87040; 87081; 90688; 93005; 93010; 93970-TC; 97116-GP; 97162-GP; 99285-25; G0008; J0131; J1644; J7030

== ENCOUNTER 2018-06-27 00:05 | Inpatient (IN) | payer OTHER, MEDICARE ==
--- NOTE | 2018-06-27 02:46 | PDOC ---
History of Present Illness - General Chief Complaint: Edema Stated Complaint: FEVER Time Seen by Provider: 06/27/18 02:46 History Source: Patient Exam Limitations: No Limitations - History of Present Illness Initial Comments: 06/27/18 03:56 68 year old woman with a significant PMH of HTN, pre diabetic, chronic dermatitis with lymphedema, restless leg syndrome, and fibromyalgia presents with fever with tmax 102.7F and recent burn 2 weeks ago on her bilateral calves from overheating of her home compression boots. The patient reports that after the tineo she had some skin break down with blisters and drainage. She did not seek medical care at that time. She denies any nausea, vomiting, dysuria, hematuria, diarreha, consitpation, chest pain, shortness of breath. She did not take anything for her fever today. Past History - Past Medical History Allergies/Adverse Reactions: Allergies Allergy/AdvReac Type Severity Reaction Status Date / Time plum Allergy Unknown Verified 06/27/18 00:12 Penicillins Allergy Verified 06/27/18 00:12 Sulfa (Sulfonamide Allergy Verified 06/27/18 00:12 Antibiotics) Home Medications: Ambulatory Orders Escitalopram Oxalate [Lexapro -] 10 mg PO DAILY 02/22/16 Furosemide [Lasix] 40 mg PO DAILY 02/22/16 Lisinopril [Prinivil] 10 mg PO DAILY 02/22/16 Oxycodone HCl/Acetaminophen [Percocet 5-325 mg Tablet] 1 - 2 tab PO TID PRN 01/26 Pramipexole Dihydrochloride [Mirapex -] 0.375 mg PO BID 08/13/17 Pramipexole Dihydrochloride [Mirapex -] 1.5 mg PO HS 08/13/17 Diphenhydramine HCl [Benadryl Capsule -] 25 mg PO Q6H PRN capsule 11/18/17 Ferrous Sulfate [Feosol] 325 mg PO DAILY ud 11/18/17 Simethicone [Mylicon -] 80 mg PO Q6H PRN tab.chew 11/18/17 CVA: No COPD: No CHF: No Diabetes: Yes HTN: Yes Psychiatric Problems: Yes - Surgical History Abdominal Surgery: Yes Orthopedic Surgery: Yes (ramirez rotater cuff sx) - Immunization History Immunization Up to Date: Yes - Suicide/Smoking/Psychosocial Hx Smoking History: Unknown if ever smoked Have you smoked in the past 12 months: No Hx Alcohol Use: No Drug/Substance Use Hx: No Substance Use Type: None Hx Substance Use Treatment: No Review of Systems - Review of Systems Able to Perform ROS?: Yes Comments:: 06/27/18 04:47 GENERAL/CONSTITUTIONAL: + fever or chills. No weakness. HEAD, EYES, EARS, NOSE AND THROAT: No change in vision. No ear pain or discharge. No sore throat. CARDIOVASCULAR: No chest pain or shortness of breath RESPIRATORY: No cough, wheezing, or hemoptysis. GASTROINTESTINAL: No nausea, vomiting, diarrhea or constipation. GENITOURINARY: No dysuria, frequency, or change in urination. MUSCULOSKELETAL: No joint or muscle swelling or pain. No neck or back pain. SKIN: No rash NEUROLOGIC: No headache, vertigo, loss of consciousness, or change in strength/ sensation. ENDOCRINE: No increased thirst. No abnormal weight change HEMATOLOGIC/LYMPHATIC: No anemia, easy bleeding, or history of blood clots. ALLERGIC/IMMUNOLOGIC: No hives or skin allergy. Is the patient limited Luxembourgish proficient: No *Physical Exam - Vital Signs Last Vital Signs Temp Pulse Resp BP Pulse Ox 100.0 F H 99 H 20 127/62 97 06/27/18 00:08 06/27/18 00:08 06/27/18 00:08 06/27/18 00:08 06/27/18 00:08 - Physical Exam Comments: 06/27/18 04:49 GENERAL: Awake, alert, and fully oriented, in no acute distress HEAD: No signs of trauma, normocephalic, atraumatic EYES: EOMI, sclera anicteric, conjunctiva clear ENT: oropharynx clear without exudates. Moist mucosa NECK: Normal ROM, supple LUNGS: No distress, speaks full sentences, clear to auscultation bilaterally HEART: Regular rate and rhythm, normal S1 and S2, no murmurs, rubs or gallops, peripheral pulses normal and equal bilaterally. ABDOMEN: Soft, nontender, normoactive bowel sounds. No guarding, no rebound. No masses EXTREMITIES : lymphedema, bilateral erythema of the calves, weeping from leg bilaterally, fungal oncchymycosis NEUROLOGICAL: Cranial nerves II through XII grossly intact. Normal speech, normal gait, no focal sensorimotor deficits SKIN: Warm, Dry, normal turgor, no rashes or lesions noted ED Treatment Course - LABORATORY CBC & Chemistry Diagram: 06/27/18 02:51 06/27/18 02:51 - RADIOLOGY Radiology Studies Ordered: Category Date Time Status CHEST X-RAY PORTABLE* [RAD] Stat Radiology 06/27/18 02:45 Ordered Medical Decision Making - Medical Decision Making 06/27/18 04:47 68 year old woman with a significant PMH of HTN, pre diabetic, chronic dermatitis with lymphedema, restless leg syndrome, and fibromyalgia presents with fever with tmax 102.7F and recent burn 2 weeks ago on her bilateral calves from overheating of her home compression boots. The patient reports that after the tineo she had some skin break down with blisters and drainage. She did not seek medical care at that time. She denies any nausea, vomiting, dysuria, hematuria, diarreha, consitpation, chest pain, shortness of breath. ED Course: consider cellulitis r/o other causes of fever tx for cellulitis - clindamycin ivf, tylenol admit for iv antibiotics discussed case with medicine team who accepts *DC/Admit/Observation/Transfer Diagnosis at time of Disposition: Cellulitis - Discharge Dispostion Condition at time of disposition: Stable Decision to Admit order: Yes - Referrals - Patient Instructions - Post Discharge Activity
[2018-06-27] MEDS ORDERED: SODIUM CHLORIDE 2,000 ML IV SCH (03:00)
[2018-06-27 03:10] LABS: BASO % 0.8 % (0-2.0); EOS % 1.9 % (0-4.5); HEMATOCRIT 36.9 % (32.4-45.2); HEMOGLOBIN 11.9 GM/dL (10.7-15.3); LYMPH % 7.7 % (8-40); MCHC 32.4 g/dl (32.0-36.0); MEAN CELL VOLUME 83.5 fl (80-96); MEAN PLT VOLUME 9.3 fl (7.5-11.1); MONO % 3.9 % (3.8-10.2); NEUT % 85.7 % (42.8-82.8); PLATELET COUNT 209 K/MM3 (134-434); RBC 4.42 M/mm3 (3.60-5.2); RDW 15.1 % (11.6-15.6); WHITE BLOOD COUNT 9.5 K/mm3 (4.0-10.0)
[2018-06-27 03:21] LABS: INR 1.11 (0.83-1.09); PROTHROMBIN TIME (PATIENT) 13.1 SEC (9.7-13.0)
[2018-06-27 03:24] LABS: ACTIVATED PTT 34.1 SECONDS (25.2-36.5)
[2018-06-27 03:32] LABS: ALBUMIN 3.6 g/dl (3.4-5.0); ALK PHOS 91 U/L (45-117); ANION GAP 6 MMOL/L (8-16); BILIRUBIN,TOTAL 0.4 mg/dL (0.2-1); BLOOD UREA NITROGEN 25 mg/dL (7-18); CALCIUM 9.1 mg/dL (8.5-10.1); CHLORIDE 103 mmol/L (98-107); CO2 28 mmol/L (21-32); CREATININE 1.1 mg/dL (0.55-1.3); GLUCOSE,RANDOM 91 mg/dL (74-106); POTASSIUM 4.4 mmol/L (3.5-5.1); SGOT/AST 8 U/L (15-37); SGPT/ALT 12 U/L (13-61); SODIUM 137 mmol/L (136-145); TOT PROT 7.6 g/dl (6.4-8.2)
[2018-06-27] MEDS ORDERED: CLINDAMYCIN 600MG PREMIX IVPB 600 MG/50 ML BAG IVPB ONE ×2 (03:40→03:55)
[2018-06-27] MEDS ORDERED: SODIUM CHLORIDE 1,000 ML IV SCH (03:45)
[2018-06-27] MEDS ORDERED: ACETAMINOPHEN 1000 MG/100 ML VIAL (NON FORMULARY) IVPB ONE (03:59)
[2018-06-27] MEDS ORDERED: ACETAMINOPHEN INJECTION 100 ML IVPB ONE (04:03)
[2018-06-27 04:28] LABS: N-TERMINAL BNP 433.9 pg/ml (5-125)
--- NOTE | 2018-06-27 05:46 | PDOC ---
Attending Attestation - Resident Resident Name: Shelby Hernández - ED Attending Attestation I have performed the following: I have examined & evaluated the patient, The case was reviewed & discussed with the resident, I agree w/resident's findings & plan - HPI HPI: 06/27/18 05:43 Pt comes with bilat leg swelling and injury from her venodyne boots. Pt has weepy legs Cellulitis - Physicial Exam PE: 07/04/18 02:29 Agree with resident exam. - Medical Decision Making 07/04/18 02:30 Pt will be admitted for cellulitis and for wound care.
--- NOTE | 2018-06-27 05:46 | HP ---
CHIEF COMPLAINT: Lower Ext. Pain PCP: Dr. Kasie Mccoy HISTORY OF PRESENT ILLNESS: 68yo F with significant history of PVD, chronic lymphedema, RLS, pre-DM, HTN who presents today with b/l lower extremity pain. Pt reports she believes this is an infection due to having the same exact presentation for which she was hospitalized here one year prior. Pt reports that she has chronic venous stasis and uses compression stockings daily which she believes has contributed to her leg pathology. Pt endorses chronic b/l lymphedema due to vascular stasis as well. She reports for the past two days she's felt increased LExt erythema and pain for which they have started weeping clear fluid currently. She experienced one episode of subjective fever and chills with one episode of loose stools (no blood; no mucus) about 1-2 days prior. Pt denies any lightheadedness, blurry vision, shortness of breath, palpitations, chest pain/discomfort, abdominal pain , active diarrhea, dysuria, polyuria. Recent Travel: Denies PAST MEDICAL HISTORY: Hypertension Pre-diabetes Chronic dermatitis Lymphedema Restless leg syndrome Fibromyalgia Disc herniation PAST SURGICAL HISTORY: -Hysterectomy -Bilateral rotator cuff surgery Social History: Smoking:nonsmoker Alcohol:non EtOH drinker Drugs: denies illicit drug use Lives with at home Family History: Allergies plum Allergy (Unknown, Verified 06/27/18 00:12) pt reporting plum allergy Penicillins Allergy (Verified 06/27/18 00:12) = Hives Sulfa (Sulfonamide Antibiotics) Allergy (Verified 06/27/18 00:12) = Hives HOME MEDICATIONS: Home Medications Medication Instructions Recorded Escitalopram Oxalate [Lexapro -] 10 mg PO DAILY 02/22/16 Furosemide [Lasix] 40 mg PO DAILY 02/22/16 Lisinopril [Prinivil] 10 mg PO DAILY 02/22/16 Oxycodone HCl/Acetaminophen 1 - 2 tab PO TID PRN 02/22/16 [Percocet 5-325 mg Tablet] Pramipexole Dihydrochloride 0.375 mg PO BID 08/13/17 [Mirapex -] Pramipexole Dihydrochloride 1.5 mg PO HS 08/13/17 [Mirapex -] Diphenhydramine HCl [Benadryl 25 mg PO Q6H PRN capsule 11/18/17 Capsule -] Ferrous Sulfate [Feosol] 325 mg PO DAILY ud 11/18/17 Simethicone [Mylicon -] 80 mg PO Q6H PRN tab.chew 11/18/17 REVIEW OF SYSTEMS As per HPI PHYSICAL EXAMINATION Vital Signs - 24 hr 06/27/18 00:08 Temperature 100.0 F H Pulse Rate 99 H Respiratory 20 Rate Blood Pressure 127/62 O2 Sat by Pulse 97 Oximetry (%) GENERAL: NAD, awake, alert, and fully oriented, in no acute distress. HEENT: NC/AT, EOMI, TONI, [id number] mucosa, no posterior oropharynx pathology, no mucosal ulcerations NECK: No JVD LUNGS: CTA bilaterally. No wheezes, and no crackles. No accessory muscle use. HEART: RRR, normal S1 and S2 with 3/6 RUSB systolic murmur noted ABDOMEN: Soft, NT/ND, normoactive bowel sounds, no guarding, EXTREMITIES: 2+ DP pulses b/l, chronic venous changes noted, chronic lymphadematous changes noted, L leg warmer than R, clear weeping noted from b/l LExt. No calf tenderness PSYCHIATRIC: Cooperative. Good eye contact. Appropriate mood and affect. SKIN: See ext exam, lichen planus noted, no rashes Laboratory Results 06/27/18 06/27/18 06/27/18 02:51 02:51 02:51 WBC 9.5 RBC 4.42 Hgb 11.9 Hct 36.9 D MCV 83.5 MCH 27.0 MCHC 32.4 RDW 15.1 Plt Count 209 MPV 9.3 Absolute Neuts (auto) 8.1 H Neutrophils % 85.7 H D Lymphocytes % 7.7 L D Monocytes % 3.9 Eosinophils % 1.9 Basophils % 0.8 Nucleated RBC % 0 PT with INR 13.10 H INR 1.11 H PTT (Actin FS) 34.1 Sodium 137 Potassium 4.4 Chloride 103 Carbon Dioxide 28 Anion Gap 6 L BUN 25 H Creatinine 1.1 Est GFR (CKD-EPI)AfAm 59.32 Est GFR (CKD-EPI)NonAf 51.18 Random Glucose 91 Lactic Acid Calcium 9.1 Total Bilirubin 0.4 AST 8 L ALT 12 L Alkaline Phosphatase 91 Troponin I < 0.02 B-Natriuretic Peptide 433.9 H Total Protein 7.6 Albumin 3.6 06/27/18 02:51 WBC RBC Hgb Hct MCV MCH MCHC RDW Plt Count MPV Absolute Neuts (auto) Neutrophils % Lymphocytes % Monocytes % Eosinophils % Basophils % Nucleated RBC % PT with INR INR PTT (Actin FS) Sodium Potassium Chloride Carbon Dioxide Anion Gap BUN Creatinine Est GFR (CKD-EPI)AfAm Est GFR (CKD-EPI)NonAf Random Glucose Lactic Acid 1.5 Calcium Total Bilirubin AST ALT Alkaline Phosphatase Troponin I B-Natriuretic Peptide Total Protein Albumin ASSESSMENT/PLAN: Lower Extremity pain Peripheral vascular disease Prediabetic Obesity HTN Restless Leg Syndrome Likely chronic changes, however concerned about cellulitis given warmth and excessive weeping of L lower extremity alongside of subjective fevers/chills and high normal WBC/LA. --Will cover with Clindamycin for now --Culturing fluid likely not significant due to high incidence of polymicrobial contamination Consulted Dr. Evans given pt's long-standing PVD Continue home dose medications: Pramipexole 0.325mg AM and 1.5mg HS Continue Iron supplementation daily Lexapro 10mg qdaily Lisinopril 10mg qdaily FEN: Fluids: None indicated Electrolyte abnoramlities: None Nutrition: Sodium/diabetic controlled PPX: DVT - Lovenox GI - Not indicated Dispo: M/S Case discussed with Dr. Sandro Aviles, DO - IM PGY-2 Visit type - Emergency Visit Emergency Visit: Yes ED Registration Date: 06/27/18 Care time: The patient presented to the Emergency Department on the above date and was hospitalized for further evaluation of their emergent condition. - New Patient This patient is new to me today: Yes Date on this admission: 06/27/18 - Critical Care Critical Care patient: No
--- NOTE | 2018-06-27 05:53 | PN ---
Teaching Attending Note Name of Resident: Marlo Aviles ATTENDING PHYSICIAN STATEMENT I saw and evaluated the patient. I reviewed the resident's note and discussed the case with the resident. I agree with the resident's findings and plan as documented. SUBJECTIVE: Seen and examined; please refer to resident note for further historical information. Briefly, this is a 68 y/o female presenting with a CC of LE pain b /l which she associates with what she believes to be an infection (cellulitis) superimposed to her chronic venous stasis changes. She is afebrile and hemodynamically stable. She has no new complaints other than this. She tells me that she feels well otherwise. She was hospitalized for a similar issue last year. She has chronic b/l lymphedema. She also endorses chronic b/l LE pain/RLS which she takes ferrous sulfate, pramipexole, and percocet for. She has weeping from the legs with some redness and induration with warmth extending throughout the LE; they feel the same on the exam and she states the pain and weeping is sym b/l. She noted a fever today so she naida to the ER. She doesn't follow with wound care but would like to. 10 sys ROS done and negative aside from HPI PMH, PSH, FH, SH reviewed Home Medications Medication Instructions Recorded Escitalopram Oxalate [Lexapro -] 10 mg PO DAILY 02/22/16 Furosemide [Lasix] 40 mg PO DAILY 02/22/16 Lisinopril [Prinivil] 10 mg PO DAILY 02/22/16 Oxycodone HCl/Acetaminophen 1 - 2 tab PO TID PRN 02/22/16 [Percocet 5-325 mg Tablet] Pramipexole Dihydrochloride 0.375 mg PO BID 08/13/17 [Mirapex -] Pramipexole Dihydrochloride 1.5 mg PO HS 08/13/17 [Mirapex -] Diphenhydramine HCl [Benadryl 25 mg PO Q6H PRN capsule 11/18/17 Capsule -] Ferrous Sulfate [Feosol] 325 mg PO DAILY ud 11/18/17 Simethicone [Mylicon -] 80 mg PO Q6H PRN tab.chew 11/18/17 OBJECTIVE: VS, labs, imaging reviewed NAD, AAO, resting comfortably in bed NC AT EOMI PERRLA B/L lymphedema with chronic venous stasis changes noted; some induration, warmth , and weeping extending over the boarders of the venous stasis changes RRR s1/2 no mgr Lungs CTAB, w/ sym exp NT ND +BS CN2-12 wnl, no fnd Normal mood, appropriate behavior B/l venous and arterial dopplers pending Echo 2017 reviewed; shows normal LVEF but elevated RVSP; pending repeat study ASSESSMENT AND PLAN: Patient presents with b/l LE edema, warmth, redness, and fever. She has been seen here for similar infection in the past. 1) LE Cellulitis -Chronic venous stasis changes in the setting of lymphedema with weeping; no WBC count but does have a temp. Checking ESR/CRP -Empiric clindamycin; MRSA screen negative last admission. Requested lines demarcating the additional rubar/induration -Venous and arterial dopplers; refer to Dr. Evans (vascular, wound care). She states her old vascular surgeon at [facility] doesn't follow with her anymore and she wishes to be associated with wound care practice. -Followup blood cultures 2) RLS -Continue home meds; verify iSTOP 3) Morbid Obesity -Mica Spreader prior to DC; can offer PT and nutritional referral. 4) Hx HTN -[facility]ine EMERALD 5) Depression -Continue lexapro 6) Elevated BNP -Doesn't appear to be overloaded; can check nonurgent echo. LE edema likely due to lymphedema. Full Code
[2018-06-27] MEDS ORDERED: PRAMIPEXOLE DIHYDROCHLORIDE 0.25 MG TABLET PO SCH (07:00)
--- NOTE | 2018-06-27 07:37 | HOSP ---
Subjective - Review of Symptoms Subjective: c/o B/L leg pain. some improvement since arrival. has not had cellulitis in the past. had temp 101.7 at home. denies Cp, SOB, fever, chills, N/v/C/D, trauma to the leg Current Medications Generic Name Dose Route Start Last Admin Trade Name Freq PRN Reason Stop Dose Admin Enoxaparin Sodium 40 mg 06/27/18 10:00 Lovenox - SQ DAILY [facility] Escitalopram Oxalate 10 mg 06/27/18 10:00 Lexapro - PO DAILY [facility] Ferrous Sulfate 325 mg 06/27/18 10:00 Feosol - PO DAILY D[facility] Sodium Chloride 1,000 mls @ 0 mls/hr 06/27/18 03:45 06/27/18 04:04 Normal Saline - IV 1,000 mls/hr ASDIR D[facility]TER Administration Wide Open Clindamycin Phosphate 300 mg in 50 mls @ 100 mls/hr 06/27/18 10:00 Cleocin 300 Mg Premix Ivpb IVPB Q8H-IV DEXTER Protocol Lisinopril 10 mg 06/27/18 10:00 Prinivil PO DAILY D[facility] Pramipexole Dihydrochloride 1.5 mg 06/27/18 22:00 Mirapex - PO HS D[facility]TER Pramipexole Dihydrochloride 0.375 mg 06/27/18 07:00 Mirapex - PO AM DEXTER Last Vital Signs Temp Pulse Resp BP Pulse Ox 101.3 F H 93 H 20 108/49 L 97 06/27/18 06:51 06/27/18 06:51 06/27/18 06:51 06/27/18 06:51 06/27/18 06:16 General NAD CV S1 S2 RRR no murmur/rub/gallop Lungs CTA B/L no wheezing/rales/rhonchi Abdomen soft NT/ND obese Extremities circumferential errythema/warmth/tenderness of entire shins B/L. chronic lympedema. no lesions or breakage in the skin noted. CBCD WBC 9.5 K/mm3 (4.0-10.0) 06/27/18 02:51 RBC 4.42 M/mm3 (3.60-5.2) 06/27/18 02:51 Hgb 11.9 GM/dL (10.7-15.3) 06/27/18 02:51 Hct 36.9 % (32.4-45.2) D 06/27/18 02:51 MCV 83.5 fl (80-96) 06/27/18 02:51 MCHC 32.4 g/dl (32.0-36.0) 06/27/18 02:51 RDW 15.1 % (11.6-15.6) 06/27/18 02:51 Plt Count 209 K/MM3 (134-434) 06/27/18 02:51 MPV 9.3 fl (7.5-11.1) 06/27/18 02:51 CMP Sodium 137 mmol/L (136-145) 06/27/18 02:51 Potassium 4.4 mmol/L (3.5-5.1) 06/27/18 02:51 Chloride 103 mmol/L (98-107) 06/27/18 02:51 Carbon Dioxide 28 mmol/L (21-32) 06/27/18 02:51 Anion Gap 6 MMOL/L (8-16) L 06/27/18 02:51 BUN 25 mg/dL (7-18) H 06/27/18 02:51 Creatinine 1.1 mg/dL (0.55-1.3) 06/27/18 02:51 Calcium 9.1 mg/dL (8.5-10.1) 06/27/18 02:51 Total Bilirubin 0.4 mg/dL (0.2-1) 06/27/18 02:51 AST 8 U/L (15-37) L 06/27/18 02:51 ALT 12 U/L (13-61) L 06/27/18 02:51 Alkaline Phosphatase 91 U/L (45-117) 06/27/18 02:51 Total Protein 7.6 g/dl (6.4-8.2) 06/27/18 02:51 Albumin 3.6 g/dl (3.4-5.0) 06/27/18 02:51 A/P 68yo F wtih PMH morbid obesity, chronic lymphedema, HTN and depression presented to the ER wtih worsening B/L LE pain and fevers and found to be septic due to cellulitis 1. Sepsis due to cellulitis- Tm102 with tachycardia. cont with IVF. started on clindamycin. PCN and sulfa allergies noted. wound care consult placed for further evaluation. pain control. pt had a lymphedema pump at home that she was using until the pain started. f/u doppler to r/o DVT. f/u BCx 2. HTN- controlled. holding lasix as pt is hydrated. cont home medication 3. RLS- cont home medication 4. depression- cont home medication 5. Mrobid obesity- BMI 45. personnel counselor on lifestyle modifications. bariatric referral on discharge 6. DVT ppx- lovenox Physical Examination Vital Signs: Vital Signs Temperature 101.3 F H 06/27/18 06:51 Pulse Rate 93 H 06/27/18 06:51 Respiratory Rate 20 06/27/18 06:51 Blood Pressure 108/49 L 06/27/18 06:51 O2 Sat by Pulse Oximetry (%) 97 06/27/18 06:16 Labs: CBC, BMP 06/27/18 02:51 06/27/18 02:51
[2018-06-27] MEDS ORDERED: PT OWN MED DRAWER 7, Y5N ONE ×2 (09:21→17:24)
[2018-06-27] MEDS ORDERED: oxyCODONE HCL 5 MG TABLET ONE (09:23)
[2018-06-27] MEDS ORDERED: ACETAMINOPHEN 325 MG TABLET (FP) ONE (09:23)
[2018-06-27] MEDS: CLINDAMYCIN 300 MG PREMIX IVPB 300 MG/50 ML BAG IVPB SCH ×2 (09:26→17:53)
[2018-06-27] MEDS: FERROUS SO4 325 MG TABLET (FP) PO SCH (09:27)
[2018-06-27] MEDS: LISINOPRIL 10 MG TABLET (FP) PO SCH (09:27)
[2018-06-27] MEDS: ESCITALOPRAM OXALATE 10 MG TABLET (FP) PO SCH (09:28)
[2018-06-27] MEDS: ENOXAPARIN NA (PORCINE) 40 MG/0.4 ML DISP.SYRIN SQ SCH (09:28)
[2018-06-27] MEDS: ACETAMINOPHEN 325 MG TABLET (FP) PO PRN (10:21)
[2018-06-27] MEDS: oxyCODONE HCL 5 MG TABLET PO PRN ×2 (10:22→21:39)
--- NOTE | 2018-06-27 10:56 | EKG ---
Test Reason : Blood Pressure : / mmHG Vent. Rate : 094 BPM Atrial Rate : 094 BPM P-R Int : 160 ms QRS Dur : 084 ms QT Int : 326 ms P-R-T Axes : 069 016 051 degrees QTc Int : 407 ms NORMAL SINUS RHYTHM WITH SINUS ARRHYTHMIA NORMAL ECG WHEN COMPARED WITH ECG OF 14-NOV-2017 13:45, NO SIGNIFICANT CHANGE WAS FOUND Confirmed by ANN-MARIE RUBIN MD ([id number]) on 06/27/2018 10:56:05 AM Referred By: Confirmed By:ANN-MARIE RUBIN MD
[2018-06-27 19:18] LABS: EPI CELLS 3.8 /HPF (0-5/HPF); HYALINE CASTS 2 /lpf (0-8); URINE APPEARANCE TURBID; URINE BACTERIA 141.2 /hpf (NEGATIVE); URINE BILIRUBIN NEGATIVE (NEGATIVE); URINE COLOR YELLOW; URINE GLUCOSE (UA) NEGATIVE (NEGATIVE); URINE KETONE NEGATIVE (NEGATIVE); URINE LEUK ESTERASE 3+ (NEGATIVE); URINE NITRITE POSITIVE (NEGATIVE); URINE PROTEIN TRACE (NEGATIVE); URINE RBC 12 /hpf (0-4); URINE UROBILINOGEN 0.2 mg/dL (0.2-1.0); URINE WBC 956 /hpf (0-5)
[2018-06-27] MEDS ORDERED: PRAMIPEXOLE DIHYDROCHLORIDE 0.5 MG TABLET PO SCH (22:00)
[2018-06-28] MEDS ORDERED: PT OWN MED DRAWER 7, Y5N ONE ×3 (01:16→21:06)
[2018-06-28] MEDS: ACETAMINOPHEN 325 MG TABLET (FP) PO PRN ×2 (01:27→13:11)
[2018-06-28] MEDS: CLINDAMYCIN 300 MG PREMIX IVPB 300 MG/50 ML BAG IVPB SCH ×3 (01:35→17:04)
[2018-06-28] MEDS: oxyCODONE HCL 5 MG TABLET PO PRN ×2 (05:06→13:11)
[2018-06-28 07:06] LABS: BASO % 0.7 % (0-2.0); EOS % 6.6 % (0-4.5); HEMATOCRIT 29.4 % (32.4-45.2); HEMOGLOBIN 9.6 GM/dL (10.7-15.3); LYMPH % 20.5 % (8-40); MCH 27.4 pg (25.7-33.7); MCHC 32.8 g/dl (32.0-36.0); MEAN CELL VOLUME 83.6 fl (80-96); MEAN PLT VOLUME 9.4 fl (7.5-11.1); MONO % 8.8 % (3.8-10.2); NEUT % 63.4 % (42.8-82.8); PLATELET COUNT 166 K/MM3 (134-434); RBC 3.52 M/mm3 (3.60-5.2); RDW 15.1 % (11.6-15.6); WHITE BLOOD COUNT 7.4 K/mm3 (4.0-10.0)
[2018-06-28 07:27] LABS: CALCIUM 8.1 mg/dL (8.5-10.1); CREATININE 0.9 mg/dL (0.55-1.3); POTASSIUM 4.3 mmol/L (3.5-5.1)
--- NOTE | 2018-06-28 08:21 | PN ---
Physical Exam: SUBJECTIVE: Pt notes having some pain in b/l legs at the border of her cellulitic process for which percocet has been helping. Pt feels her legs have been improving and that she is walking normally to the bathroom. OBJECTIVE: Vital Signs Period Temp Pulse Resp BP Sys/Garcia Pulse Ox Last 24 Hr 98.8 F-99.5 F 76-79 20-20 103-122/47-52 95 GENERAL: NAD, awake, alert, and fully oriented, in no acute distress. HEENT: NC/AT,TONI, MMM NECK: No JVD LUNGS: CTA bilaterally. No wheezes, and no crackles. No accessory muscle use. HEART: RRR, normal S1 and S2 with 3/6 RUSB systolic murmur noted ABDOMEN: Soft, NT/ND, normoactive bowel sounds, no guarding, EXTREMITIES: 2+ DP pulses b/l, chronic venous changes noted, chronic lymphadematous changes noted, Improved erythema most notably on L leg on superior margin and inferior margin around ankle, slight TTP continues, no weeping noted at this time, no purulence noted. No calf tenderness. Trace pitting edema at the ankles noted PSYCHIATRIC: Cooperative. Good eye contact. Appropriate mood and affect. SKIN: See ext exam Laboratory Results - last 24 hr 06/27/18 06/27/18 06/27/18 07:30 07:30 17:45 WBC RBC Hgb Hct MCV MCH MCHC RDW Plt Count MPV Absolute Neuts (auto) Neutrophils % Lymphocytes % Monocytes % Eosinophils % Basophils % Nucleated RBC % ESR 44 H Sodium Potassium Chloride Carbon Dioxide Anion Gap BUN Creatinine Est GFR (CKD-EPI)AfAm Est GFR (CKD-EPI)NonAf Random Glucose Calcium C-Reactive Protein 5.6 H Urine Color Yellow Urine Appearance Turbid Urine pH 6.0 D Ur Specific [place] 1.024 Urine Protein Trace Urine Glucose (UA) Negative Urine Ketones Negative Urine Blood Trace Urine Nitrite Positive H Urine Bilirubin Negative Urine Urobilinogen 0.2 Ur Leukocyte Esterase 3+ H Urine WBC (Auto) 956 Urine RBC (Auto) 12 Urine Casts (Auto) 2 U Epithel Cells (Auto) 3.8 Urine Bacteria (Auto) 141.2 06/28/18 06/28/18 05:30 05:30 WBC 7.4 RBC 3.52 L Hgb 9.6 L Hct 29.4 L D MCV 83.6 MCH 27.4 MCHC 32.8 RDW 15.1 Plt Count 166 D MPV 9.4 Absolute Neuts (auto) 4.7 Neutrophils % 63.4 D Lymphocytes % 20.5 D Monocytes % 8.8 D Eosinophils % 6.6 H D Basophils % 0.7 Nucleated RBC % 0 ESR Sodium 139 Potassium 4.3 Chloride 106 Carbon Dioxide 26 Anion Gap 7 L BUN 20 H Creatinine 0.9 Est GFR (CKD-EPI)AfAm 75.61 Est GFR (CKD-EPI)NonAf 65.24 Random Glucose 80 Calcium 8.1 L C-Reactive Protein Urine Color Urine Appearance Urine pH Ur Specific [place] Urine Protein Urine Glucose (UA) Urine Ketones Urine Blood Urine Nitrite Urine Bilirubin Urine Urobilinogen Ur Leukocyte Esterase Urine WBC (Auto) Urine RBC (Auto) Urine Casts (Auto) U Epithel Cells (Auto) Urine Bacteria (Auto) Active Medications Generic Name Dose Route Start Last Admin Trade Name Freq PRN Reason Stop Dose Admin Acetaminophen 325 mg 06/27/18 09:33 06/28/18 01:27 Tylenol - PO 325 mg Q8H PRN Administration PAIN SCALE 7-10 Enoxaparin Sodium 40 mg 06/27/18 10:00 06/27/18 09:28 Lovenox - SQ 40 mg DAILY [facility] Administration Escitalopram Oxalate 10 mg 06/27/18 10:00 06/27/18 09:28 Lexapro - PO 10 mg DAILY DEXTER Administration Ferrous Sulfate 325 mg 06/27/18 10:00 06/27/18 09:27 Feosol - PO 325 mg DAILY DEXTER Administration Clindamycin Phosphate 300 mg in 50 mls @ 100 mls/hr 06/27/18 10:00 06/28/18 01:35 Cleocin 300 Mg Premix Ivpb IVPB 100 mls/hr Q8H-IV DEXTER Administration Protocol Lisinopril 10 mg 06/27/18 10:00 06/27/18 09:27 Prinivil PO 10 mg DAILY DEXTER Administration Oxycodone HCl 5 mg 06/27/18 09:33 06/28/18 05:06 Roxicodone - PO 5 mg Q8H PRN Administration PAIN SCALE 7-10 Pramipexole Dihydrochloride 1.5 mg 06/28/18 22:00 Mirapex - PO HS DEXTER ASSESSMENT/PLAN: Sepsis 2/2 to cellulitis HTN RLS Morbid obesity Afebrile overnight with erythema improving Note PCN and sulfa allergy (hives) Continue Clinadmycin 300mg q8h given improvement HTN controlled: continue Lisinopril 10mg qdaily Can likely add back home lasix today Continued Pramipexole 1.5mg HS Continue Lexapro 10mg qDaily Restart home Lasix 40mg PO qDaily given euvolemia at this point. FEN: Fluids: None indicated currently; euvolemic Electrolyte abnormalities: None today Nutrition: Diabetic/sodium controlled PPX: DVT - Lovenox 40mg SQ GI - None indicated Dispo: Continue ABX Case discussed with Dr. Nolan Aviles, DO - IM PGY-2 Visit type - Emergency Visit Emergency Visit: Yes ED Registration Date: 06/27/18 Care time: The patient presented to the Emergency Department on the above date and was hospitalized for further evaluation of their emergent condition. - New Patient This patient is new to me today: No - Critical Care Critical Care patient: No
[2018-06-28] MEDS ORDERED: ONDANSETRON 4 MG TABLET PO ONE (08:56)
[2018-06-28] MEDS: FERROUS SO4 325 MG TABLET (FP) PO SCH (09:22)
[2018-06-28] MEDS: LISINOPRIL 10 MG TABLET (FP) PO SCH (09:22)
[2018-06-28] MEDS: ESCITALOPRAM OXALATE 10 MG TABLET (FP) PO SCH (09:23)
[2018-06-28] MEDS: ENOXAPARIN NA (PORCINE) 40 MG/0.4 ML DISP.SYRIN SQ SCH (09:23)
[2018-06-28] MEDS: FUROSEMIDE 40 MG TABLET (FP) PO SCH (10:44)
--- NOTE | 2018-06-28 11:25 | PN ---
Teaching Attending Note Name of Resident: Marlo Aviles ATTENDING PHYSICIAN STATEMENT I saw and evaluated the patient. I reviewed the resident's note and discussed the case with the resident. I agree with the resident's findings and plan as documented. SUBJECTIVE:conitnues to have pain. denies CP, SOB, fever, chills, N/V/C/D OBJECTIVE: Last Vital Signs Temp Pulse Resp BP Pulse Ox 98.3 F 74 20 129/65 95 06/28/18 10:00 06/28/18 10:00 06/28/18 10:00 06/28/18 10:00 06/28/18 09:00 General NAD Extremities circumferntial erythema/tenderness/warmth. minimal improvement since yesterday +worsening pedal edema ASSESSMENT AND PLAN: 68yo F wtih PMH morbid obesity, chronic lymphedema, HTN and depression presented to the ER wtih worsening B/L LE pain and fevers and found to be septic due to cellulitis 1. Sepsis due to cellulitis-afebrile and tachycardia resolved. cont clindaymcin day 2. d/c IVF. will re-start lasix due to worsneing edema. awaiting vasc surg eval. pain control. BCx NGTD 2. HTN- controlled. re-start lasix. cont home medication 3. RLS- cont home medication 4. depression- cont home medication 5. Morbid obesity- BMI 45. primary counselor on lifestyle modifications. bariatric referral on discharge 6. DVT ppx- lovenox
[2018-06-28] MEDS ORDERED: ACETAMINOPHEN 325 MG TABLET (FP) PO ONE (16:51)
[2018-06-28] MEDS ORDERED: ACETAMINOPHEN 1000 MG/100 ML VIAL (NON FORMULARY) IVPB ONE (20:57)
[2018-06-28] MEDS: PRAMIPEXOLE DIHYDROCHLORIDE 1.5 MG TABLET PO SCH (21:13)
[2018-06-28] MEDS ORDERED: diphenhydrAMINE HCL 25 MG CAPSULE (FP) PO ONE (23:09)
[2018-06-29] MEDS: oxyCODONE HCL 5 MG TABLET PO PRN ×2 (01:53→23:19)
[2018-06-29] MEDS: CLINDAMYCIN 300 MG PREMIX IVPB 300 MG/50 ML BAG IVPB SCH ×3 (01:53→18:10)
[2018-06-29] MEDS ORDERED: IBUPROFEN 400 MG TABLET (FP) PO ONE (05:56)
[2018-06-29 06:15] LABS: HEMATOCRIT 30.8 % (32.4-45.2); HEMOGLOBIN 10.2 GM/dL (10.7-15.3); MCH 27.5 pg (25.7-33.7); MCHC 32.9 g/dl (32.0-36.0); MEAN CELL VOLUME 83.4 fl (80-96); MEAN PLT VOLUME 9.7 fl (7.5-11.1); PLATELET COUNT 164 K/MM3 (134-434); RDW 15.2 % (11.6-15.6); WHITE BLOOD COUNT 9.8 K/mm3 (4.0-10.0)
[2018-06-29 06:47] LABS: CALCIUM 8.3 mg/dL (8.5-10.1); POTASSIUM 4.1 mmol/L (3.5-5.1)
--- NOTE | 2018-06-29 08:30 | PN ---
Physical Exam: SUBJECTIVE: Patient seen and examined at bedside- patient spiked fevers overnight tmax 102.2 she states she felt very hot throughout the night; but denies any CP/SOb?N/V still having LE pain OBJECTIVE: Vital Signs Period Temp Pulse Resp BP Sys/Garcia Pulse Ox Last 24 Hr 98.3 F-102.2 F 74-89 20-20 101-163/36-70 95 GENERAL: The patient is awake, alert, and fully oriented, in no acute distress. EYES: PEERLA: EOMI; no scleral icterus NECK: no JVD; no lymphdenopathy LUNGS: CTA B/L; no rales, rhonchi or wheezing . HEART: Regular rate and rhythm, S1, S2 without murmur, rub or gallop. ABDOMEN: Soft, nontender, nondistended, normoactive bowel sounds, no guarding, no rebound, no hepatosplenomegaly, no masses. EXTREMITIES: Chronic venous changes noted, chronic lymphadematous changes noted , Improved erythema most notably on L leg on superior NEUROLOGICAL: Cranial nerves II through XII grossly intact. Normal speech, gait not observed. PSYCH: Normal mood, normal affect. SKIN: Warm, dry, normal turgor, no rashes or lesions noted Laboratory Results - last 24 hr 06/29/18 06/29/18 05:30 05:30 WBC 9.8 RBC 3.70 Hgb 10.2 L Hct 30.8 L MCV 83.4 MCH 27.5 MCHC 32.9 RDW 15.2 Plt Count 164 MPV 9.7 Sodium 137 Potassium 4.1 Chloride 103 Carbon Dioxide 28 Anion Gap 6 L BUN 18 Creatinine 1.0 Est GFR (CKD-EPI)AfAm 66.57 Est GFR (CKD-EPI)NonAf 57.44 Random Glucose 106 Calcium 8.3 L Active Medications Generic Name Dose Route Start Last Admin Trade Name Freq PRN Reason Stop Dose Admin Acetaminophen 325 mg 06/27/18 09:33 06/28/18 13:11 Tylenol - PO 325 mg Q8H PRN Administration PAIN SCALE 7-10 Enoxaparin Sodium 40 mg 06/27/18 10:00 06/28/18 09:23 Lovenox - SQ 40 mg DAILY [facility] Administration Escitalopram Oxalate 10 mg 06/27/18 10:00 06/28/18 09:23 Lexapro - PO 10 mg DAILY [facility]TER Administration Ferrous Sulfate 325 mg 06/27/18 10:00 06/28/18 09:22 Feosol - PO 325 mg DAILY [facility]TER Administration Furosemide 40 mg 06/28/18 10:15 06/28/18 10:44 Lasix - PO 40 mg DAILY D[facility]TER Administration Clindamycin Phosphate 300 mg in 50 mls @ 100 mls/hr 06/27/18 10:00 06/29/18 01:53 Cleocin 300 Mg Premix Ivpb IVPB 100 mls/hr Q8H-IV DEXTER Administration Protocol Lisinopril 10 mg 06/27/18 10:00 06/28/18 09:22 Prinivil PO 10 mg DAILY [facility]TER Administration Oxycodone HCl 5 mg 06/27/18 09:33 06/29/18 01:53 Roxicodone - PO 5 mg Q8H PRN Administration PAIN SCALE 7-10 Pramipexole Dihydrochloride 1.5 mg 06/28/18 22:00 06/28/18 21:13 Mirapex - PO 1.5 mg HS DEXTER Administration ASSESSMENT/PLAN: 68 y/o female with PMH of morbid obesity, chronic lymphedema, HTN, depression, restless leg syndrome presented to the ER with worsening B/L LE pain and fevers ; found to be septic 2/2 cellulitis #Sepsis 2/2 cellulitis patient still spiked fevers overnight -clindamycin day 3; adding levaquin 750 mg to broaden coverage since pt still spiked o/n -dr ball seeing patient this afternoon -blood cx negative -monitor for fevers -PT eval #HTN -c/w lasix and lisinopril #Depression -c/w home dose of lexapro #Restless leg syndrome -c/w home dose of mirapex F/E/N not on fluids monitor electrolytes soidum controlled diet DVT PPX: lovenox Problem List - Problems (1) Cellulitis Code(s): L03.90 - CELLULITIS, UNSPECIFIED (2) HTN (hypertension) Code(s): I10 - ESSENTIAL (PRIMARY) HYPERTENSION (3) Obesity Code(s): E66.9 - OBESITY, UNSPECIFIED Visit type - Emergency Visit Emergency Visit: Yes ED Registration Date: 06/27/18 Care time: The patient presented to the Emergency Department on the above date and was hospitalized for further evaluation of their emergent condition. - New Patient This patient is new to me today: Yes Date on this admission: 06/29/18 - Critical Care Critical Care patient: No
[2018-06-29] MEDS ORDERED: PT OWN MED DRAWER 7, Y5N ONE ×3 (09:15→20:36)
[2018-06-29] MEDS: ENOXAPARIN NA (PORCINE) 40 MG/0.4 ML DISP.SYRIN SQ SCH (09:16)
[2018-06-29] MEDS: FUROSEMIDE 40 MG TABLET (FP) PO SCH (09:17)
[2018-06-29] MEDS: LISINOPRIL 10 MG TABLET (FP) PO SCH (09:17)
[2018-06-29] MEDS: ESCITALOPRAM OXALATE 10 MG TABLET (FP) PO SCH (09:17)
[2018-06-29] MEDS: FERROUS SO4 325 MG TABLET (FP) PO SCH (09:17)
--- NOTE | 2018-06-29 14:19 | CONSULT ---
- Consultation REQUESTING PROVIDER: CONSULT REQUEST: We have been asked to surgically evaluate this patient for bilateral leg swelling/ulcer PCP:Casie Francisco HISTORY OF PRESENT ILLNESS: 68yo F was consulted to the Vascular team for evaluation of leg swelling and LLE ulcer. Pt states that she has a long history of lymphedema and was seeing another doctor at an outside hospital for her legs that prescribed her lymph pumps. Pt states she has not followed up with her wound doctor as he was not really interested in seeing her back. Pt states that she was using them regularly up until a couple months ago, but that they started malfunctioning and got very hot. Pt states that her legs have been various levels of red for awhile, but that they had recently gotten worse and she developed fever which is why she went to the ED. Pt states that she wears her compression stockings daily. Pt denies any history of arterial disease and denies surgery on her legs. Pt denies history of stasis ulcers. PMHx: DM, Lymphedema Home Medications Medication Instructions Recorded Escitalopram Oxalate [Lexapro -] 10 mg PO DAILY 02/22/16 Furosemide [Lasix] 40 mg PO DAILY 02/22/16 Lisinopril [Prinivil] 10 mg PO DAILY 02/22/16 Oxycodone HCl/Acetaminophen 1 - 2 tab PO TID PRN 02/22/16 [Percocet 5-325 mg Tablet] Pramipexole Dihydrochloride 0.375 mg PO BID 08/13/17 [Mirapex -] Pramipexole Dihydrochloride 1.5 mg PO HS 08/13/17 [Mirapex -] Diphenhydramine HCl [Benadryl 25 mg PO Q6H PRN capsule 11/18/17 Capsule -] Ferrous Sulfate [Feosol] 325 mg PO DAILY ud 11/18/17 Simethicone [Mylicon -] 80 mg PO Q6H PRN tab.chew 11/18/17 Allergies Allergy/AdvReac Type Severity Reaction Status Date / Time plum Allergy Unknown Verified 06/27/18 00:12 Penicillins Allergy Verified 06/27/18 00:12 Sulfa (Sulfonamide Allergy Verified 06/27/18 00:12 Antibiotics) REVIEW OF SYSTEMS: CONSTITUTIONAL: Absent: diaphoresis, generalized weakness, malaise, loss of appetite, weight change CARDIOVASCULAR: Absent: chest pain, syncope, palpitations, irregular heart rate, lightheadedness , peripheral edema RESPIRATORY: Absent: cough, shortness of breath, dyspnea with exertion, wheezing, stridor, hemoptysis MUSCULOSKELETAL: Absent: myalgia, arthralgia, joint swelling, back pain, neck pain SKIN: Absent: rash, itching, pallor HEMATOLOGIC/IMMUNOLOGIC: Absent: easy bleeding, easy bruising, lymphadenopathy NEUROLOGIC: Absent: headache, focal weakness, paresthesias, dizziness, unsteady gait, seizure, mental status changes, bladder or bowel incontinence PHYSICAL EXAM: GENERAL: Awake, alert, and fully oriented, in no acute distress. HEAD: Normal with no signs of trauma. EYES: PERRL, sclera anicteric, conjunctiva clear. NECK: Normal ROM, supple without lymphadenopathy, JVD, or masses. LUNGS: Clear to auscultation bilat anteriorly. No wheezes, and no crackles. No accessory muscle use. HEART: Regular rate and rhythm. No murmurs ABDOMEN: Soft, nontender, not distended, no guarding, no rebound, no masses. No organomegaly. UPPER EXTREMITIES: 2+ pulses, warm, well-perfused. No cyanosis. Cap refill <2 seconds. No peripheral edema. LOWER EXTREMITIES: 2+ pulses, warm, well-perfused. No calf tenderness. +2 pitting edema b/l, LLE 1 cm ulceration anterior maya with serous drainage. Mild erythema on legs b/l anterior shins. NEUROLOGICAL: Normal speech, gait not observed. PSYCH: Cooperative. Good eye contact. Appropriate mood and affect. SKIN: Warm, dry, normal turgor, no rashes or lesions noted. Vital Signs Temperature 102.2 F H 06/29/18 05:54 Pulse Rate 89 06/28/18 20:41 Respiratory Rate 20 06/29/18 05:54 Blood Pressure 163/68 06/29/18 05:54 O2 Sat by Pulse Oximetry (%) 95 06/28/18 09:00 Lab Results WBC 9.8 K/mm3 (4.0-10.0) 06/29/18 05:30 RBC 3.70 M/mm3 (3.60-5.2) 06/29/18 05:30 Hgb 10.2 GM/dL (10.7-15.3) L 06/29/18 05:30 Hct 30.8 % (32.4-45.2) L 06/29/18 05:30 MCV 83.4 fl (80-96) 06/29/18 05:30 MCHC 32.9 g/dl (32.0-36.0) 06/29/18 05:30 RDW 15.2 % (11.6-15.6) 06/29/18 05:30 Plt Count 164 K/MM3 (134-434) 06/29/18 05:30 Sodium 137 mmol/L (136-145) 06/29/18 05:30 Potassium 4.1 mmol/L (3.5-5.1) 06/29/18 05:30 Chloride 103 mmol/L (98-107) 06/29/18 05:30 Carbon Dioxide 28 mmol/L (21-32) 06/29/18 05:30 Anion Gap 6 MMOL/L (8-16) L 06/29/18 05:30 BUN 18 mg/dL (7-18) 06/29/18 05:30 Creatinine 1.0 mg/dL (0.55-1.3) 06/29/18 05:30 Random Glucose 106 mg/dL (74-106) 06/29/18 05:30 Calcium 8.3 mg/dL (8.5-10.1) L 06/29/18 05:30 INR 1.11 (0.83-1.09) H 06/27/18 02:51 Problem List - Problems (1) Edema Assessment/Plan: Plan -once cellulitis is resolved, would recommend compression dressings, -pt should follow up with Dr. Evans in wound care clinic once discharge. Case discussed with Dr. Evans who agrees with plan Code(s): R60.9 - EDEMA, UNSPECIFIED
--- NOTE | 2018-06-29 14:53 | PN ---
Teaching Attending Note Name of Resident: Angelica Stacy ATTENDING PHYSICIAN STATEMENT I saw and evaluated the patient. I reviewed the resident's note and discussed the case with the resident. I agree with the resident's findings and plan as documented. SUBJECTIVE:c/o leg pain. somewhat improved since arrival. deneis Cp, SOB, fever , chills, N/V/C/D OBJECTIVE: Last Vital Signs Temp Pulse Resp BP Pulse Ox 102.2 F H 89 20 163/68 95 06/29/18 05:54 06/28/18 20:41 06/29/18 05:54 06/29/18 05:54 06/28/18 09:00 General NAD Extremities circumferential erythema/tenderness/warmth. erythema appears to be receding but remains very tender. no open wounds ASSESSMENT AND PLAN: 68yo F wtih PMH morbid obesity, chronic lymphedema, HTN and depression presented to the ER wtih worsening B/L LE pain and fevers and found to be septic due to cellulitis 1. Sepsis due to cellulitis-Tm 102.2 multiple temp spikes after being afebrile for >24H. UCx has + organism however 40-50K colonies and liekly colonization. will start levaquin. multiple allergies noted. cont clinda day 3. f/u repeat Cx. awaiting vasc surg eval. pain control. 2. HTN- above goal. likley due to pain. cont home medication. consider adjusting if persists 3. RLS- cont home medication 4. depression- cont home medication 5. Morbid obesity- BMI 45. counselor manager on lifestyle modifications. bariatric referral on discharge 6. DVT ppx- lovenox
[2018-06-29] MEDS: MINERAL OIL/PET HY-PHL TOPICAL OINTMENT 454 GM JAR TP SCH (20:59)
[2018-06-29] MEDS: PRAMIPEXOLE DIHYDROCHLORIDE 1.5 MG TABLET PO SCH (20:59)
[2018-06-29] MEDS: ACETAMINOPHEN 325 MG TABLET (FP) PO PRN (23:20)
[2018-06-30] MEDS ORDERED: PT OWN MED DRAWER 7, Y5N ONE (00:57)
[2018-06-30] MEDS: CLINDAMYCIN 300 MG PREMIX IVPB 300 MG/50 ML BAG IVPB SCH ×2 (01:02→10:13)
[2018-06-30] MEDS: ACETAMINOPHEN 325 MG TABLET (FP) PO PRN ×3 (04:41→17:32)
[2018-06-30 06:51] LABS: HEMATOCRIT 29.4 % (32.4-45.2); HEMOGLOBIN 9.7 GM/dL (10.7-15.3); MCH 27.4 pg (25.7-33.7); MCHC 33.1 g/dl (32.0-36.0); MEAN CELL VOLUME 82.7 fl (80-96); MEAN PLT VOLUME 9.7 fl (7.5-11.1); PLATELET COUNT 169 K/MM3 (134-434); RBC 3.55 M/mm3 (3.60-5.2); RDW 14.7 % (11.6-15.6); WHITE BLOOD COUNT 9.7 K/mm3 (4.0-10.0)
[2018-06-30 07:09] LABS: CALCIUM 8.3 mg/dL (8.5-10.1); CREATININE 0.9 mg/dL (0.55-1.3); POTASSIUM 3.9 mmol/L (3.5-5.1)
--- NOTE | 2018-06-30 07:44 | PN ---
Physical Exam: SUBJECTIVE: Patient seen and examined at bedside- no acute events overnight; patient had a low grade fever overnight; she states that her pain is getting slightly better but is slightly nauseous from the antibiotics- she denies any chest pains, vomiting or diarrhea OBJECTIVE: Vital Signs Period Temp Pulse Resp BP Sys/Garcia Pulse Ox Last 24 Hr 98.4 F-99.8 F 66-90 18-20 96-143/46-65 92-96 GENERAL: The patient is awake, alert, and fully oriented, in no acute distress. EYES: PEERLA: EOMI no scleral icterus NECK: no JVD; no lymphadenopathy LUNGS: CTA B/L; no rales, rhonchi or wheezing HEART: Regular rate and rhythm, S1, S2 without murmur, rub or gallop. ABDOMEN: Soft, nontender, nondistended, normoactive bowel sounds, no guarding, no rebound, no hepatosplenomegaly, no masses. EXTREMITIES: Chronic venous changes noted, chronic lymphadematous changes noted , Improved erythema most notably on L leg on superior PSYCH: Normal mood, normal affect. SKIN: Warm, dry, normal turgor, no rashes or lesions noted Laboratory Results - last 24 hr 06/30/18 05:40 Sodium 136 Potassium 3.9 Chloride 104 Carbon Dioxide 24 Anion Gap 8 BUN 16 Creatinine 0.9 Est GFR (CKD-EPI)AfAm 75.61 Est GFR (CKD-EPI)NonAf 65.24 Random Glucose 86 Calcium 8.3 L Active Medications Generic Name Dose Route Start Last Admin Trade Name Freq PRN Reason Stop Dose Admin Acetaminophen 325 mg 06/27/18 09:33 06/29/18 23:20 Tylenol - PO 325 mg Q8H PRN Administration PAIN SCALE 7-10 Acetaminophen 650 mg 06/30/18 03:08 06/30/18 04:41 Tylenol - PO 650 mg Q6H PRN Administration FEVER Emollient Ointment 1 applic 06/29/18 22:00 06/29/18 20:59 Aquaphor - TP 1 applic BID DEXTER Administration Enoxaparin Sodium 40 mg 06/27/18 10:00 06/29/18 09:16 Lovenox - SQ 40 mg DAILY DEXTER Administration Escitalopram Oxalate 10 mg 06/27/18 10:00 06/29/18 09:17 Lexapro - PO 10 mg DAILY DEXTER Administration Ferrous Sulfate 325 mg 06/27/18 10:00 06/29/18 09:17 Feosol - PO 325 mg DAILY DEXTER Administration Furosemide 40 mg 06/28/18 10:15 06/29/18 09:17 Lasix - PO 40 mg DAILY DEXTER Administration Clindamycin Phosphate 300 mg in 50 mls @ 100 mls/hr 06/27/18 10:00 06/30/18 01:02 Cleocin 300 Mg Premix Ivpb IVPB 100 mls/hr Q8H-IV DEXTER Administration Protocol Levofloxacin 750 mg 06/29/18 13:30 06/30/18 05:49 Levaquin - PO 750 mg DAILY@0600 DEXTER Administration Lisinopril 10 mg 06/27/18 10:00 06/29/18 09:17 Prinivil PO 10 mg DAILY DEXTER Administration Oxycodone HCl 5 mg 06/27/18 09:33 06/29/18 23:19 Roxicodone - PO 5 mg Q8H PRN Administration PAIN SCALE 7-10 Pramipexole Dihydrochloride 1.5 mg 06/28/18 22:00 06/29/18 20:59 Mirapex - PO 1.5 mg HS DEXTER Administration ASSESSMENT/PLAN: 68 y/o female with PMH of morbid obesity, chronic lymphedema, HTN, depression, restless leg syndrome presented to the ER with worsening B/L LE pain and fevers ; found to be septic 2/2 cellulitis #Sepsis 2/2 cellulitis patient still spiked fevers overnight -switcing patient to IV unasyn; then can switch to oral tomorrow -dr ball on boardd; patient will f/u with him in clinic -ID on board -blood cx negative -monitor for fevers -PT eval #HTN -c/w lasix and lisinopril #Depression -c/w home dose of lexapro #Restless leg syndrome -c/w home dose of mirapex F/E/N not on fluids monitor electrolytes soidum controlled diet DVT PPX: lovenox Problem List - Problems (1) Cellulitis Code(s): L03.90 - CELLULITIS, UNSPECIFIED (2) HTN (hypertension) Code(s): I10 - ESSENTIAL (PRIMARY) HYPERTENSION (3) Obesity Code(s): E66.9 - OBESITY, UNSPECIFIED Visit type - Emergency Visit Emergency Visit: Yes ED Registration Date: 06/27/18 Care time: The patient presented to the Emergency Department on the above date and was hospitalized for further evaluation of their emergent condition. - New Patient This patient is new to me today: No - Critical Care Critical Care patient: No
[2018-06-30] MEDS ORDERED: ONDANSETRON 4 MG/2 ML VIAL IVPUSH PRN (07:47)
[2018-06-30] MEDS: LISINOPRIL 10 MG TABLET (FP) PO SCH (10:10)
[2018-06-30] MEDS: ESCITALOPRAM OXALATE 10 MG TABLET (FP) PO SCH (10:10)
[2018-06-30] MEDS: FERROUS SO4 325 MG TABLET (FP) PO SCH (10:11)
[2018-06-30] MEDS: FUROSEMIDE 40 MG TABLET (FP) PO SCH (10:11)
[2018-06-30] MEDS: MINERAL OIL/PET HY-PHL TOPICAL OINTMENT 454 GM JAR TP SCH ×2 (10:11→21:29)
[2018-06-30] MEDS: ENOXAPARIN NA (PORCINE) 40 MG/0.4 ML DISP.SYRIN SQ SCH (10:11)
--- NOTE | 2018-06-30 11:44 | CON.ID ---
Consult Consult Specialty:: infectious disease Referred by:: hospitalist service Reason for Consultation:: bilateral cellulitis - History of Present Illness Chief Complaint: bilateral cellulitis History of Present Illness: 68 yo female with chronic lymphedema of her legs known to me from prior admission 06/2017 for bilateral cellulitis- MRSA negative- did well with cephalosporin treatment now admitted with tineo to her legs from malfunctioning lymphedema machine 3 weeks ago- didnot seek medical car was admitted on 06/27 with fever to 102 and pain and redness of her legs she was started on clindamycin and levaquin was subsequently added reports erythema has imrpoved- there is no drainage now fevers are resolving as well - History Source History Provided By: Patient Limitations to Obtaining History: No Limitations - Past Medical History Cardio/Vascular: Yes: Aortic Stenosis (followe dby Dr Angel Isaac), HTN, Hyperlipdemia, Other (edema/lymphedema ) ...: No Musculoskeletal: Yes: Other (dermatitis) Rheumatology: Yes: Fibromyalgia Endocrine: Yes: Diabetes Mellitus - Past Surgical History Past Surgical History: Yes: , Hysterectomy - Alcohol/Substance Use Hx Alcohol Use: No - Smoking History Smoking history: Never smoked Have you smoked in the past 12 months: No - Social History Usual Living Arrangement: With Spouse ADL: Independent Occupation: not working Place of : [facility] History of Recent Travel: No Home Medications - Allergies Allergies/Adverse Reactions: Allergies Allergy/AdvReac Type Severity Reaction Status Date / Time plum Allergy Unknown Verified 06/27/18 00:12 Penicillins Allergy Verified 06/27/18 00:12 Sulfa (Sulfonamide Allergy Verified 06/27/18 00:12 Antibiotics) - Home Medications Home Medications: Ambulatory Orders Escitalopram Oxalate [Lexapro -] 10 mg PO DAILY 02/22/16 Furosemide [Lasix] 40 mg PO DAILY 02/22/16 Lisinopril [Prinivil] 10 mg PO DAILY 02/22/16 Oxycodone HCl/Acetaminophen [Percocet 5-325 mg Tablet] 1 - 2 tab PO TID PRN 01/26 Pramipexole Dihydrochloride [Mirapex -] 0.375 mg PO BID 08/13/17 Pramipexole Dihydrochloride [Mirapex -] 1.5 mg PO HS 08/13/17 Diphenhydramine HCl [Benadryl Capsule -] 25 mg PO Q6H PRN capsule 11/18/17 Ferrous Sulfate [Feosol] 325 mg PO DAILY ud 11/18/17 Simethicone [Mylicon -] 80 mg PO Q6H PRN tab.chew 11/18/17 Family Disease History - Family Disease History Family History: Denies Review of Systems - Review of Systems Constitutional: reports: Fever Eyes: reports: No Symptoms HENT: reports: No Symptoms Neck: reports: No Symptoms Cardiovascular: reports: No Symptoms Respiratory: reports: No Symptoms Gastrointestinal: reports: No Symptoms Genitourinary: reports: Dysuria (on admission now resolved) Integumentary: reports: Erythema (of both legs with drainage) Neurological: reports: No Symptoms Physical Exam Vital Signs: Vital Signs Temperature 98.4 F 06/30/18 06:00 Pulse Rate 89 06/30/18 06:00 Respiratory Rate 20 06/30/18 06:00 Blood Pressure 126/65 06/30/18 06:00 O2 Sat by Pulse Oximetry (%) 92 L 06/29/18 21:00 Constitutional: Yes: Well Nourished, No Distress, Obese Eyes: Yes: Conjunctiva Clear HENT: Yes: Atraumatic, Normocephalic Neck: Yes: Supple, Trachea Midline Cardiovascular: Yes: Regular Rate and Rhythm, Murmur Respiratory: Yes: Regular, CTA Bilaterally Gastrointestinal: Yes: Normal Bowel Sounds, Soft. No: Tenderness, Epigastrium ...Rectal Exam: Yes: Deferred Extremities: Yes: Other (bilateral venous stasis with some erythema and honey crusting bilaterally below the knee, no lymphangitic streaking feet are dirty with mild edema bilaterally toes with fungal changes) Edema: Yes Neurological: Yes: Alert, Oriented Labs: CBC, BMP 06/30/18 05:40 06/30/18 05:40 Microbiology 06/27/18 17:45 Urine - Urine Clean Catch Urine Culture - Final Escherichia Coli- 40k-50k 06/27/18 02:51 Blood - Peripheral Venous Blood Culture - Preliminary NO GROWTH OBTAINED AFTER 72 HOURS, INCUBATION TO CONTINUE FOR 2 DAYS. 06/27/18 02:51 Blood - Peripheral Venous Blood Culture - Preliminary NO GROWTH OBTAINED AFTER 72 HOURS, INCUBATION TO CONTINUE FOR 2 DAYS. 06/28/18 21:45 Blood - Peripheral Venous Blood Culture - Preliminary NO GROWTH OBTAINED AFTER 24 HOURS, INCUBATION TO CONTINUE FOR 4 DAYS. 06/28/18 21:25 Blood - Peripheral Venous Blood Culture - Preliminary NO GROWTH OBTAINED AFTER 24 HOURS, INCUBATION TO CONTINUE FOR 4 DAYS. Imaging - Results Chest X-ray: Report Reviewed Ultrasound: Report Reviewed (no dvt) Problem List - Problems (1) Cellulitis Code(s): L03.90 - CELLULITIS, UNSPECIFIED (2) Allergy to multiple antibiotics Code(s): Z88.1 - ALLERGY STATUS TO OTHER ANTIBIOTIC AGENTS STATUS Assessment/Plan cefazolin today with plans to change to keflex in next 24-48 hours abnormal arterial dopplers- will need f/u with vascular surgery as well needs to see a traffic monitor specialist d/w resident
[2018-06-30] MEDS: IBUPROFEN 600 MG TABLET (FP) PO PRN (12:12)
[2018-06-30] MEDS: CEFAZOLIN 2 GM/D5W 2 GM/50 ML ML IVPB SCH ×2 (12:17→17:32)
[2018-06-30 13:33] VITALS: BMI 48.6
--- NOTE | 2018-06-30 15:26 | PN ---
Teaching Attending Note Name of Resident: Angelica Stacy ATTENDING PHYSICIAN STATEMENT I saw and evaluated the patient. I reviewed the resident's note and discussed the case with the resident. I agree with the resident's findings and plan as documented. SUBJECTIVE: LE discomfort and swelling improving. No overnight fever/chills. OBJECTIVE: Afebrile, Hemodynamically Stable. Last Vital Signs Temp Pulse Resp BP Pulse Ox 98.4 F 87 16 110/49 L 92 L 06/30/18 10:00 06/30/18 10:00 06/30/18 10:00 06/30/18 10:00 06/29/18 21:00 HEENT - Atraumatic, Normocephalic. Heart - S1, S2, SM Lungs - clear to auscultation Abdomen- High BMI. Soft, non-tender. Bowel Sounds normal. Extremities - bilateral edema, erythema, blisters (some de-roofed), no pustular exudate. Laboratory Results - last 24 hr 06/30/18 06/30/18 05:40 05:40 WBC 9.7 RBC 3.55 L Hgb 9.7 L Hct 29.4 L MCV 82.7 MCH 27.4 MCHC 33.1 RDW 14.7 Plt Count 169 MPV 9.7 Sodium 136 Potassium 3.9 Chloride 104 Carbon Dioxide 24 Anion Gap 8 BUN 16 Creatinine 0.9 Est GFR (CKD-EPI)AfAm 75.61 Est GFR (CKD-EPI)NonAf 65.24 Random Glucose 86 Calcium 8.3 L Current Medications Generic Name Dose Route Start Last Admin Trade Name Freq PRN Reason Stop Dose Admin Acetaminophen 325 mg 06/27/18 09:33 06/29/18 23:20 Tylenol - PO 325 mg Q8H PRN Administration PAIN SCALE 7-10 Acetaminophen 650 mg 06/30/18 03:08 06/30/18 10:37 Tylenol - PO 650 mg Q6H PRN Administration FEVER Emollient Ointment 1 applic 06/29/18 22:00 06/30/18 10:11 Aquaphor - TP 1 applic BID DEXTER Administration Enoxaparin Sodium 40 mg 06/27/18 10:00 06/30/18 10:11 Lovenox - SQ 40 mg DAILY DEXTER Administration Escitalopram Oxalate 10 mg 06/27/18 10:00 06/30/18 10:10 Lexapro - PO 10 mg DAILY DEXTER Administration Ferrous Sulfate 325 mg 06/27/18 10:00 06/30/18 10:11 Feosol - PO 325 mg DAILY DEXTER Administration Furosemide 40 mg 06/28/18 10:15 06/30/18 10:11 Lasix - PO 40 mg DAILY DEXTER Administration Cefazolin Sodium/Dextrose 2 gm in 50 mls @ 200 mls/hr 06/30/18 11:45 12:17 Ancef 2 Gm Premixed Ivpb - IVPB 200 mls/hr Q8H-IV DEXTER Administration Ibuprofen 600 mg 06/30/18 11:35 06/30/18 12:12 Motrin - PO 600 mg Q6H PRN Administration FEVER Lisinopril 10 mg 06/27/18 10:00 06/30/18 10:10 Prinivil PO 10 mg DAILY DEXTER Administration Ondansetron HCl 4 mg 06/30/18 07:47 06/30/18 10:02 Zofran Injection IVPUSH 4 mg Q6H PRN Administration NAUSEA AND/OR VOMITING Pramipexole Dihydrochloride 1.5 mg 06/28/18 22:00 06/29/18 20:59 Mirapex - PO 1.5 mg HS DEXTER Administration ASSESSMENT AND PLAN: 68 year old female with history of morbid obesity, chronic lymphedema/venous stasis dermatitis, HTN, Depression, RLS, presented with worsening B/L LE pain, swelling, tenderness, erythema, fevers and found to be septic due to cellulitis. 1. Sepsis secondary to Bilateral LE cellulitis - Sepsis resolved. Patient did not initially respond to Clindamycin. Now afebrile after 48 hours of Levaquin. Hemodynamically Stable. Evaluated by ID - for another 24 hours of IV Abx therapy - switched by ID from IV Levaquin/Clinda to IV Cefazolin. Wound Care evaluation appreciated. Continue daily lasix for lymphedema. 2. LE Arterial Insufficiency, likely PAD - LE arterial duplex shows inflow pathology. For Vascular Sx eval. No signs of acute limb ischemia. 3. HTN - Continue Lisinopril. 4. Depression - Stable. Continue Lexapro 5. RLS - Continue Mirapex. 6. Morpbid Obesity - for Bariatric referral on discharge. DVT Px - Lovenox SQ.
[2018-06-30] MEDS ORDERED: diphenhydrAMINE HCL 25 MG CAPSULE (FP) PO ONE (20:05)
[2018-06-30] MEDS: CLINDAMYCIN 600MG PREMIX IVPB 600 MG/50 ML BAG IVPB SCH (21:32)
[2018-06-30] MEDS: PRAMIPEXOLE DIHYDROCHLORIDE 1.5 MG TABLET PO SCH (21:33)
[2018-07-01] MEDS: ACETAMINOPHEN 325 MG TABLET (FP) PO PRN (01:38)
[2018-07-01] MEDS: CLINDAMYCIN 600MG PREMIX IVPB 600 MG/50 ML BAG IVPB SCH (01:39)
[2018-07-01 07:14] LABS: HEMOGLOBIN 9.8 GM/dL (10.7-15.3); MCH 27.3 pg (25.7-33.7); MCHC 32.7 g/dl (32.0-36.0); MEAN CELL VOLUME 83.6 fl (80-96); MEAN PLT VOLUME 10.2 fl (7.5-11.1); PLATELET COUNT 180 K/MM3 (134-434); RBC 3.59 M/mm3 (3.60-5.2); RDW 14.9 % (11.6-15.6); WHITE BLOOD COUNT 8.6 K/mm3 (4.0-10.0)
[2018-07-01 07:48] LABS: CALCIUM 8.1 mg/dL (8.5-10.1); CREATININE 0.9 mg/dL (0.55-1.3); POTASSIUM 3.8 mmol/L (3.5-5.1)
[2018-07-01] MEDS ORDERED: oxyCODONE HCL 5 MG TABLET PO ONE (10:00)
[2018-07-01] MEDS ORDERED: CEPHALEXIN MONOHYDRATE 500 MG CAPSULE (UD) PO SCH (10:00)
[2018-07-01] MEDS: LISINOPRIL 10 MG TABLET (FP) PO SCH (10:28)
[2018-07-01] MEDS: IBUPROFEN 600 MG TABLET (FP) PO PRN ×2 (10:28→16:33)
[2018-07-01] MEDS: ESCITALOPRAM OXALATE 10 MG TABLET (FP) PO SCH (10:28)
[2018-07-01] MEDS: FUROSEMIDE 40 MG TABLET (FP) PO SCH (10:28)
[2018-07-01] MEDS: MINERAL OIL/PET HY-PHL TOPICAL OINTMENT 454 GM JAR TP SCH (10:29)
[2018-07-01] MEDS: ENOXAPARIN NA (PORCINE) 40 MG/0.4 ML DISP.SYRIN SQ SCH (10:29)
[2018-07-01] MEDS: FERROUS SO4 325 MG TABLET (FP) PO SCH (10:29)
--- NOTE | 2018-07-01 10:43 | PN ---
Progress Note (short form) - Note Progress Note: complains of left knee pain twister her knee yesterday getting off the commode not sure she can walk Vital Signs Period Temp Pulse Resp BP Sys/Garcia Pulse Ox Last 24 Hr 97.7 F-98.4 F 72-81 18-20 108-118/44-68 96 cor-rrr lungs clear abd soft,nt ext +pain right knee to palpation, no erythema or swelling of the knee bilateral lower extremity venous stasis, minimal erythema CBC, BMP 07/01/18 05:30 07/01/18 05:30 Microbiology 06/27/18 02:51 Blood - Peripheral Venous Blood Culture - Preliminary NO GROWTH OBTAINED AFTER 96 HOURS, INCUBATION TO CONTINUE FOR 1 DAYS. 06/27/18 02:51 Blood - Peripheral Venous Blood Culture - Preliminary NO GROWTH OBTAINED AFTER 96 HOURS, INCUBATION TO CONTINUE FOR 1 DAYS. 06/28/18 21:45 Blood - Peripheral Venous Blood Culture - Preliminary NO GROWTH OBTAINED AFTER 48 HOURS, INCUBATION TO CONTINUE FOR 3 DAYS. 06/28/18 21:25 Blood - Peripheral Venous Blood Culture - Preliminary NO GROWTH OBTAINED AFTER 48 HOURS, INCUBATION TO CONTINUE FOR 3 DAYS. 06/27/18 17:45 Urine - Urine Clean Catch Urine Culture - Final Escherichia Coli a/p fevers resolved right knee pain- acute- per primary service cellulitis resolving , can switch to po keflex 500 tid venous stasis - consider compression wrapping per vascular ?abnormal arterial dopplers- vascular f/u Problem List - Problems (1) Cellulitis Code(s): L03.90 - CELLULITIS, UNSPECIFIED (2) Allergy to multiple antibiotics Code(s): Z88.1 - ALLERGY STATUS TO OTHER ANTIBIOTIC AGENTS STATUS
--- NOTE | 2018-07-01 10:56 | PN ---
Progress Note (short form) - Note Progress Note: Vascular Surgery Arterial duplex reviewed. Pt needs STALIN/PVR to be done as outpt in wound care clinic. Pt has bl palpable pedal pulses as per PA exam. Pt can be worked up for venous reflux as outpt. Please make pt a wound care appt prior to DC [phone] Frankie Evans DO
--- NOTE | 2018-07-01 15:41 | DS ---
Physical Exam: SUBJECTIVE: Patient seen and examined at bedside no acute events overnight; pateint states that she is feeling better she denies CP/SOB/N/V OBJECTIVE: Vital Signs Period Temp Pulse Resp BP Sys/Garcia Pulse Ox Last 24 Hr 97.7 F-98.3 F 72-79 20-20 110-118/50-68 96-96 PHYSICAL EXAM GENERAL: The patient is awake, alert, and fully oriented, in no acute distress.. EYES: PEERLA: EOMI no scleral icterus NECK: no JVD; no lymphadenopathy LUNGS: CTA B/L no rales, rhonchi or wheezing HEART: Regular rate and rhythm, S1, S2 without murmur, rub or gallop. ABDOMEN: Soft, nontender, nondistended, normoactive bowel sounds, no guarding, no rebound, no hepatosplenomegaly, no masses. EXTREMITIES: Chronic venous changes noted, chronic lymphadematous changes noted , Improved erythema most notably on L leg on supe PSYCH: Normal mood, normal affect. SKIN: Warm, dry, normal turgor, no rashes or lesions noted. LABS Laboratory Results - last 24 hr 07/01/18 07/01/18 05:30 05:30 WBC 8.6 RBC 3.59 L Hgb 9.8 L Hct 30.0 L MCV 83.6 MCH 27.3 MCHC 32.7 RDW 14.9 Plt Count 180 MPV 10.2 Sodium 138 Potassium 3.8 Chloride 105 Carbon Dioxide 24 Anion Gap 9 BUN 14 Creatinine 0.9 Est GFR (CKD-EPI)AfAm 75.61 Est GFR (CKD-EPI)NonAf 65.24 Random Glucose 77 Calcium 8.1 L HOSPITAL COURSE: Date of Admission:06/27/18 68yo F with significant history of PVD, chronic lymphedema, RLS, pre-DM, HTN who presents today with b/l lower extremity pain. Pt reports she believes this is an infection due to having the same exact presentation for which she was hospitalized here one year prior. Pt reports that she has chronic venous stasis and uses compression stockings daily which she believes has contributed to her leg pathology. Pt endorses chronic b/l lymphedema due to vascular stasis as well. She reports for the past two days she's felt increased LExt erythema and pain for which they have started weeping clear fluid currently. She experienced one episode of subjective fever and chills with one episode of loose stools (no blood; no mucus) about 1-2 days prior. Pt denies any lightheadedness, blurry vision, shortness of breath, palpitations, chest pain/discomfort, abdominal pain , active diarrhea, dysuria, polyuria. she was started on clindamycin but was still spiking fevers so she was broadened with levaquin; ID got on biard and patient was switched to PO keflex 500 TID for another 5 days to have a total of 10 days . she was d;c h Date of Discharge: 07/01/18 Minutes to complete discharge: 35 Discharge Summary Reason For Visit: CELLULITIS Condition: Stable - Instructions Diet, Activity, Other Instructions: You came to the emergency room with complaints of lower extremity pain and fevers and were found to have a skin/soft tissue infection of your lower extremities. We also had a vascular surgeon come to evaluate your legs; We have been treating you with antibiotics, your symptoms improved and you were stable to be discharged home. Please resume all of your home medications in addition: Please take the antibiotic Keflex 500mg three times a day for 5 more day ( 1st dose tonight; then continue from 07/02-07/06) Please follow up with your primary care physician, Dr. Sandhu within one week Please follow up with the vascular surgeon, Dr. Evans, within one week On the arterial duplex test done on your legs, there was shown to be decreased flow- please make an appointment to see Dr. Evans for further testing and evaluation For your wounds, we are giving you compression dressings as per Dr. Evans *if you begin to experience worsening leg pain, chest pains, shortness of breath , fever, please return to the emergency room immediately Referrals: Kasie Mccoy MD [Primary Care Provider] - 1 Week Frankie Evans MD [Non Staff, Medical] - 1 Week Disposition: HOME - Home Medications Comprehensive Discharge Medication List: Ambulatory Orders Escitalopram Oxalate [Lexapro -] 10 mg PO DAILY 02/22/16 Furosemide [Lasix] 40 mg PO DAILY 02/22/16 Lisinopril [Prinivil] 10 mg PO DAILY 02/22/16 Oxycodone HCl/Acetaminophen [Percocet 5-325 mg Tablet] 1 - 2 tab PO TID PRN 01/26 Pramipexole Dihydrochloride [Mirapex -] 0.375 mg PO BID 08/13/17 Pramipexole Dihydrochloride [Mirapex -] 1.5 mg PO HS 08/13/17 Diphenhydramine HCl [Benadryl Capsule -] 25 mg PO Q6H PRN capsule 11/18/17 Ferrous Sulfate [Feosol] 325 mg PO DAILY ud 11/18/17 Simethicone [Mylicon -] 80 mg PO Q6H PRN tab.chew 11/18/17 Cephalexin [Keflex] 500 mg PO TID #16 capsule 07/01/18 Problem List - Problems (1) Cellulitis Code(s): L03.90 - CELLULITIS, UNSPECIFIED (2) HTN (hypertension) Code(s): I10 - ESSENTIAL (PRIMARY) HYPERTENSION (3) Obesity Code(s): E66.9 - OBESITY, UNSPECIFIED
[2018-07-01 16:29] VITALS: BP 109/46; PULSE 87; TEMP 99.2
[2018-07-01] MEDS ORDERED: PT OWN MED DRAWER 7, Y5N ONE (17:34)
--- NOTE | 2018-07-01 17:46 | PN ---
Teaching Attending Note Name of Resident: Angelica Stacy ATTENDING PHYSICIAN STATEMENT I saw and evaluated the patient. I reviewed the resident's note and discussed the case with the resident. I agree with the resident's findings and plan as documented. SUBJECTIVE: LE discomfort and swelling improving. No overnight fever/chills. OBJECTIVE: Afebrile, Hemodynamically Stable. Last Vital Signs Temp Pulse Resp BP Pulse Ox 99.2 F 87 20 109/46 L 96 07/01/18 14:00 07/01/18 14:00 07/01/18 14:00 07/01/18 14:00 07/01/18 09:00 Heart - S1, S2, SM Lungs - clear to auscultation Abdomen- High BMI. Soft, non-tender. Bowel Sounds normal. Extremities - bilateral edema, erythema, blisters (some de-roofed), no pustular exudate. Pedal pulses intact. Laboratory Results - last 24 hr 07/01/18 07/01/18 05:30 05:30 WBC 8.6 RBC 3.59 L Hgb 9.8 L Hct 30.0 L MCV 83.6 MCH 27.3 MCHC 32.7 RDW 14.9 Plt Count 180 MPV 10.2 Sodium 138 Potassium 3.8 Chloride 105 Carbon Dioxide 24 Anion Gap 9 BUN 14 Creatinine 0.9 Est GFR (CKD-EPI)AfAm 75.61 Est GFR (CKD-EPI)NonAf 65.24 Random Glucose 77 Calcium 8.1 L Current Medications Generic Name Dose Route Start Last Admin Trade Name Freq PRN Reason Stop Dose Admin Acetaminophen 325 mg 06/27/18 09:33 06/30/18 17:32 Tylenol - PO 325 mg Q8H PRN Administration PAIN SCALE 7-10 Acetaminophen 650 mg 06/30/18 03:08 07/01/18 01:38 Tylenol - PO 650 mg Q6H PRN Administration FEVER Cephalexin HCl 500 mg 07/01/18 10:00 07/01/18 13:31 Keflex - PO 500 mg BID DEXTER Administration Emollient Ointment 1 applic 06/29/18 22:00 07/01/18 10:29 Aquaphor - TP 1 applic BID DEXTER Administration Enoxaparin Sodium 40 mg 06/27/18 10:00 07/01/18 10:29 Lovenox - SQ 40 mg DAILY DEXTER Administration Escitalopram Oxalate 10 mg 06/27/18 10:00 07/01/18 10:28 Lexapro - PO 10 mg DAILY DEXTER Administration Ferrous Sulfate 325 mg 06/27/18 10:00 07/01/18 10:29 Feosol - PO 325 mg DAILY DEXTER Administration Furosemide 40 mg 06/28/18 10:15 07/01/18 10:28 Lasix - PO 40 mg DAILY DEXTER Administration Ibuprofen 600 mg 06/30/18 11:35 07/01/18 16:33 Motrin - PO 600 mg Q6H PRN Administration FEVER Lisinopril 10 mg 06/27/18 10:00 07/01/18 10:28 Prinivil PO 10 mg DAILY DEXTER Administration Ondansetron HCl 4 mg 06/30/18 07:47 06/30/18 10:02 Zofran Injection IVPUSH 4 mg Q6H PRN Administration NAUSEA AND/OR VOMITING Pramipexole Dihydrochloride 1.5 mg 06/28/18 22:00 06/30/18 21:33 Mirapex - PO 1.5 mg HS DEXTER Administration ASSESSMENT AND PLAN: 68 year old female with history of morbid obesity, chronic lymphedema/venous stasis dermatitis, HTN, Depression, RLS, presented with worsening B/L LE pain, swelling, tenderness, erythema, fevers and found to be septic due to cellulitis. 1. Sepsis secondary to Bilateral LE cellulitis - Sepsis resolved. Hemodynamically Stable. Evaluated by ID - for discharge on Keflex. Wound Care evaluation appreciated -will follow with Wound Care as out-patient. Continue daily lasix for lymphedema. 2. LE Arterial Insufficiency, likely PAD - LE arterial duplex shows inflow pathology. Eval by Vascular Sx - needs STALIN/PVR as out-patient with Vascular Sx follow up. No signs of acute limb ischemia. 3. HTN - Continue Lisinopril. 4. Depression - Stable. Continue Lexapro 5. RLS - Continue Mirapex. Medically Stable for discharge.
== END 2018-07-01 18:37 | disposition home or self-care (01) | DRG 872 ==
LOC: JER 00:05 → JERBED 05:30 → OBSVTOIN 05:42 → J8W 06:51
PROVIDERS: ADMIT Internal Medicine
DX: A41.9 Sepsis, unspecified organism (principal); L03.115 Cellulitis of right lower limb; L03.116 Cellulitis of left lower limb; Z68.42 Body mass index [BMI] 45.0-49.9, adult; E66.01 Morbid (severe) obesity due to excess calories; I89.0 Lymphedema, not elsewhere classified; I87.8 Other specified disorders of veins; I10 Essential (primary) hypertension; L30.9 Dermatitis, unspecified; M79.7 Fibromyalgia; E11.9 Type 2 diabetes mellitus without complications; G25.81 Restless legs syndrome; I73.9 Peripheral vascular disease, unspecified; M32.9 Systemic lupus erythematosus, unspecified; Z88.1 Allergy status to other antibiotic agents
CPT/HCPCS: 36415; 71045-TC-FY; 80048; 80053; 81003; 83605; 83880; 84484; 85025; 85027; 85610; 85651; 85730; 86140; 87040; 87086; 87186; 93005; 93010; 93925-TC; 93970-TC; 97116-GP; 97161-GP; 99282-25; G0378; J0131; J7030

== ENCOUNTER 2019-02-28 14:39 | Emergency (ER) | payer OTHER, MEDICARE ==
[2019-02-28 14:55] VITALS: BMI 40.9
[2019-02-28] MEDS ORDERED: ALBUTEROL SO4 2.5/IPRATROPIUM 0.5 INH SOL 3 ML VIAL.NEB. NEB ONE ×2 (17:37→18:55)
[2019-02-28] MEDS ORDERED: ACETAMINOPHEN 325 MG TABLET (FP) PO ONE (17:37)
--- NOTE | 2019-02-28 17:37 | PDOC ---
History of Present Illness - General Chief Complaint: Respiratory Stated Complaint: SOB Time Seen by Provider: 02/28/19 17:13 History Source: Patient Exam Limitations: No Limitations Past History - Travel Traveled outside of the country in the last 30 days: No Close contact w/someone who was outside of country & ill: No - Past Medical History Allergies/Adverse Reactions: Allergies Allergy/AdvReac Type Severity Reaction Status Date / Time plum Allergy Unknown Verified 06/27/18 00:12 cyclobenzaprine Allergy Verified 02/28/19 14:55 [From Flexeril] Penicillins Allergy Verified 06/27/18 00:12 Sulfa (Sulfonamide Allergy Verified 06/27/18 00:12 Antibiotics) cefazolin AdvReac Mild Itching Verified 07/01/18 06:27 Home Medications: Ambulatory Orders Escitalopram Oxalate [Lexapro -] 10 mg PO DAILY 02/22/16 Furosemide [Lasix] 40 mg PO DAILY 02/22/16 Lisinopril [Prinivil] 10 mg PO DAILY 02/22/16 Oxycodone HCl/Acetaminophen [Percocet 5-325 mg Tablet] 1 - 2 tab PO TID PRN 01/26 Pramipexole Dihydrochloride [Mirapex -] 0.375 mg PO BID 08/13/17 Pramipexole Dihydrochloride [Mirapex -] 1.5 mg PO HS 08/13/17 Diphenhydramine HCl [Benadryl Capsule -] 25 mg PO Q6H PRN capsule 11/18/17 Ferrous Sulfate [Feosol] 325 mg PO DAILY ud 11/18/17 Simethicone [Mylicon -] 80 mg PO Q6H PRN tab.chew 11/18/17 Cephalexin [Keflex] 500 mg PO TID #16 capsule 07/01/18 Albuterol Sulfate Inhaler - [Ventolin HFA Inhaler -] 1 - 2 inh PO Q4H #1 inhaler 02/28/19 CVA: No COPD: No CHF: No Diabetes: Yes HTN: Yes Psychiatric Problems: Yes Other medical history: restless leg syndrome, stasis dermatitis - Surgical History Abdominal Surgery: Yes Orthopedic Surgery: Yes (ramirez rotater cuff sx) - Immunization History Immunization Up to Date: Yes - Psycho Social/Smoking Cessation Hx Smoking History: Never smoked Have you smoked in the past 12 months: No Hx Alcohol Use: No Drug/Substance Use Hx: No Substance Use Type: None Hx Substance Use Treatment: No Review of Systems - Review of Systems Able to Perform ROS?: Yes Comments:: 02/28/19 19:13 CONSTITUTIONAL: Present: Generalized malaise absent: fever, chills, diaphoresis, generalized weakness, malaise, loss of appetite HEENT: Absent: rhinorrhea, nasal congestion, throat pain, throat swelling, difficulty swallowing, mouth swelling, ear pain, eye pain, visual Changes CARDIOVASCULAR: Absent: chest pain, loss of consciousness, palpitations, irregular heart rate, peripheral edema RESPIRATORY: Present: Cough, wheezing, shortness of breath Absent: dyspnea with exertion, orthopnea, wheezing, stridor, hemoptysis GASTROINTESTINAL: Absent: abdominal pain, abdominal distension, nausea, vomiting, diarrhea, constipation, melena, hematochezia GENITOURINARY: Absent: dysuria, frequency, urgency, hesitancy, hematuria, flank pain, genital pain MUSCULOSKELETAL: Absent: myalgia, arthralgia, joint swelling SKIN: Absent: rash, itching, pallor NEUROLOGIC: Absent: headache, focal weakness or paresthesias, dizziness, unsteady gait, seizure, mental status changes, bladder or bowel incontinence PSYCHIATRIC: Absent: anxiety, depression, suicidal or homicidal ideation, hallucinations. Is the patient limited Arabic proficient: No *Physical Exam - Vital Signs Last Vital Signs Temp Pulse Resp BP Pulse Ox 97.5 F L 71 18 140/57 L 98 02/28/19 14:51 02/28/19 14:51 02/28/19 14:51 02/28/19 14:51 02/28/19 14:51 - Physical Exam 02/28/19 20:52 GENERAL: Well developed, well nourished. Awake and alert. No acute distress. HEENT: Normocephalic, atraumatic. PERRLA, EOMI. No conjunctival pallor. Sclera are non- icteric. Moist mucous membranes. Oropharynx is clear. NECK: Supple. Full ROM. No JVD. Carotid pulses 2+ and symmetric, without bruits. No thyromegaly. No lymphadenopathy. CARDIOVASCULAR: Regular rate and rhythm. No murmurs, rubs, or gallops. Distal pulses are 2+ and symmetric. PULMONARY: No evidence of respiratory distress. Lungs clear to auscultation bilaterally. No wheezing, rales or rhonchi. ABDOMINAL: Soft. Non-tender. Non-distended. No rebound or guarding. No organomegaly. Normoactive bowel sounds. MUSCULOSKELETAL Normal range of motion at all joints. No bony deformities or tenderness. No CVA tenderness. EXTREMITIES: No cyanosis. No clubbing. No edema. No calf tenderness. SKIN: Warm and dry. Normal capillary refill. No rashes. No jaundice. NEUROLOGICAL: Alert, awake, appropriate. Cranial nerves 2-12 intact. No deficits to light touch and temperature in face, upper extremities and lower extremities. No motor deficits in the in face, upper extremities and lower extremities. Normoreflexic in the upper and lower extremities. Normal speech. Toes are down- going bilaterally. Gait is normal without ataxia. PSYCHIATRIC: Cooperative. Good eye contact. Appropriate mood and affect. ED Treatment Course - LABORATORY CBC & Chemistry Diagram: 02/28/19 18:15 02/28/19 18:15 Medical Decision Making - Medical Decision Making 03/01/19 01:48 Patient is a 68-year-old female past medical history of [id number] diabetes, hypertension, presents to the ER today for shortness of breath and generalized body aches. She states that yesterday she felt like she is having an asthma exacerbation. She does not have a history of asthma. She states that she had some wheezing. She states that her son who had been visiting had similar symptoms last week. She states that today her breathing is better, however she does feel like she has body aches. Denies sore throat, earache, cough, chest pain, shortness of breath nausea, vomiting and urinary symptoms. A/P: URI On exam lungs are clear to auscultation bilaterally with no wheezes rales or rhonchi. Throat is unremarkable. Chest x-ray shows no evidence of pneumonia. EKG shows a normal sinus rhythm 72 bpm. Normal intervals and axis. No acute ST -T wave changes. Lab work is also unremarkable. No leukocytosis, electrolytes within normal limits Likely a viral URI. Patient feels better after DuoNeb given in the ER. Discharge home with albuterol inhaler and primary care follow-up for this week. Strict return precautions given. I discussed the physical exam findings, ancillary test results and final diagnoses with the patient. I answered all of the patient's questions. The patient was satisfied with the care received and felt comfortable with the discharge plan and treatment plan. The Patient agrees to follow up with the primary care physician/specialist within 24-72 hours. Return precautions were given. Discharge - Discharge Information Problems reviewed: Yes Clinical Impression/Diagnosis: URI (upper respiratory infection) Qualifiers: URI type: unspecified viral URI Qualified Code(s): J06.9 - Acute upper respiratory infection, unspecified Condition: Stable Disposition: HOME - Admission No - Additional Discharge Information Prescriptions: Albuterol Sulfate Inhaler - [Ventolin HFA Inhaler -] 1 - 2 inh PO Q4H #1 inhaler - Follow up/Referral Referrals: Flako Zepeda MD [Staff Physician] - - Patient Discharge Instructions Patient Printed Discharge Instructions: DI for Viral Upper Respiratory Infection -- Adult Additional Instructions: You have an upper respiratory infection, or the common cold. Your flu testing was negative today. Please take Tylenol 650 mg every 4 hours as needed for pain or fever. Please use the albuterol inhaler every 4 hours as needed for shortness of breath or cough. Drink plenty of fluids. Cough drops and warm tea may help your symptoms as well. Please follow up with her primary care doctor this week. Return to the emergency department if you have difficulty breathing, shortness of breath, worsening pain, nausea, vomiting or if you have any changes in your symptoms. - Post Discharge Activity Work/Back to School Note: Back to Work
[2019-02-28 18:34] LABS: BASO % 1.1 % (0-2.0); EOS % 3.1 % (0-4.5); HEMATOCRIT 40.7 % (32.4-45.2); HEMOGLOBIN 13.3 GM/dL (10.7-15.3); LYMPH % 30.9 % (8-40); MCH 26.6 pg (25.7-33.7); MCHC 32.7 g/dl (32.0-36.0); MEAN CELL VOLUME 81.4 fl (80-96); MEAN PLT VOLUME 10.2 fl (7.5-11.1); MONO % 5.4 % (3.8-10.2); NEUT % 59.5 % (42.8-82.8); PLATELET COUNT 192 K/MM3 (134-434); RDW 16.9 % (11.6-15.6); WHITE BLOOD COUNT 8.1 K/mm3 (4.0-10.0)
[2019-02-28] MEDS ORDERED: ACETAMINOPHEN 325 MG TABLET (FP) ONE (18:55)
[2019-02-28 19:11] LABS: ALBUMIN 3.8 g/dl (3.4-5.0); ALK PHOS 84 U/L (45-117); ANION GAP 3 MMOL/L (8-16); BILIRUBIN,TOTAL 0.4 mg/dL (0.2-1); BLOOD UREA NITROGEN 32.9 mg/dL (7-18); CALCIUM 9.3 mg/dL (8.5-10.1); CHLORIDE 108 mmol/L (98-107); CO2 28 mmol/L (21-32); GLUCOSE,RANDOM 88 mg/dL (74-106); POTASSIUM 4.7 mmol/L (3.5-5.1); SGOT/AST 14 U/L (15-37); SGPT/ALT 19 U/L (13-61); SODIUM 139 mmol/L (136-145); TOT PROT 7.8 g/dl (6.4-8.2)
[2019-02-28 20:27] VITALS: BP 130/54; PULSE 77; TEMP 97.9
--- NOTE | 2019-03-01 09:58 | EKG ---
Test Reason : Blood Pressure : / mmHG Vent. Rate : 072 BPM Atrial Rate : 072 BPM P-R Int : 166 ms QRS Dur : 088 ms QT Int : 394 ms P-R-T Axes : 026 010 050 degrees QTc Int : 431 ms NORMAL SINUS RHYTHM NORMAL ECG WHEN COMPARED WITH ECG OF 27-JUN-2018 03:15, NO SIGNIFICANT CHANGE WAS FOUND Confirmed by BA WILLIAMSON MD ([id number]) on 03/01/2019 9:58:04 AM Referred By: Confirmed By:BA WILLIAMSON MD
== END 2019-02-28 21:03 | disposition home or self-care (01) ==
LOC: JER 14:39
PROC: 3E0F7GC Introduction of Other Therapeutic Substance into Respiratory Tract, Via Natural or Artificial Opening (ICD-10-PCS; principal; 2019-02-28)
DX: J06.9 Acute upper respiratory infection, unspecified (principal); B97.89 Other viral agents as the cause of diseases classified elsewhere; I10 Essential (primary) hypertension; E11.9 Type 2 diabetes mellitus without complications; Z79.84 Long term (current) use of oral hypoglycemic drugs; G25.81 Restless legs syndrome; Z86.59 Personal history of other mental and behavioral disorders; I87.2 Venous insufficiency (chronic) (peripheral); Z88.0 Allergy status to penicillin; Z88.2 Allergy status to sulfonamides; Z88.1 Allergy status to other antibiotic agents; Z88.8 Allergy status to other drugs, medicaments and biological substances; Z91.018 Allergy to other foods
CPT/HCPCS: 36415; 71046-TC-FY; 80053; 82550; 84484; 85025; 87804; 93005; 93010; 94640; 99282-25

== ENCOUNTER 2020-05-08 06:08 | Emergency (ER) | payer OTHER, MEDICARE ==
[2020-05-08 06:53] VITALS: BMI 31.1
[2020-05-08] MEDS ORDERED: ONDANSETRON 4 MG/2 ML VIAL IVPUSH ONE (07:37)
[2020-05-08] MEDS ORDERED: SODIUM CHLORIDE 500 ML IV STA (07:37)
[2020-05-08] MEDS ORDERED: MECLIZINE HCL 25 MG TABLET (FP) PO ONE (07:37)
[2020-05-08] MEDS ORDERED: ACETAMINOPHEN 1000 MG/100 ML VIAL (NON FORMULARY) IVPB ONE (07:55)
[2020-05-08] MEDS ORDERED: METOCLOPRAMIDE HCL INJECTION 10 MG/2 ML VIAL IVPB ONE (07:55)
[2020-05-08] MEDS ORDERED: ACETAMINOPHEN INJECTION 100 ML IVPB ONE (08:15)
[2020-05-08] MEDS ORDERED: METOCLOPRAMIDE HCL INJECTION 10 MG/2 ML VIAL ONE (08:15)
[2020-05-08 08:53] LABS: BASO % 0.3 % (0-2.0); EOS % 0.1 % (0-4.5); HEMATOCRIT 41.6 % (32.4-45.2); HEMOGLOBIN 14.3 GM/dL (10.7-15.3); LYMPH % 9.4 % (8-40); MCHC 34.5 g/dl (32.0-36.0); MEAN CELL VOLUME 84.1 fl (80-96); MEAN PLT VOLUME 10.5 fl (7.5-11.1); MONO % 1.5 % (3.8-10.2); NEUT % 88.7 % (42.8-82.8); PLATELET COUNT 163 K/MM3 (134-434); RBC 4.94 M/mm3 (3.60-5.2); RDW 14.2 % (11.6-15.6); WHITE BLOOD COUNT 9.8 K/mm3 (4.0-10.0)
[2020-05-08 08:56] LABS: CHLORIDE 107 mmol/L (98-107); POTASSIUM 4.3 mmol/L (3.5-5.1); SODIUM 144 mmol/L (136-145)
[2020-05-08 08:58] LABS: CALCIUM 9.7 mg/dL (8.5-10.1)
[2020-05-08 08:59] LABS: ALBUMIN 3.7 g/dl (3.4-5.0); ANION GAP 7 MMOL/L (8-16); BLOOD UREA NITROGEN 14.2 mg/dL (7-18); CO2 30 mmol/L (21-32); GLUCOSE,RANDOM 114 mg/dL (74-106)
[2020-05-08 09:02] LABS: CREATININE 1.1 mg/dL (0.55-1.3); SGOT/AST 14 U/L (15-37); SGPT/ALT 19 U/L (13-61)
[2020-05-08 09:03] LABS: BILIRUBIN,TOTAL 0.5 mg/dL (0.2-1); TOT PROT 7.8 g/dl (6.4-8.2)
[2020-05-08 09:05] LABS: ALK PHOS 95 U/L (45-117)
[2020-05-08 09:10] LABS: EPI CELLS 33 /uL (0-25.1); HYALINE CASTS 1 /uL (0-3.1); URINE APPEARANCE CLOUDY; URINE BACTERIA 4213 /uL (0-1359); URINE BILIRUBIN NEGATIVE (NEGATIVE); URINE COLOR YELLOW; URINE GLUCOSE (UA) NEGATIVE (NEGATIVE); URINE KETONE NEGATIVE (NEGATIVE); URINE LEUK ESTERASE TRACE (NEGATIVE); URINE NITRITE NEGATIVE (NEGATIVE); URINE PROTEIN 1+ (NEGATIVE); URINE UROBILINOGEN 0.2 mg/dL (0.2-1.0); URINE WBC 31 /uL (0-25.8)
[2020-05-08] MEDS ORDERED: ONDANSETRON 4 MG/2 ML VIAL IVPB ONE (09:50)
[2020-05-08] MEDS ORDERED: IBUPROFEN 800 MG/8 ML IJ IVPB ONE ×2 (09:52→10:07)
[2020-05-08 10:02] LABS: LIPASE 32 U/L (73-393)
[2020-05-08] MEDS ORDERED: ONDANSETRON 4 MG/2 ML VIAL ONE (10:07)
[2020-05-08 13:31] VITALS: BP 148/74; PULSE 74; TEMP 98.2
== END 2020-05-08 14:36 | disposition home or self-care (01) ==
LOC: JER 06:08
PROC: 3E0333Z Introduction of Anti-inflammatory into Peripheral Vein, Percutaneous Approach (ICD-10-PCS; principal; 2020-05-08)
PROC: 3E033GC Introduction of Other Therapeutic Substance into Peripheral Vein, Percutaneous Approach (ICD-10-PCS; 2020-05-08)
PROC: 3E033GC Introduction of Other Therapeutic Substance into Peripheral Vein, Percutaneous Approach (ICD-10-PCS; 2020-05-08)
PROC: 3E033GC Introduction of Other Therapeutic Substance into Peripheral Vein, Percutaneous Approach (ICD-10-PCS; 2020-05-08)
PROC: 3E0337Z Introduction of Electrolytic and Water Balance Substance into Peripheral Vein, Percutaneous Approach (ICD-10-PCS; 2020-05-08)
DX: G43.019 Migraine without aura, intractable, without status migrainosus (principal)
CPT/HCPCS: 36415; 70450-TC; 80053; 81003; 82550; 83690; 84484; 85025; 87086; 87186; 93005; 93010; 96361; 96374; 96375; 99285-25; C9803; J0131; U0003; U0005